=== PATIENT | male | born 1960 | race Caucasian/White ===

== ENCOUNTER 2025-03-20 19:11 | Emergency (ER) | payer MEDICARE, MEDICAID, SELFPAY ==
--- NOTE | ~2025-03-20 | XR_ITS ---
EXAMINATION: XR chest 2V Exam Date/Time: 03/20/2025 19:35 CDT HISTORY: L shoulder pain Comparison: None. RESULT: Lines, tubes, and devices: An electronic device projects over the chest. Surgical clips over the GE junction. Lungs and pleura: Clear. Cardiomediastinal silhouette: Unremarkable. Other: No acute upper abdominal finding. Mildly distracted transverse fracture of the superior angle of the right scapula. The right AC joint is widened to 12 mm. IMPRESSION: No acute cardiopulmonary process. Acute versus chronic fracture of the superior angle of the right scapula. Right AC joint widening as can be seen with acute or chronic low-grade AC joint injury. Reviewed, dictated and finalized at location K. IMPRESSION: No acute cardiopulmonary process. Acute versus chronic fracture of the superior angle of the right scapula. Right AC joint widening as can be seen with acute or chronic low-grade AC joint jaime dominguez.
--- NOTE | ~2025-03-20 | XR_ITS ---
EXAM: XR shoulder LT min 2V DATE: 03/20/2025 19:49 HISTORY: L shoulder pain . COMPARISON: None available. FINDINGS: Normal mineralization. No fracture or dislocation. No lytic or blastic lesion. Moderate AC joint and glenohumeral joint degenerative change. No erosion or periosteal change. Soft tissues with in normal limits. An electronic device projects over the midline chest. IMPRESSION: No acute osseous finding in the left shoulder. Reviewed, dictated and finalized at location K.
[2025-03-20 19:13] VITALS: BP 132/74; PULSE 71; RESP 16; TEMP 36.7; O2SAT 100
--- OUTSIDE RECORDS SUMMARY | 2025-03-20 19:14 | XMS_ITS | Data Portability ---
Author Organization [facility] [employer], [facility] Address [address] [place] [address] Assessment No assessment recorded. Plan of Treatment Reminders Order Date Submit Date Provider Last Modified By Organization Details Last Modified Time Details Appointments None recorded. Lab drug screen, urine 2023 024 keyer In-Office Order, Internal Use Only DO Not Attach Compendium DO Not Attach Compendium, Do Not Delete/merge, [id number] 4 17:51:21 urinalysis, dipstick 2023 024 keyer In-House Results, For Internal Use Only, Do Not Delete/merge, [id number] 4 17:51:14 Referral hematologis t referral 2023 024 GIORGIO Ceballos MD, [address] [place], [address], 5 05:01:51 oral surgery/den tist referral 2023 024 GIORGIO [facility], [address] [place], [address], 5 05:01:33 pain management referral 2023 024 [facility], [address] [place], [address], 5 05:01:33 cardiologis t referral 2023 024 GIORGIO Aguila [facility], [address] [place], [address], 5 05:01:33 psychiatris t referral 2023 024 GIORGIO Analia Arnold hnp, [address] [facility] [address], [place], [address], 5 05:01:33 EGD referral 2023 024 GIORGIO Aguila [facility] General Surgery, [address] [place], [address], 4 05:01:40 orthopedic surgeon referral 2023 024 GIORGIO Sorto MD, [address] [place] [address] , [place], [address], 4 05:01:40 Procedures None recorded. Surgeries None recorded. Imaging LDCT, chest, for lung cancer screening 2023 024 [facility] (Radiology), [address] [place], [address], 4 05:01:40 electrocard iogram, routine ECG, 12 leads min 2023 024 [facility] (Radiology), [address] [place] [address], [address], 4 05:01:40 US, echocardiog annalise 2023 024 [facility] (Radiology), [address] [place], [address], 4 05:01:05 Medication Orders celecoxib 200 mg capsule 2023 024 GIORGIO Chung. [facility] [place], [place], [address] [place], [place], [id number], 5 14:55:00 amitriptyli ne 75 mg tablet 2023 024 GIORGIO [facility] [place], [address], [place], [id number], 13:55:02 pantoprazol e 40 mg tablet,david yed release 2023 GIORGIO [facility]. [facility] [place], [address], [place], [id number], 5 10:03:51 atorvastati n 40 mg tablet 2023 GIORGIO Chung. [facility] [place], [address], [place], [id number], 13:55:01 ropinirole 3 mg tablet 2023 GIORGIO Chung. [facility] [place], [address], [place], [id number], 13:55:02 ergocalcife rol (vitamin D2) 1,250 mcg (50,000 unit) capsule 2023 GIORGIO Chung. [facility] [place], [address], [place], [id number], 4 09:31:29 metoprolol succinate ER 25 mg tablet,exte nded release 24 hr 2023 024 GIORGIO Chung. [facility] [place], [address], [place], [id number], 5 13:55:04 gabapentin 300 mg capsule 2023 024 GIORGIO Chung. [facility] [place], [address], [place], [id number], 13:55:03 tamsulosin 0.4 mg capsule 2023 024 GIORGIO Chung. [facility] [place], [facility], [place], [id number], 5 13:55:03 amoxicillin 875 mg-potgabrielleu m clavulanate 125 mg tablet 2023 024 ashley Chung. [facility] [place], [facility], [place], [id number], 4 13:35:35 bisoprolol fumarate 10 mg tablet 2022 023 kristie Chung. [facility] [place], [facility], [place], [id number], 4 15:27:51 Patient TargetsNo targets recorded. Patient Instructions Encounter Date Encounter Id Patient Instructions Last Modified By Organization Details Last Modified Time 08/01/2023 [id number] insomnia: care instructions keyer Not available 08/01/2023 10:36:36 substance use disorder: care instructions keyer Not available 08/01/2023 10:36:36 atrial fibrillation: care instructions keyer Not available 08/01/2023 10:36:36 Changing from metoprolol to bisoprolol. Pt will RTC in 1 month for follow up. keyer Not available 08/01/2023 10:40:33 02/13/2024 [id number] back care and preventing injuries: care instructions keyer Not available 02/13/2024 17:51:13 getting back to normal after low back pain: care instructions keyer Not available 02/13/2024 17:51:13 learning about relief for back pain keyer Not available 02/13/2024 17:51:13 atrial fibrillation: care instructions keyer Not available 02/13/2024 17:51:14 heart murmur: ca re instructions keyer Not available 02/13/2024 17:51:14 shortness of breath: care instructions keyer Not available 02/13/2024 17:51:13 learning about mood disorders keyer Not available 02/13/2024 17:51:14 Will treat oral infection at this time. Also will send pt to cardiology for a murmur, occasional chest pain, and a-fib. Will order EGD for ulcers, low-dose lung CT for follow-up on nodule and smoking risk, and echo for heart murmur, discussed that oral infections can travel to heart and can cause murmur so will need to rule that out. Will refer pt to ortho for closed dislocation of right shoulder that happened in 2022, and pain management in [place] for back pain. Pt has been non-compliant with treatments and medication in the past. Labs performed in clinic today. CBC, CMP, iron panel, A1C, PSA, TSH, Vitamin D, Vitamin B12, and lipid panel performed today as well as drug and alcohol urine screen. Urine tested positive for marijuana. Pt to RTC in 2 weeks for follow-up. After visit, urine was noted to be dark brown, instructed pt to go to ED. Report given to ED nurse at [facility]. Not available 02/13/2024 12:16:10 02/27/2024 [id number] Pt is seeing cardiology tomorrow, he has a dentist appt scheduled in March, he will be going to pain management in [place]. He will like to wait on increasing his gabapentin until he sees pain management. He states that the ortho did not take his insurance, but he wants to wait on that currently. Discussed lab results and ED visit from last visit, discussed abdominal CT and importance of liver MRI. Will refer pt to hematology for iron deficiency anemia. Pt to RTC in 3 months for follow-up and will recheck vitamin D at that time. Pt agreeable to poc. Not available 02/27/2024 16:31:37 Reason for Referral Pain Management Referral for Pain in pelvis Referring Physician: [facility], Encounter Date: 09/19/2023 Oral Surgery/dentist Referra l for Rampant dental caries Referring Physician: [facility], Encounter Date: 09/19/2023 Pain Management Referral for Low back pain Referring Physician: Family Tiff Tang, Encounter Date: 02/13/2024 Orthopedic Surgeon Referral for Pain of right shoulder joint Referring Physician: Marti Neal [facility], Encounter Date: 02/13/2024 EGD Referral for Peptic ulce r Referring Physician: Marti Neal [facility], Encounter Date: 02/13/2024 Psychiatrist Referral for De pressive disorder Referring Physician: Marti Neal [facility], Encounter Date: 02/13/2024 Director Strategic Planning Referral for At rial fibrillation Referring Physician: Marti Neal [facility], Encounter Date: 02/13/2024 Oral Surgery/dentist Referra l for Infection of tooth Referring Physician: Marti Neal [facility], Encounter Date: 02/13/2024 Referring Physician: No López [facility], Encounter Date: 02/27/2024 Results Created Date Observation Date Name Description Value Unit Range Abnormal Flag Note LastModifiedBy Organization Detail LastModifiedTime 02/13/20 24 02/13/2024 urina lysis , dipst ick Leukocytes 0 Not Available In-Hous e Results For Internal Use Only, Do Not Delete/merge, 02/13/2024 14:46:25 02/13/20 24 02/13/2024 urina lysis , dipst ick Nitrite negati ve Not Available In-House Results For Internal Use Only, Do Not Delete/merge, 02/13/2024 14:46:25 02/13/20 24 02/13/2024 urina lysis , dipst ick Urobilinogen 2 Not Available In-Ho use Results For Internal Use Only, Do Not Delete/merge, 02/13/2024 14:46:25 02/13/20 24 02/13/2024 urina lysis , dipst ick Protein 15 Not Available In-House Results For Internal Use Only, Do Not Delete/merge, 02/13/2024 14:46:25 02/13/20 24 02/13/2024 urina lysis , dipst ick pH 6 Not Available In-House Results For Internal Use Only, Do Not Delete/merge, 02/13/2024 14:46:25 02/13/20 24 02/13/2024 urina lysis , dipst ick Blood 0 Not Available In-House Results For Internal Use Only, Do Not Delete/merge, 02/13/2024 14:46:25 02/13/20 24 02/13/2024 urina lysis , dipst ick Specific Leming 1.015 Not Available In-[place] se Results For Internal Use Only, Do Not Delete/merge, 02/13/2024 14:46:25 02/13/20 24 02/13/2024 urina lysis , dipst ick Ketone 0 Not Available In-House Results For Internal Use Only, Do Not Delete/merge, 02/13/2024 14:46:25 02/13/20 24 02/13/2024 urina lysis , dipst ick Bilirubin 0 Not Available In-House Results For Internal Use Only, Do Not Delete/merge, 02/13/2024 14:46:25 02/13/20 24 02/13/2024 urina lysis , dipst ick Glucose 0 Not Available In-House Results For Internal Use Only, Do Not Delete/merge, 02/13/2024 14:46:25 02/13/20 24 02/13/2024 urina lysis , dipst ick Appearance clear Not Available In-Hous e Results For Internal Use Only, Do Not Delete/merge, 02/13/2024 14:46:25 02/13/20 24 02/13/2024 urina lysis , dipst ick Color dark brown Not Available In-House Results For Internal Use Only, Do Not Delete/merge, 02/13/2024 14:46:25 02/13/2002/13/2024 drug scree n, urine Amphetamines (AMP) negati ve Not Available In-Office Order Internal Use Only DO Not Attach Compendium DO Not Attach Compendium, Do Not Delete/merge, 02/13/2024 14:45:41 02/13/20 24 02/13/2024 drug scree n, urine Barbiturates (BAR) negati ve Not Available In-Office Order Internal Use Only DO Not Attach Compendium DO Not Attach Compendium, Do Not Delete/merge, 02/13/2024 14:45:41 02/13/20 24 02/13/2024 drug scree n, urine Benzodiazepi aisha (BZO) negati ve Not Available In-Office Order Internal Use Only DO Not Attach Compendium DO Not Attach Compendium, Do Not Delete/merge, 02/13/2024 14:45:41 02/13/20 24 02/13/2024 drug scree n, urine Cocaine (AFSANEH) negati ve Not Available In-Office Order Internal Use Only DO Not Attach Compendium DO Not Attach Compendium, Do Not Delete/merge, 02/13/2024 14:45:41 02/13/2002/13/2024 drug scree n, urine Ecstasy (MDMA) negati ve Not Available In-Office Order Internal Use Only DO Not Attach Compendium DO Not Attach Compendium, Do Not Delete/merge, 02/13/2024 14:45:41 02/13/2002/13/2024 drug scree n, urine Marijuana (THC) positi ve Not Available In-Office Order Internal Use Only DO Not Attach Compendium DO Not Attach Compendium, Do Not Delete/merge, 02/13/2024 14:45:41 02/13/2002/13/2024 drug scree n, urine Methadone (MTD) negati ve Not Available In-Office Order Internal Use Only DO Not Attach Compendium DO Not Attach Compendium, Do Not Delete/merge, 02/13/2024 14:45:41 02/13/2002/13/2024 drug scree n, urine Methamphetam ine (mAMP/MET) negati ve Not Available In-Office Order Internal Use Only DO Not Attach Compendium DO Not Attach Compendium, Do Not Delete/merge, 02/13/2024 14:45:41 02/13/2002/13/2024 drug scree n, urine Morphine (OPI) negati ve Not Available In-Office Order Internal Use Only DO Not Attach Compendium DO Not Attach Compendium, Do Not Delete/merge, 02/13/2024 14:45:41 02/13/2002/13/2024 drug scree n, urine Oxycodine (OXY) negati ve Not Available In-Office Order Internal Use Only DO Not Attach Compendium DO Not Attach Compendium, Do Not Delete/merge, [id number] 02/13/2024 14:45:41 02/13/20 24 02/13/2024 drug scree n, urine Tricyclic Antidepressa nts (TCA) negati ve Not Available In-Office Order Internal Use Only DO Not Attach Compendium DO Not Attach Compendium, Do Not Delete/merge, [id number] 02/13/2024 14:45:41 11/16/19 24 11/15/2023 imagi ng/di agnos tic resul t No observ ation record ed. [facility] Scheduling [address] [place], [address], 11/16/2023 11:45:33 11/16/19 24 11/15/2023 imagi ng/di agnos tic resul t No observ ation record ed. [facility]uling [address] [place], [address], 11/16/2023 11:48:00 02/13/20 24 02/13/2024 imagi ng/di agnos tic resul t No observ ation record ed. [facility] [address] [place], [address], 02/13/2024 15:55:18 02/13/20 24 02/13/2024 imagi ng/di agnos tic resul t No observ ation record ed. [facility] [address] [place], [address], 02/13/2024 16:19:33 02/13/20 24 02/13/2024 imagi ng/di agnos tic resul t No observ ation record ed. [facility] [address] [place], [address], 02/13/2024 16:25:26 06/11/02/13/2024 imagi ng/di agnos tic resul t No observ ation record ed. [facility] [address] [place], [address], 02/13/2024 17:04:16 05/01/20 24 04/27/2024 imagi ng/di agnos tic resul t No observ ation record ed. [facility] [address] [place], [address], 05/01/2024 15:36:01 05/03/20 24 05/03/2024 imagi ng/di agnos tic resul t No observ ation record ed. [facility] [address] [place], [address], 05/03/2024 13:03:13 05/03/20 24 05/03/2024 imagi ng/di agnos tic resul t No observ ation record ed. GIORGIO Not Available 2023 14:09:35 05/28/20 24 05/27/2024 imagi ng/di agnos tic resul t No observ ation record ed. [facility] [address] [place], [address], 05/28/2024 14:34:23 06/04/20 24 06/03/2024 imagi ng/di agnos tic resul t No observ ation record ed. [facility] [address] [place], [address], 06/04/2024 08:23:18 08/14/20 24 08/13/2024 imagi ng/di agnos tic resul t No observ ation record ed. [facility] [address] [place], [address], 08/14/2024 14:22:10 09/10/19 25 09/10/2024 imagi ng/di agnos tic resul t No observ ation record ed. [facility] [address] [place], [address], 09/10/2024 07:54:05 09/10/19 25 09/10/2024 imagi ng/di agnos tic resul t No observ ation record ed. [facility] [address] [place], [address], 09/10/2024 08:02:44 09/10/19 25 09/10/2024 imagi ng/di agnos tic resul t No observ ation record ed. [facility] [address] [place], [address], 09/10/2024 08:04:12 09/12/19 25 09/12/2024 imagi ng/di agnos tic resul t No observ ation record ed. [facility] [address] [place], [address], 09/12/2024 20:41:34 09/24/19 25 09/24/2024 imagi ng/di agnos tic resul t No observ ation record ed. [facility] [address] [place], [address], 09/24/2024 15:18:11 11/05/19 25 11/04/2024 imagi ng/di agnos tic resul t No observ ation record ed. [facility] [address] [place], [address], 11/04/2024 17:54:33 12/08/19 25 12/07/2024 imagi ng/di agnos tic resul t No observ ation record ed. [facility] Scheduling [address] [place], [address], 12/07/2024 15:53:14 Result Notes None recorded. Problems Name Problem SNOMED Code Status Onset Date Resolution Date Notes Provider Name and Address Organization Details Recorded Time Atrial fibrillation 80290738 Active ELLEN Rivas [address] [place], [address], [facility] [employer] [facility] 3 12:24:05 Hyperlipidemia 47768299 Active 2022 Mrati EscalanteAlonzo Neal, CHIEF WARDEN [address] [place], [address], [facility] [employer] [facility] 3 12:24:09 Neuropathy 839424490 Active 2022 Marti Neal CHIEF [address], [address], [facility] [employer] [facility] 3 12:24:12 Essential hypertension 18189639 Active 2022 Marti Neal [address], [address], [facility] [employer] [facility] 3 12:24:13 Gastroesophage al reflux disease 524895291 Active 2022 Marti Neal CH[address], [address], [employer] [facility] 3 12:24:15 Insomnia 510215937 Active 2022 Marti Neal [address], [address], [employer] [facility] 3 12:24:17 Restless legs 85318405 Active 2022 Marti Neal CHIEF [address] [place], [address], [facility] [employer] [facility] 3 12:24:22 Spasm 94615491 Active 2022 Marti Neal CHIEF WARDEN [address] [place], [address], [employer] [facility] 3 12:24:23 Sleep apnea 50068732 Active 2022 Marti Neal CHIEF [facility]ARDEN [address] [place], [address], [facility] [employer] [facility] 3 12:25:39 Problem Notes None recorded. Medical Equipment None Reported. Medications Name Sig Start Date Stop Date Status Note LastModified by Organization Details LastModified Time celecoxib 200 mg capsule TAKE ONE TABLET EVERY MORNING (m) active Not Available Not Available No t Available cyclobenz aprine 10 mg tablet Take 1 tab three times daily as needed for 30 days for muscle spasms. 02/26 completed Not Available Not Available Not Available atorvasta tin 40 mg tablet TAKE ONE TABLET AT BEDTIME (b) active Not Available Not Available No t Available ropinirol e 1 mg tablet 12/29 completed Not Available Not Available Not Available amitripty line 75 mg tablet TAKE ONE TABLET AT BEDTIME (BOTTLE) active Not Available Not Available No t Available tizanidin e 4 mg tablet Take 1 tablet twice a day by oral route as needed for 30 days. 12/29 completed Not Available Not Available Not Available hydrocodo ne 5 mg-acetam inophen 325 mg tablet TAKE ONE TABLET BY MOUTH EVERY 4-6 hours NEEDED FOR pain 08/01 completed Not Available Not Available Not Available ropinirol e 3 mg tablet TAKE ONE TABLET AT BEDTIME (b) active Not Available Not Available No t Available tramadol 50 mg tablet Take 1 tablet (50 mg total) by mouth every 4 to 6 hours as needed for pain active Not Available Not Available No t Available quetiapin e 100 mg tablet Take 1 tablet every day by oral route at bedtime for 30 days. 12/29 completed Not Available Not Available Not Available amitripty line 50 mg tablet TAKE ONE TABLET AT BEDTIME (b) 08/01 completed Not Available Not Available Not Available bisoprolo l fumarate 10 mg tablet Take 1 tablet every day by oral route for 30 days. 09/19 completed going back to metoprol ol Not Available Not Available Not Available Vitamins B Complex tablet TAKE 1 TABLET BY MOUTH EVERY DAY active Not Available Not Available No t Available famotidin e 20 mg tablet Take 1 tablet twice a day by oral route as directed for 30 days. 12/28 completed Not Available Not Available Not Available chlordiaz epoxide 25 mg capsule 12/29 completed Not Available Not Available Not Available tamsulosi n 0.4 mg capsule TAKE TWO CAPSULES EVERY MORNING (m) active Not Available Not Available No t Available doxycycli ne monohydra te 100 mg capsule Take 1 capsule (100 mg total) by mouth 2 (two) times daily for 10 days 08/01 completed Not Available Not Available Not Available ropinirol e 2 mg tablet 12/29 completed Not Available Not Available Not Available pantopraz ole 40 mg tablet,de layed release TAKE ONE TABLET EVERY MORNING (m) active Not Available Not Available No t Available mirtazapi ne 30 mg tablet Take 1 tablet every day by oral route at bedtime for 30 days. 12/29 completed Not Available Not Available Not Available gabapenti n 300 mg capsule TAKE THREE CAPSULES TWICE DAILY (mb) active Not Available Not Available No t Available mirtazapi ne 15 mg tablet Take 1 tablet every day by oral route at bedtime for 30 days. 12/29 completed Not Available Not Available Not Available metoprolo l succinate ER 25 mg tablet,ex tended release 24 hr TAKE ONE TABLET EVERY MORNING (m) active Not Available Not Available No t Available lorazepam 1 mg tablet Take 1 tablet by mouth 1 hour prior to procedur e. active Not Available Not Available No t Available diazepam 10 mg tablet TAKE 1 TABLET ORAL prior to procedur e 08/01 completed Not Available Not Available Not Available Vitamin D2 1,250 mcg (50,000 unit) capsule TAKE ONE CAPSULE MONDAY (m) 2023 active Not Available Not Available Not Avai lable amoxicill in 875 mg-potass ium clavulana te 125 mg tablet TAKE ONE TABLET EVERY 12 HOURS UNTIL GONE active Not Available Not Available No t Available duloxetin e 30 mg capsule,d elayed release TAKE ONE CAPSULE AT BEDTIME (B) 02/26 completed Not Available Not Available Not Available quetiapin e ER 50 mg tablet,ex tended release 24 hr Take 2 tablets every day by oral route at bedtime. 12/28 completed Not Available Not Available Not Available quetiapin e ER 150 mg tablet,ex tended release 24 hr Take 1 tablet every day by oral route as directed for 30 days. 08/01 completed Not Available Not Available Not Available B Complex 1 (with folic acid) 0.4 mg tablet TAKE ONE TABLET EVERY MORNING (m) active Not Available Not Available No t Available Sutab 1.479-0.1 88-0.225 gram tablet USE DIRECTED 12/29 completed Not Available Not Available Not Available Vitals Date Recorded Body height Body mass index (BMI) Body weight Body temperature Heart rate Oxygen saturation Oxygen saturation in Arterial blood by Pulse oximetry Respiratory rate Systolic And Diastolic Provider Name and Address Organization Details Last Updated DateTime 4 180.34 cm 28.7 kg/m2 68109.0 3 g 99.3 [degF] 58 /min 95 % 95 % 16 /min 132/70 mm[Hg] [employer] 4 14:37:34 Date Recorded Body height Body mass index (BMI) Body weight Body temperature Heart rate Oxygen saturation Oxygen saturation in Arterial blood by Pulse oximetry Respiratory rate Systolic And Diastolic Provider Name and Address Organization Details Last Updated DateTime 4 180.34 cm 25.1 kg/m2 99684.6 3 g 97.5 [degF] 68 /min 99 % 99 % 18 /min 136/74 mm[Hg] [employer] 4 10:30:12 Date Recorded Body height Body mass index (BMI) Body weight Body temperature Heart rate Oxygen saturation Oxygen saturation in Arterial blood by Pulse oximetry Respiratory rate Systolic And Diastolic Provider Name and Address Organization Details Last Updated DateTime 4 180.34 cm 25.1 kg/m2 32277.9 9 g 98.3 [degF] 67 /min 97 % 97 % 18 /min 101/68 mm[Hg] [employer] 4 13:39:37 Date Recorded Body height Body temperature Heart rate Oxygen saturation Oxygen saturation in Arterial blood by Pulse oximetry Body mass index (BMI) Body weight Respiratory rate Systolic And Diastolic Systolic And Diastolic Provider Name and Address Organization Details Last Updated DateTime 3 180.34 cm 96.8 [degF] 60 /min 96 % 96 % 28.5 kg/m2 41823.8 4 g 20 /min 193/100 mm[Hg] 174/93 mm[Hg] [employer] 3 10:10:02 Social History None recorded. Functional Status None recorded. Mental Status None recorded. Family History Relationship Description Onset Age of this Age Resolved Age Notes LastModified by Organization Details LastModified Time Unspecified Relation Hypertensive disorder oly Not available 2022 13:42:21 Unspecified Relation Cholesterol/ high density lipoprotein ratio above reference range [email or web address] Not available 2022 13:42:59 Unspecified Relation Heart disease [email or web address] Not available 2022 13:43:12 Unspecified Relation Diabetes mellitus [email or web address] Not available 2022 13:45:23 Medical History Condition Response Coronary Artery Disease N Gout N Other N Blood Diseases N Kidney Stones N Hyperthyroidism N Blood Transfusion N mrsa exposure N Lung Disease N COPD N Depression N Hypothyroidism N Defects or Inherited Disease N Developmental or Behavioral Disorders N Breast Problem N Anxiety Disorder N Muscle, Joint, or Bone Problems N Obesity N Vision or Eye Problems Y Arthritis Y Chronic ear infections N Infertility N Mental Disorder N Cancer N Stroke N Endometriosis N Bladder or Kidney Problems N High Cholesterol N Liver Disease N Fibromyalgia N Headaches N Kidney Disease N Heart Problems N Ear or Hearing Problems N Hospitalizations N Thyroid Problems N GI Problems Y Eating Disorder Y Skin Problems N Anemia N Constipation N Mental Illness N Diabetes N Difficulty swallowing N Seizures/Epilepsy N Tuberculosis N AIDS/HIV N Congestive Heart Failure (CHF) N Eczema N Diverticulitis N Abuse/Domestic Violence N Asthma N Allergies N Reflux/GERD N Hepatitis N Heart Disease N Hypertension N Pre-Eclampsia N Chicken Pox N Autism Spectrum Disorder (ASD) N Osteoporosis N Past Encounters Encounter ID Performer Location Encounter Start Date Encounter Closed Date Diagnosis/Indication Diagnosis SNOMED-CT Code Diagnosis ICD10 Code Diagnosis Note [id number] [address] 12/29/2022 11:22:14 12/29/2022 12:58:09 Hyperlipidemia 85710405 E78.5 Neuropathy 056725133 G62 .9 Essential hypertension 78849338 I10 Gastroesop hageal reflux disease 652115015 K21.9 Insomnia 226885297 G47.0 0 Restless legs 33416887 G 25.81 Spasm 08178726 R25.2 Vitamin B deficiency 479 12950 E53.9 Sleep apnea 11494744 G47 .30 Low back pain 776583233 M54.50 [id number] Marti Neal, [address] [address] 03/14/2023 12:42:10 03/14/2023 23:44:26 Insomnia 492842185 G47.00 Spasm 41961370 R25.2 Neuropathy 497270314 G62 .9 Essential hypertension 40640352 I10 Gastroesop hageal reflux disease 769964834 K21.9 Arthritis 6953919 M19.90 Restless legs 32594736 G 25.[address] [facility] risk of sexually transmitted infection 283500472 Z20.[id number] [address] 03/28/2023 13:38:24 03/28/2023 15:09:23 Injury of shoulder region 764362934 S49.91XA Exposure t o SARS-CoV-2 786493665 Z20.822 [id number] [place] [id number] 08/01/2023 09:57:04 08/01/2023 10:47:01 Atrial fibrillation 33795721 I48.91 Alcoholism 5996620 F10.2 0 Insomnia 582349926 G47.0 0 [id number] Marti Vincent [address] [address] 02/13/2024 10:19:30 05/14/2024 22:42:38 Low back pain 301824087 M54.50 Atrial fibrillation 4943 6004 I48.91 R07.89 R06.00 Pain of ri ght shoulder joint 2480027385 1846558 M25.511 S43.006S Peptic ulcer 49389097 K2 7.9 Depressive disorder 3548 9007 F32.A Infection of tooth 33278 8007 K04.7 Dyspnea 092481275 R06.00 F17.200 Heart murmur 99857648 R0 1.1 Insomnia 572681356 G47.0 0 Hyperlipidemia 55460006 E78.5 Vitamin B deficiency 479 39623 E53.9 Arthritis 9027333 M19.90 Spasm 28102724 R25.2 Neuropathy 158434128 G62 .9 Essential hypertension 01523454 I10 Gastroesop hageal reflux disease 918659451 K21.9 Restless legs 56014101 G 25.81 Benign pro static hyperplasia 965157003 N40.0 Anxiety 82703900 F41.9 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9 Health Concerns Section Related Observation LastModified by Organization Detai ls LastModified Time None Recorded Concern Status LastModified by Organization Details LastModified Time None Recorded Advance Directives Directive None Recorded Payers Insurance Date Sequence Insurance Name Policy Number Policy Feng Covered Member ID Feng Member ID Guarantor Name 05/24/2024 1 [employer] (MEDICARE REPLACEMENT/AD VANTAGE - PPO) Miguel Ángel Delgado [id number] Miguel Ángel Delgado 04/16/2024 1 [employer] Miguel Ángel Delgado [id number] Miguel Ángel Delgado 04/16/2024 1 [employer] (MEDICARE) Miguel Ángel Delgado [id number] Miguel Ángel Delgado 04/16/2024 1 [place] [employer] Miguel Ángel Delgado [id number] Miguel Ángel Delgado 04/16/2024 2 [facility] - DOS ON OR AFTER 21 (MEDICAID REPLACEMENT - HMO) Miguel Ángel Delgado [id number] Miguel Ángel Delgado 03/15/2025 1 [employer] (MEDICARE) Miguel Ángel Delgado [id number] Miguel Ángel Delgado 04/16/2024 1 [facility] (MEDICARE REPLACEMENT/AD VANTAGE - HMO) Miguel Ángel Delgado [id number] Miguel Ángel Delgado 04/16/2024 [facility] - DOS ON OR AFTER 21 (MEDICAID REPLACEMENT - HMO) Miguel Ángel Delgado [id number] Miguel Ángel Delgado 11/14/2024 2 [place]: [facility] Miguel Ángel Delgado [id number] Miguel Ángel Delgado Notes Date Note Type Note Provider Name and Address Organization Details Recorded Time 08/01/2023 text/html Patient presents today for complications with Afib, dizziness, light-headed, and sometimes he is passing out. Patient states he is an alcoholic, trying to get into rehab. Patient states he has no other concerns today. He got out of rehab in November and ended up going back to drinking and he notices that his Afib has increased since he started drinking. He has been falling lately and that has been causing him problems.He is not sure what it will take to keep him off of alcohol. It has been affecting his sleep as well. He is on the list to get back into rehab hopefully soon. He goes up to [place] when he goes. He is hoping to get off of alcohol soon. He went to the ER about a week ago and he states that he tested positive for meth, though he states that he has never done that. He does use cannabis, and he wonders if there was some that was laced with it. Marti Neal, [facility] [address] [place], [address], [facility] [employer] [facility] 08/01/2023 10:40:41 02/13/2024 text/html Patient presents today for having issues with teeth, said he was prescribed an antibiotic for this in the past, missed appointment with dentist to get teeth pulled. Patient states he is weak, doesn't remember the last time he ate. Patient is having extreme weakness, dizziness. Patient states he passes out due to his heart. He does not remember when he ate last, he has a poor appetite. He had gastric bypass surgery in January 2015. He has ulcers in his stomach since 2016 and was supposed to get an EGD, but has not had that done yet. Pt fell within 6 months, he saw pain mgmt in [place] for an epidural, but reports he missed an appt and the pain mgmt clinic won't see him anymore, so he will like to see [facility]. He did not get bloodwork done. He had a colonoscopy done and was told he was good for 10 years. Pt complains of right shoulder pain, stomach pain, and occasional chest pain. He complains of weakness, fatigue. He has a history of iron deficiency. He stopped drinking 21 days ago, he had DTs during withdrawal. He stopped cocaine use in 2017. Pt currently smokes cigarettes. He reports depression and would like to see a psychiatrist. He has stopped taking his psych meds. He is barely able to care for his house, and has a caregiver that helps take care of him. He gets leg cramps occasionally from the statins, he takes the cyclobenazprine which helps, but states he does not want to take it. Marti Neal, [place] [address] [place], [address], [employer] 02/13/2024 17:52:26 02/27/2024 text/html Patient presents today for follow up on labs, patient states he hasn't been sleeping well. Patient states he has no other concerns today. He states the gabapentin is not helping with his pain. He is going to see [facility]. He will see [facility] in [place] on the 11 of March. Marti Neal [place] [address] [place], [address], [employer] 02/27/2024 23:33:27
--- OUTSIDE RECORDS SUMMARY | 2025-03-20 19:14 | XMS_ITS | Data Portability ---
[facility] Address [address] [place] [address] Care Team Providers Care Food Preparation Kitchen Aide Name Role Phone RASHIDA MCALLISTER Outreach Assistant Assessment No assessment recorded. Plan of Treatment Reminders Order Date Submit Date Provider Last Modified By Organization Details Last Modified Time Details Appointments None recorde d. Lab CBC w/ auto diff 2022 023 GIORGIO [facility] (Centralized Electronic Ordering - All Locations), Patient Can Go To The Location Of Their Choice, [id number] 3 07:09:42 CBC w/ auto diff 2021 022 GIORGIO [facility] (Centralized Electronic Ordering - All Locations), Patient Can Go To The Location Of Their Choice, [id number] 2 06:08:23 BMP, serum or plasma 2021 022 GIORGIO [facility] (Centralized Electronic Ordering - All Locations), Patient Can Go To The Location Of Their Choice, [id number] 2 06:08:21 HbA1c (hemogl obin A1c), blood 2021 022 GIORGIO [facility] (Centralized Electronic Ordering - All Locations), Patient Can Go To The Location Of Their Choice, [id number] 2 06:08:22 HbA1c (hemogl obin A1c), blood 2021 022 GIORGIO [facility] (Centralized Electronic Ordering - All Locations), Patient Can Go To The Location Of Their Choice, [id number] 2 11:10:01 albumin /creati nine, mass ratio, urine 07/07/ 2022 07/07/2 022 GIORGIO [facility] (Centralized Electronic Ordering - All Locations), Patient Can Go To The Location Of Their Choice, 11:09:59 lipid panel, serum 2021 GIORGIO [facility] (Centralized Electronic Ordering - All Locations), Patient Can Go To The Location Of Their Choice, 11:09:59 vitamin B12 + folate, serum or blood 2021 GIORGIO [facility] (Centralized Electronic Ordering - All Locations), Patient Can Go To The Location Of Their Choice, 11:10:00 CBC w/ auto diff 2021 GIORGIO [facility] (Centralized Electronic Ordering - All Locations), Patient Can Go To The Location Of Their Choice, 11:09:57 CMP, serum or plasma 2021 GIORGIO [facility] (Centralized Electronic Ordering - All Locations), Patient Can Go To The Location Of Their Choice, 11:09:58 TSH, ultra-s ensitiv e, serum 2021 GIORGIO [facility] (Centralized Electronic Ordering - All Locations), Patient Can Go To The Location Of Their Choice, 11:10:05 unliste d lab - compreh ensive drug analysi s,ur 2021 GIORGIO [facility] (Centralized Electronic Ordering - All Locations), Patient Can Go To The Location Of Their Choice, 17:07:25 PSA, total, serum or plasma 2021 GIORGIO [facility] (Centralized Electronic Ordering - All Locations), Patient Can Go To The Location Of Their Choice, 10:13:15 vitamin D, 25-hydr oxy, total, serum 2021 GIORGIO [facility] (Centralized Electronic Ordering - All Locations), Patient Can Go To The Location Of Their Choice, 2 11:10:01 Referral pulmono logist referra l - Pt will be taking the [facility] bus to appt 2021 [email or web address] Rashida Mcallister DO, [address] [place] [address], [address], 3 10:48:14 general surgeon referra l 2021 [email or web address] Tiffany Bhagat MD, [address] [place], [address], 12:29:13 Procedures None recorde d. Surgeries None recorde d. Imaging LDCT, chest, for lung cancer screeni ng - please call pt to chaparro catalan @ [phone] [facility] 2021 [facility] (Radiology), [address] [place], [address], 2 14:18:59 Medication Orders pantopr azole 40 mg tablet, delayed release [address] [facility] [place], [place], [address] [place] [address], [id number], 3 15:01:42 quetiap ine ER 150 mg tablet, extende d release 24 hr [address] [facility] [place], [address] [place] [address], [id number], 4 12:14:42 atorvas tatin 40 mg tablet [address] [facility] [place], [address] [place] [address], [id number], 2 10:31:15 quetiap ine ER 50 mg tablet, extende d release 24 hr [address] [facility] [place], [address], [place], [id number], 3 21:19:51 mirtaza pine 30 mg tablet [address] [facility] [place], [address], [place], [id number], 2 17:42:28 mirtaza pine 15 mg tablet [address] [facility] [place], [address] [place] [address], [id number], 2 14:19:09 ropinir ole 3 mg tablet [address] [facility] [place], [address], [place], [id number], 3 14:16:44 metopro lol succina te ER 25 mg tablet, extende d release 24 hr [address] [facility] [place], [address] [place], [place], [id number], 2 14:51:26 tamsulo sin 0.4 mg capsule [address] [facility] [place], [address] [place], [place], [id number], 2 14:51:26 famotid ine 20 mg tablet [address] [facility] [place], [address] [place], [place], [id number], 3 14:48:25 Patient TargetsNo targets recorded. Patient Instructions Encounter Date Encounter Id Patient Instructions Last Modified By Organization Details Last Modified Time 03/10/2022 [id number] smoking cessatio n counseling, greater than 3 minutes up to 10 minutes* [email or web address] Not available 10/24/2022 10:59:52 type 2 diabetes: care instructions Not available 03/10/2022 14:59:25 insomnia: care instructions Not available 03/10/2022 14:59:25 sleep apnea: car e instructions Not available 03/10/2022 15:01:03 restless legs syndrome: care instructions Not available 03/10/2022 14:59:25 chronic pain: ca re instructions Not available 03/10/2022 15:01:03 atrial fibrillation: care instructions Not available 03/10/2022 14:59:25 benign prostatic hyperplasia: care instructions Not available 03/10/2022 14:59:25 dash diet: care instructions Not available 03/10/2022 14:59:25 high blood pressure: care instructions Not available 03/10/2022 14:59:25 substance use disorder: care instructions Not available 03/10/2022 14:49:50 gastroesophageal reflux disease (GERD): care instructions Not available 03/10/2022 14:59:25 learning about m ood disorders Not available 03/10/2022 15:01:03 RTC in 2 weeks f or f/u and PRN with new or worsening sx. To ED with acute distress. Not available 03/10/2022 14:46:45 04/11/2022 [id number] dash diet: care instructions Not available 04/15/2022 01:05:10 high blood pressure: care instructions Not available 04/15/2022 01:05:10 substance use disorder: care instructions Not available 04/15/2022 01:05:10 type 2 diabetes: care instructions Not available 04/15/2022 01:05:10 insomnia: care instructions Not available 04/15/2022 01:05:10 RTC in 1 mo for f/u and PRN with new or worsening sx. To ED with acute distress. Not available 04/15/2022 00:58:36 07/22/2022 [id number] leg and ankle edema: care instructions Not available 07/22/2022 17:49:11 dash diet: care instructions Not available 07/22/2022 17:49:11 high blood pressure: care instructions Not available 07/22/2022 17:49:11 A healthy lifestyle: care instructions Not available 07/22/2022 17:42:49 arthritis: care instructions Not available 07/22/2022 17:49:11 Quitting Tobacco : Care Instructions Not available 07/22/2022 17:49:11 insomnia: care instructions Not available 07/22/2022 17:49:11 Nonalcoholic Fat ty Liver Disease (NAFLD): Care Instructions Not available 07/22/2022 17:49:11 gastroesophageal reflux disease (GERD): care instructions Not available 07/22/2022 17:49:11 learning about m ood disorders Not available 07/22/2022 17:49:11 sleep apnea: car e instructions Not available 07/22/2022 17:49:11 restless legs syndrome: care instructions Not available 07/22/2022 17:49:11 atrial fibrillation: care instructions Not available 07/22/2022 17:49:11 benign prostatic hyperplasia: care instructions Not available 07/22/2022 17:49:11 RTC in 1 mo for f/u and PRN. To ED with acute distress. Not available 07/22/2022 17:44:14 09/22/2022 [id number] A healthy lifestyle: care instructions Not available 09/24/2022 21:22:16 Quitting Tobacco : Care Instructions Not available 09/24/2022 21:23:28 learning about m ood disorders Not available 09/24/2022 21:21:26 RTC in 1 mo for f/u and PRN with new or worsening sx. To ED with acute distress. Not available 09/24/2022 21:20:18 10/27/2022 [id number] A healthy lifestyle: care instructions Not available 10/27/2022 23:48:24 high blood pressure: care instructions Not available 10/27/2022 23:48:24 dash diet: care instructions Not available 10/27/2022 23:48:24 type 2 diabetes: care instructions Not available 10/27/2022 23:48:24 gastroesophageal reflux disease (GERD): care instructions Not available 10/27/2022 23:48:24 learning about m ood disorders Not available 10/27/2022 23:48:24 RTC in 2 weeks f or f/u and PRN with new or worsening sx. To ED with acute distress. Not available 10/27/2022 23:48:39 Reason for Referral General Surgeon Referral for Screening for malignant neoplasm of colon Referring Physician: Silvana Galvin [facility], Encounter Date: 03/10/2022 Outreach Assistant Referral for N odule of lung Pt will be taking the [facility] bus to appt Referring Physician: Silvana Galvin [facility], Encounter Date: 04/11/2022 Results Created Date Observation Date Name Description Value Unit Range Abnormal Flag Note LastModifiedBy Organization Detail LastModifiedTime 03/10/20 22 03/11/2022 PROST ATE-S PECIF IC AG prostate specific Ag 1.1 NG/mL 0.0-4. 0 [place] ECLIA metho dolog y. Accor ding to the Ameri can [employer] g[employer] iatio n, Serum PSA shoul d decre ase and remai n at undet ectab le level s after radic al prost atect william. The AUA defin es bioch emica l recur rence as an initi al PSA value 0.2 ng/mL or great er follo wed by a subse quent confi rmato ry PSA value 0.2 ng/mL or great er. Value s obtai morenita with diffe rent assay metho ds or kits canno t be used inter cabrera eably . Resul ts canno t be inter prete d as absol adalberto evide nce of the prese nce or absen ce of norah padilla se. Not Available [facility] ([facility]) [address] [facility], [place], [address], 03/11/2022 10:13:15 03/10/20 22 03/11/2022 CBC WITH DIFFE RENTI AL/PL ATELE T WBC 7.0 x10e3 /uL 3.4-10 .8 Not Available [facility] ([facility]) [address] [facility], [place], [address], 03/11/2022 11:09:57 03/10/20 22 03/11/2022 CBC WITH DIFFE RENTI AL/PL ATELE T RBC 5.06 x10e6 /uL 4.14-5 .80 Not Available [facility] ([facility]) [address] [facility], [place], [address], 03/11/2022 11:09:57 03/10/20 22 03/11/2022 CBC WITH DIFFE RENTI AL/PL ATELE T hemoglobin 14.5 g/dL 13.0-1 7.7 Not Available [facility] ([facility]) [address] [facility], [place], [address], 03/11/2022 11:09:57 03/10/20 22 03/11/2022 CBC WITH DIFFE RENTI AL/PL ATELE T hematocrit 44.1 % 37.5-5 1.0 Not Available [facility] ([facility]) [address] [place], [address], 03/11/2022 11:09:57 03/10/20 22 03/11/2022 CBC WITH DIFFE RENTI AL/PL ATELE T MCV 87 fL 79-97 Not Available [facility] ([facility]) [address] [place], [address], 03/11/2022 11:09:57 03/10/20 22 03/11/2022 CBC WITH DIFFE RENTI AL/PL ATELE T MCH 28.7 pg 26.6-3 3.0 Not Available [facility] ([facility]) [address] [facility], [place], [address], 03/11/2022 11:09:57 03/10/20 22 03/11/2022 CBC WITH DIFFE RENTI AL/PL ATELE T MCHC 32.9 g/dL 31.5-3 5.7 Not Available [facility] ([facility]) [address] [facility], [place], [address], 03/11/2022 11:09:57 03/10/20 22 03/11/2022 CBC WITH DIFFE RENTI AL/PL ATELE T RDW 14.6 % 11.6-1 5.4 Not Available [facility] ([facility]) [address] [facility], [place], [address], 03/11/2022 11:09:57 03/10/20 22 03/11/2022 CBC WITH DIFFE RENTI AL/PL ATELE T platelets 353 x10e3 /uL 150-45 0 Not Available [facility] ([facility]) [address] [facility], [place], [address], 03/11/2022 11:09:57 03/10/20 22 03/11/2022 CBC WITH DIFFE RENTI AL/PL ATELE T neutrophils 66 % not estab. Not Available [facility] ([facility]) [address] [facility], [place], [address], 03/11/2022 11:09:57 03/10/20 22 03/11/2022 CBC WITH DIFFE RENTI AL/PL ATELE T lymphs 25 % not estab. Not Available [facility] ([facility]) [address] [place], [address], 03/11/2022 11:09:57 03/10/20 22 03/11/2022 CBC WITH DIFFE RENTI AL/PL ATELE T monocytes 7 % not estab. Not Available [facility] ([facility]) [address] [place], [address], 03/11/2022 11:09:57 03/10/20 22 03/11/2022 CBC WITH DIFFE RENTI AL/PL ATELE T eos 1 % not estab. Not Available [facility] ([facility]) [address] [facility], [place], [address], 03/11/2022 11:09:57 03/10/20 22 03/11/2022 CBC WITH DIFFE RENTI AL/PL ATELE T basos 1 % not estab. Not Available [facility] ([facility]) [address] [place], [address], 03/11/2022 11:09:57 03/10/20 22 03/11/2022 CBC WITH DIFFE RENTI AL/PL ATELE T immature cells CASTING COORDINATOR Not Available [facility] ([facility]) [address] [place], [address], 03/11/2022 11:09:57 03/10/20 22 03/11/2022 CBC WITH DIFFE RENTI AL/PL ATELE T neutrophils (absolute) 4.6 x10e3 /uL 1.4-7. 0 Not Available [facility] ([facility]) [address] [place], [address], 03/11/2022 11:09:57 03/10/20 22 03/11/2022 CBC WITH DIFFE RENTI AL/PL ATELE T lymphs (absolute) 1.8 x10e3 /uL 0.7-3. 1 Not Available [facility] ([facility]) [address] [place], [address], 03/11/2022 11:09:57 03/10/20 22 03/11/2022 CBC WITH DIFFE RENTI AL/PL ATELE T monocytes(ab solute) 0.5 x10e3 /uL 0.1-0. 9 Not Available [facility] ([facility]) [address] [place], [address], 03/11/2022 11:09:57 03/10/20 22 03/11/2022 CBC WITH DIFFE RENTI AL/PL ATELE T eos (absolute) 0.1 x10e3 /uL 0.0-0. 4 Not Available [facility] ([facility]) [address] [facility], [place], [address], 03/11/2022 11:09:57 03/10/20 22 03/11/2022 CBC WITH DIFFE RENTI AL/PL ATELE T baso (absolute) 0.1 x10e3 /uL 0.0-0. 2 Not Available [facility] ([facility]) [address] [facility], [place], [address], 03/11/2022 11:09:57 03/10/20 22 03/11/2022 CBC WITH DIFFE RENTI AL/PL ATELE T immature granulocytes 0 % not estab. Not Available [facility] ([facility]) [address] [facility], [place], [address], 03/11/2022 11:09:57 03/10/20 22 03/11/2022 CBC WITH DIFFE RENTI AL/PL ATELE T immature grans (abs) 0.0 x10e3 /uL 0.0-0. 1 Not Available [facility] ([facility]) [address] [facility], [place], [address], 03/11/2022 11:09:57 03/10/20 22 03/11/2022 CBC WITH DIFFE RENTI AL/PL ATELE T NRBC CASTING COORDINATOR Not Available [facility] ([facility]) [address] [facility], [place], [address], 03/11/2022 11:09:57 03/10/20 22 03/11/2022 CBC WITH DIFFE RENTI AL/PL ATELE T hematology comments: CASTING COORDINATOR Not Available [facility] ([facility]) [address] [facility], [place], [address], 03/11/2022 11:09:57 03/10/20 22 03/11/2022 COMP. METAB OLIC PANEL (14) glucose 111 mg/dL 65-99 above high normal Not Available [facility] ([facility]) [address] [place], [address], 03/11/2022 11:09:58 03/10/20 22 03/11/2022 COMP. METAB OLIC PANEL (14) BUN 8 mg/dL 8-27 Not Available [facility] ([facility]) [address] [place], [address], 03/11/2022 11:09:58 03/10/20 22 03/11/2022 COMP. METAB OLIC PANEL (14) creatinine 0.74 mg/dL 0.76-1 .27 below low normal Not Available [facility] ([facility]) [address] [place], [address], 03/11/2022 11:09:58 03/10/20 22 03/11/2022 COMP. METAB OLIC PANEL (14) eGFR 102 mL/mi n/1.7 3 >59 Not Available [facility] ([facility]) [address] [place], [address], 03/11/2022 11:09:58 03/10/20 22 03/11/2022 COMP. METAB OLIC PANEL (14) BUN/creatini ne ratio 11 -24 Not Available [facility] ([facility]) [address] [place], [address], 03/11/2022 11:09:58 03/10/20 22 03/11/2022 COMP. METAB OLIC PANEL (14) sodium 140 mmol/ L 134-14 4 Not Available [facility] ([facility]) [address] [place], [address], 03/11/2022 11:09:58 03/10/20 22 03/11/2022 COMP. METAB OLIC PANEL (14) potassium 4.2 mmol/ L 3.5-5. 2 Not Available [facility] ([facility]) [address] [facility] [place], [address], 03/11/2022 11:09:58 03/10/20 22 03/11/2022 COMP. METAB OLIC PANEL (14) chloride 100 mmol/ L 96-106 Not Available [facility] ([facility]) [address] [facility] [place], [address], 03/11/2022 11:09:58 03/10/20 22 03/11/2022 COMP. METAB OLIC PANEL (14) carbon dioxide, total 27 mmol/ L 20-29 Not Available [facility] ([facility]) [address] [facility] [place], [address], 03/11/2022 11:09:58 03/10/20 22 03/11/2022 COMP. METAB OLIC PANEL (14) calcium 9.7 mg/dL 8.6-10 .2 Not Available [facility] ([facility]) [address] [facility] [place], [address], 03/11/2022 11:09:58 03/10/20 22 03/11/2022 COMP. METAB OLIC PANEL (14) protein, total 7.5 g/dL 6.0-8. 5 Not Available [facility] ([facility]) [address] [facility] [place], [address], 03/11/2022 11:09:58 03/10/20 22 03/11/2022 COMP. METAB OLIC PANEL (14) albumin 4.3 g/dL 3.8-4. 8 Not Available [facility] ([facility]) [address] [facility] [place], [address], 03/11/2022 11:09:58 03/10/20 22 03/11/2022 COMP. METAB OLIC PANEL (14) globulin, total 3.2 g/dL 1.5-4. 5 Not Available [facility] ([facility]) [address] [facility] [place], [address], 03/11/2022 11:09:58 03/10/20 22 03/11/2022 COMP. METAB OLIC PANEL (14) A/G ratio 1.3 1.2-2. 2 Not Available [facility] ([facility]) [address] [facility] [place], [address], 03/11/2022 11:09:58 03/10/20 22 03/11/2022 COMP. METAB OLIC PANEL (14) bilirubin, total 0.3 mg/dL 0.0-1. 2 Not Available [facility] ([facility]) [address] [facility] [place], [address], 03/11/2022 11:09:58 03/10/20 22 03/11/2022 COMP. METAB OLIC PANEL (14) alkaline phosphatase 99 IU/L 44-121 Not Available [facility] ([facility]) [address] [facility] [place], [address], 03/11/2022 11:09:58 03/10/20 22 03/11/2022 COMP. METAB OLIC PANEL (14) AST (SGOT) 28 IU/L 0-40 Not Available [facility] ([facility]) [address] [facility] [place], [address], 03/11/2022 11:09:58 03/10/20 22 03/11/2022 COMP. METAB OLIC PANEL (14) ALT (SGPT) 18 IU/L 0-44 Not Available [facility] ([facility]) [address] [facility] [place], [address], 03/11/2022 11:09:58 03/10/20 22 03/11/2022 LIPID PANEL cholesterol, total 137 mg/dL 100-19 9 Not Available [facility] ([facility]) [address] [place], [address], 03/11/2022 11:09:59 03/10/20 22 03/11/2022 LIPID PANEL triglyceride s 54 mg/dL 0-149 Not Available [facility] ([facility]) [address] [facility] [place], [address], 03/11/2022 11:09:59 03/10/20 22 03/11/2022 LIPID PANEL HDL cholesterol 63 mg/dL >39 Not Available [facility] ([facility]) [address] [facility] [place], [address], 03/11/2022 11:09:59 03/10/20 22 03/11/2022 LIPID PANEL VLDL cholesterol andreina 12 mg/dL 5-40 Not Available [facility] ([facility]) [address] [facility] [place], [address], 03/11/2022 11:09:59 03/10/20 22 03/11/2022 LIPID PANEL LDL chol calc ([facility]) 62 mg/dL 0-99 Not Available [facility] ([facility]) [address] [facility] [place], [address], 03/11/2022 11:09:59 03/10/20 22 03/11/2022 LIPID PANEL comment: CASTING COORDINATOR Not Available [facility] ([facility]) [address] [facility] [place], [address], 03/11/2022 11:09:59 03/10/20 22 03/11/2022 ALBUM IN/CR EATIN INE RATIO ,URIN E creatinine, urine 160.0 mg/dL not estab. Not Available [facility] ([facility]) [address] [facility] [place], [address], 03/11/2022 11:09:59 03/10/20 22 03/11/2022 ALBUM IN/CR EATIN INE RATIO ,URIN E albumin, urine 11.0 ug/mL not estab. Not Available [facility] ([facility]) [address] [facility] [place], [address], 03/11/2022 11:09:59 03/10/20 22 03/11/2022 ALBUM IN/CR EATIN INE RATIO ,URIN E alb/creat ratio 7 mg/g_ creat 0-29 Rebeca l: 0 - 29 Moder ately incre ased: 30 - 300 Sever marie incre ased: >300 Not Available [facility] ([facility]) [address] [facility], [place], [address], 03/11/2022 11:09:59 03/10/20 22 03/11/2022 VITAM IN B12 AND FOLAT E vitamin B12 698 pg/mL 232-12 45 Not Available [facility] ([facility]) [address] [facility] [place], [address], 03/11/2022 11:10:00 03/10/20 22 03/11/2022 VITAM IN B12 AND FOLAT E folate (folic acid), serum 7.6 NG/mL >3.0 A serum folat e queenie ntrat ion of less than 3.1 ng/mL is consi dered to repre sent clini andreina defic iency . Not Available [facility] ([facility]) [address] [facility], [place], [address], 03/11/2022 11:10:00 03/10/20 22 03/11/2022 HEMOG LOBIN A1C hemoglobin A1C 6.1 % 4.8-5. 6 above high normal Predi abete s: 5.7 - 6.4 Diabe mandie: >6.4 Glyce tarah contr ol for adult s with diabe mandie: <7.0 Not Available [facility] ([facility]) [address] [facility], [place], [address], 03/11/2022 11:10:00 03/10/20 22 03/11/2022 VITAM IN D, 25-HY DROXY vitamin D, 25-hydroxy 39.0 NG/mL 30.0-1 00.0 Vitam in D defic iency has been defin ed by the Insti tute of Medic ine and an Endoc rine Socie ty pract ice guide line as a level of serum 25-OH vitam in D less than 20 ng/mL (1,2) . The Endoc rine Socie ty went on to furth er defin e vitam in D insuf ficie ncy as a level betwe en 21 and 29 ng/mL (2). 1. IOM (Inst itute of Medic ine). 2010. Dieta ry refer ence intak es for calci um and D. Jack [place]: The [facility] Press . 2. Maria E puckett MF, Cori corbett NC, Cole off-F errar i REICH, et al. Evalu ation , treat ment, and preve ntion of vitam in D defic iency : an Endoc rine Socie ty clini andreina pract ice guide line. JCEM. 2010; 96(7) :1911 -30. Not Available [facility] ([facility]) [address] [facility], [place], [address], 03/11/2022 11:10:01 03/10/20 22 03/11/2022 TSH RFX ON ABNOR MAL TO FREE T4 TSH 2.160 uIU/m L 0.450- 4.500 Not Available [facility] ([facility]) [address] [facility], [place], [address], 03/11/2022 11:10:05 03/10/20 22 03/16/2022 COMPR EHENS THIAGO DRUG LAM SIS,U R summary report (summary) FINAL ===== ===== ===== ===== ===== ===== ===== ===== ===== ===== ===== ===== ===== === COMPR EHENS THIAGO DRUG LAM SIS,U R ===== ===== ===== ===== ===== ===== ===== ===== ===== ===== ===== ===== ===== === Test Resul t Flag Units Drug Prese nt Alcoh ol, Ethyl 0.175 g/dL Sourc es of ethyl alcoh ol inclu de alcoh olic bever ages or as a ferme ntati on produ ct of gluco se; gluco se is prese nt in this speci men. Inter pret resul t with cauti on, as the prese nce of ethyl alcoh ol is likel y due, at least in part, to ferme ntati on of gluco se. Carbo xy-TH C 18 ng/mg creat Carbo xy-TH C is a metab olite of tetra hydro canna binol (THC) . Sourc e of THC is most commo nly herba l marij uana or marij uana- based produ cts, but THC is also prese nt in a sched uled presc ripti on medic ation . Trace amoun ts of THC can be prese nt in hemp and canna bidio l (CBD) produ cts. This test is not inten ded to disti nguis h betwe en delta -9-te trahy droca nnabi nol, the predo minan t form of THC in most herba l or marij uana- based produ cts, and delta -8-te trahy droca nnabi nol. Gabap entin PRESE NT ===== ===== ===== ===== ===== ===== ===== ===== ===== ===== ===== ===== ===== === Test Resul t Flag Units Ref Range Creat inine 165 mg/dL >=20 ===== ===== ===== ===== ===== ===== ===== ===== ===== ===== ===== ===== ===== === For clini andreina consu ltati on, pleas e call . ===== ===== ===== ===== ===== ===== ===== ===== ===== ===== ===== ===== ===== === Not Available [facility] [address], [place], [address], 03/16/2022 17:07:25 03/10/20 22 03/16/2022 COMPR EHENS THIAGO DRUG LAM SIS,U R pdf . Not Available [facility] [address], [place], [address], 03/16/2022 17:07:25 04/22/20 22 04/22/2022 SARS- CoV-2 (COVI D-19) RNA [Pres ence] in Nasop haryn x by EDIE with probe detec tion sars-cov-2 (covid-19) RNA [presence] in nasopharynx by EDIE with probe detection NOT DETECT ED SARS- CoV-2 NOT DETEC XANDER REBECA L:NOT DETEC XANDER 22884 -8 LOINC Not Available Not Available 11/07/2024 11:23:09 04/22/20 22 04/22/2022 SARS- CoV-2 (COVI D-19) RNA [Pres ence] in Nasop haryn x by EDIE with probe detec tion notify ifc? YES NOTIF Y IFC? YES Not Available Not Available 11/07/2024 11:23:09 07/22/20 22 07/23/2022 BASIC METAB OLIC PANEL (8) glucose 132 mg/dL 70-99 above high normal Not Available [facility] ([facility]) [address] [facility], [place], [address], 07/23/2022 06:08:21 07/22/20 22 07/23/2022 BASIC METAB OLIC PANEL (8) BUN 15 mg/dL 8-27 Not Available [facility] ([facility]) [address] [facility], [place], [address], 07/23/2022 06:08:21 07/22/20 22 07/23/2022 BASIC METAB OLIC PANEL (8) creatinine 0.79 mg/dL 0.76-1 .27 Not Available [facility] ([facility]) [address] [place], [address], 07/23/2022 06:08:21 07/22/20 22 07/23/2022 BASIC METAB OLIC PANEL (8) eGFR 100 mL/mi n/1.7 3 >59 Not Available [facility] ([facility]) [address] [place], [address], 07/23/2022 06:08:21 07/22/20 22 07/23/2022 BASIC METAB OLIC PANEL (8) BUN/creatini ne ratio 19 -24 Not Available [facility] ([facility]) [address] [place], [address], 07/23/2022 06:08:21 07/22/20 22 07/23/2022 BASIC METAB OLIC PANEL (8) sodium 141 mmol/ L 134-14 4 Not Available [facility] ([facility]) [address] [place], [address], 07/23/2022 06:08:21 07/22/20 22 07/23/2022 BASIC METAB OLIC PANEL (8) potassium 4.6 mmol/ L 3.5-5. 2 Not Available [facility] ([facility]) [address] [place], [address], 07/23/2022 06:08:21 07/22/20 22 07/23/2022 BASIC METAB OLIC PANEL (8) chloride 101 mmol/ L 96-106 Not Available [facility] ([facility]) [address] [place], [address], 07/23/2022 06:08:21 07/22/20 22 07/23/2022 BASIC METAB OLIC PANEL (8) carbon dioxide, total 29 mmol/ L 20-29 Not Available [facility] ([facility]) [address] [place], [address], 07/23/2022 06:08:21 07/22/20 22 07/23/2022 BASIC METAB OLIC PANEL (8) calcium 8.9 mg/dL 8.6-10 .2 Not Available [facility] ([facility]) [address] [place], [address], 07/23/2022 06:08:21 07/22/20 22 07/23/2022 HEMOG LOBIN A1C hemoglobin A1C 6.0 % 4.8-5. 6 above high normal Predi abete s: 5.7 - 6.4 Diabe mandie: >6.4 Glyce tarah contr ol for adult s with diabe mandie: <7.0 Not Available [facility] ([facility]) [address] [place], [address], 07/23/2022 06:08:22 07/22/20 22 07/23/2022 CBC WITH DIFFE RENTI AL/PL ATELE T WBC 6.8 x10e3 /uL 3.4-10 .8 Not Available [facility] ([facility]) [address] [place], [address], 07/23/2022 06:08:23 07/22/20 22 07/23/2022 CBC WITH DIFFE RENTI AL/PL ATELE T RBC 4.36 x10e6 /uL 4.14-5 .80 Not Available [facility] ([facility]) [address] [place], [address], 07/23/2022 06:08:23 07/22/20 22 07/23/2022 CBC WITH DIFFE RENTI AL/PL ATELE T hemoglobin 12.0 g/dL 13.0-1 7.7 below low normal Not Available [facility] ([facility]) [address] [place], [address], 07/23/2022 06:08:23 07/22/20 22 07/23/2022 CBC WITH DIFFE RENTI AL/PL ATELE T hematocrit 37.2 % 37.5-5 1.0 below low normal Not Available [facility] ([facility]) [address] [place], [address], 07/23/2022 06:08:23 07/22/20 22 07/23/2022 CBC WITH DIFFE RENTI AL/PL ATELE T MCV 85 fL 79-97 Not Available [facility] ([facility]) [address] [place], [address], 07/23/2022 06:08:23 07/22/20 22 07/23/2022 CBC WITH DIFFE RENTI AL/PL ATELE T MCH 27.5 pg 26.6-3 3.0 Not Available [facility] ([facility]) [address] [facility], [place], [address], 07/23/2022 06:08:23 07/22/20 22 07/23/2022 CBC WITH DIFFE RENTI AL/PL ATELE T MCHC 32.3 g/dL 31.5-3 5.7 Not Available [facility] ([facility]) [address] [place], [address], 07/23/2022 06:08:23 07/22/20 22 07/23/2022 CBC WITH DIFFE RENTI AL/PL ATELE T RDW 15.6 % 11.6-1 5.4 above high normal Not Available [facility] ([facility]) [address] [place], [address], 07/23/2022 06:08:23 07/22/20 22 07/23/2022 CBC WITH DIFFE RENTI AL/PL ATELE T platelets 420 x10e3 /uL 150-45 0 Not Available [facility] ([facility]) [address] [place], [address], 07/23/2022 06:08:23 07/22/20 22 07/23/2022 CBC WITH DIFFE RENTI AL/PL ATELE T neutrophils 58 % notest ab. Not Available [facility] ([facility]) [address] [facility], [place], [address], 07/23/2022 06:08:23 07/22/20 22 07/23/2022 CBC WITH DIFFE RENTI AL/PL ATELE T lymphs 27 % notest ab. Not Available [facility] ([facility]) [address] [facility], [place], [address], 07/23/2022 06:08:23 07/22/20 22 07/23/2022 CBC WITH DIFFE RENTI AL/PL ATELE T monocytes 12 % notest ab. Not Available [facility] ([facility]) [address] [facility], [place], [address], 07/23/2022 06:08:23 07/22/20 22 07/23/2022 CBC WITH DIFFE RENTI AL/PL ATELE T eos 2 % notest ab. Not Available [facility] ([facility]) [address] [facility], [place], [address], 07/23/2022 06:08:23 07/22/20 22 07/23/2022 CBC WITH DIFFE RENTI AL/PL ATELE T basos 1 % notest ab. Not Available [facility] ([facility]) [address] [facility], [place], [address], 07/23/2022 06:08:23 07/22/20 22 07/23/2022 CBC WITH DIFFE RENTI AL/PL ATELE T neutrophils (absolute) 4.0 x10e3 /uL 1.4-7. 0 Not Available [facility] ([facility]) [address] [facility], [place], [address], 07/23/2022 06:08:23 07/22/20 22 07/23/2022 CBC WITH DIFFE RENTI AL/PL ATELE T lymphs (absolute) 1.8 x10e3 /uL 0.7-3. 1 Not Available [facility] ([facility]) [address] [place], [address], 07/23/2022 06:08:23 07/22/20 22 07/23/2022 CBC WITH DIFFE RENTI AL/PL ATELE T monocytes(ab solute) 0.8 x10e3 /uL 0.1-0. 9 Not Available [facility] ([facility]) [address] [place], [address], 07/23/2022 06:08:23 07/22/20 22 07/23/2022 CBC WITH DIFFE RENTI AL/PL ATELE T eos (absolute) 0.1 x10e3 /uL 0.0-0. 4 Not Available [facility] ([facility]) [address] [place], [address], 07/23/2022 06:08:23 07/22/20 22 07/23/2022 CBC WITH DIFFE RENTI AL/PL ATELE T baso (absolute) 0.1 x10e3 /uL 0.0-0. 2 Not Available [facility] ([facility]) [address] [place], [address], 07/23/2022 06:08:23 07/22/20 22 07/23/2022 CBC WITH DIFFE RENTI AL/PL ATELE T immature granulocytes 0 % notest ab. Not Available [facility] ([facility]) [address] [place], [address], 07/23/2022 06:08:23 07/22/20 22 07/23/2022 CBC WITH DIFFE RENTI AL/PL ATELE T immature grans (abs) 0.0 x10e3 /uL 0.0-0. 1 Not Available [facility] ([facility]) [address] [place], [address], 07/23/2022 06:08:23 09/22/19 23 09/23/2022 BASIC METAB OLIC PANEL (8) glucose 145 mg/dL 70-99 above high normal Not Available [facility] ([facility]) [address] [place], [address], 09/23/2022 07:09:41 09/22/19 23 09/23/2022 BASIC METAB OLIC PANEL (8) BUN 8 mg/dL 8-27 Not Available [facility] ([facility]) [address] [place], [address], 09/23/2022 07:09:41 09/22/19 23 09/23/2022 BASIC METAB OLIC PANEL (8) creatinine 0.82 mg/dL 0.76-1 .27 Not Available [facility] ([facility]) [address] [place], [address], 09/23/2022 07:09:41 09/22/19 23 09/23/2022 BASIC METAB OLIC PANEL (8) eGFR 99 mL/mi n/1.7 3 >59 Not Available [facility] ([facility]) [address] [place], [address], 09/23/2022 07:09:41 09/22/19 23 09/23/2022 BASIC METAB OLIC PANEL (8) BUN/creatini ne ratio 10 10-24 Not Available [facility] ([facility]) [address] [place], [address], 09/23/2022 07:09:41 09/22/19 23 09/23/2022 BASIC METAB OLIC PANEL (8) sodium 141 mmol/ L 134-14 4 Not Available [facility] ([facility]) [address] [place], [address], 09/23/2022 07:09:41 09/22/19 23 09/23/2022 BASIC METAB OLIC PANEL (8) potassium 4.0 mmol/ L 3.5-5. 2 Not Available [facility] ([facility]) [address] [place], [address], 09/23/2022 07:09:41 09/22/19 23 09/23/2022 BASIC METAB OLIC PANEL (8) chloride 99 mmol/ L 96-106 Not Available [facility] ([facility]) [address] [place], [address], 09/23/2022 07:09:41 09/22/19 23 09/23/2022 BASIC METAB OLIC PANEL (8) carbon dioxide, total 27 mmol/ L 20-29 Not Available [facility] ([facility]) [address] [place], [address], 09/23/2022 07:09:41 09/22/19 23 09/23/2022 BASIC METAB OLIC PANEL (8) calcium 9.1 mg/dL 8.6-10 .2 Not Available [facility] ([facility]) [address] [place], [address], 09/23/2022 07:09:41 09/22/19 23 09/23/2022 HEMOG LOBIN A1C hemoglobin A1C 6.5 % 4.8-5. 6 above high normal Predi abete s: 5.7 - 6.4 Diabe mandie: >6.4 Glyce tarah contr ol for adult s with diabe mandie: <7.0 Not Available [facility] ([facility]) [address] [place], [address], 09/23/2022 07:09:41 09/22/19 23 09/23/2022 CBC WITH DIFFE RENTI AL/PL ATELE T WBC 11.3 x10e3 /uL 3.4-10 .8 above high normal Not Available [facility] ([facility]) [address] [place], [address], 09/23/2022 07:09:42 09/22/19 23 09/23/2022 CBC WITH DIFFE RENTI AL/PL ATELE T RBC 4.68 x10e6 /uL 4.14-5 .80 Not Available [facility] ([facility]) [address] [place], [address], 09/23/2022 07:09:42 09/22/19 23 09/23/2022 CBC WITH DIFFE RENTI AL/PL ATELE T hemoglobin 12.3 g/dL 13.0-1 7.7 below low normal Not Available [facility] ([facility]) [address] [place], [address], 09/23/2022 07:09:42 09/22/19 23 09/23/2022 CBC WITH DIFFE RENTI AL/PL ATELE T hematocrit 37.6 % 37.5-5 1.0 Not Available [facility] ([facility]) [address] [place], [address], 09/23/2022 07:09:42 09/22/19 23 09/23/2022 CBC WITH DIFFE RENTI AL/PL ATELE T MCV 80 fL 79-97 Not Available [facility] ([facility]) [address] [place], [address], 09/23/2022 07:09:42 09/22/19 23 09/23/2022 CBC WITH DIFFE RENTI AL/PL ATELE T MCH 26.3 pg 26.6-3 3.0 below low normal Not Available [facility] ([facility]) [address] [place], [address], 09/23/2022 07:09:42 09/22/19 23 09/23/2022 CBC WITH DIFFE RENTI AL/PL ATELE T MCHC 32.7 g/dL 31.5-3 5.7 Not Available [facility] ([facility]) [address] [place], [address], 09/23/2022 07:09:42 09/22/19 23 09/23/2022 CBC WITH DIFFE RENTI AL/PL ATELE T RDW 16.2 % 11.6-1 5.4 above high normal Not Available [facility] ([facility]) [address] [facility], [place], [address], 09/23/2022 07:09:42 09/22/19 23 09/23/2022 CBC WITH DIFFE RENTI AL/PL ATELE T platelets 400 x10e3 /uL 150-45 0 Not Available [facility] ([facility]) [address] [facility], [place], [address], 09/23/2022 07:09:42 09/22/19 23 09/23/2022 CBC WITH DIFFE RENTI AL/PL ATELE T neutrophils 77 % notest ab. Not Available [facility] ([facility]) [address] [facility], [place], [address], 09/23/2022 07:09:42 09/22/19 23 09/23/2022 CBC WITH DIFFE RENTI AL/PL ATELE T lymphs 15 % notest ab. Not Available [facility] ([facility]) [address] [facility], [place], [address], 09/23/2022 07:09:42 09/22/19 23 09/23/2022 CBC WITH DIFFE RENTI AL/PL ATELE T monocytes 8 % notest ab. Not Available [facility] ([facility]) [address] [facility], [place], [address], 09/23/2022 07:09:42 09/22/19 23 09/23/2022 CBC WITH DIFFE RENTI AL/PL ATELE T eos 0 % notest ab. Not Available [facility] ([facility]) [address] [facility], [place], [address], 09/23/2022 07:09:42 09/22/19 23 09/23/2022 CBC WITH DIFFE RENTI AL/PL ATELE T basos 0 % notest ab. Not Available [facility] ([facility]) [address] [facility], [place], [address], 09/23/2022 07:09:42 09/22/19 23 09/23/2022 CBC WITH DIFFE RENTI AL/PL ATELE T neutrophils (absolute) 8.6 x10e3 /uL 1.4-7. 0 above high normal Not Available [facility] ([facility]) [address] [facility], [place], [address], 09/23/2022 07:09:42 09/22/19 23 09/23/2022 CBC WITH DIFFE RENTI AL/PL ATELE T lymphs (absolute) 1.7 x10e3 /uL 0.7-3. 1 Not Available [facility] ([facility]) [address] [facility], [place], [address], 09/23/2022 07:09:42 09/22/19 23 09/23/2022 CBC WITH DIFFE RENTI AL/PL ATELE T monocytes(ab solute) 0.9 x10e3 /uL 0.1-0. 9 Not Available [facility] ([facility]) [address] [facility], [place], [address], 09/23/2022 07:09:42 09/22/19 23 09/23/2022 CBC WITH DIFFE RENTI AL/PL ATELE T eos (absolute) 0.0 x10e3 /uL 0.0-0. 4 Not Available [facility] ([facility]) [address] [facility], [place], [address], 09/23/2022 07:09:42 09/22/19 23 09/23/2022 CBC WITH DIFFE RENTI AL/PL ATELE T baso (absolute) 0.0 x10e3 /uL 0.0-0. 2 Not Available [facility] ([facility]) [address] [place], [address], 09/23/2022 07:09:42 09/22/19 23 09/23/2022 CBC WITH DIFFE RENTI AL/PL ATELE T immature granulocytes 0 % notest ab. Not Available [facility] ([facility]) [address] [facility], [place], [address], 09/23/2022 07:09:42 09/22/19 23 09/23/2022 CBC WITH DIFFE RENTI AL/PL ATELE T immature grans (abs) 0.0 x10e3 /uL 0.0-0. 1 Not Available [facility] ([facility]) [address] [facility], [place], [address], 09/23/2022 07:09:42 02/13/20 24 02/13/2024 Drugs ident ified in Urine by Scree n metho d amphetamines (amp) negati ve Amphe tamin es (AMP) Not Available Not Available 11/07/2024 11:23:07 02/13/20 24 02/13/2024 Drugs ident ified in Urine by Scree n metho d barbiturates (bar) negati ve Ninoska turat es (BAR) Not Available Not Available 11/07/2024 11:23:07 02/13/20 24 02/13/2024 Drugs ident ified in Urine by Scree n metho d benzodiazepi aisha (bzo) negati ve Benzo diaze pines (BZO) Not Available Not Available 11/07/2024 11:23:07 02/13/20 24 02/13/2024 Drugs ident ified in Urine by Scree n metho d cocaine (afsaneh) negati ve Cocai ne (AFSANEH) Not Available Not Available 11/07/2024 11:23:07 02/13/20 24 02/13/2024 Drugs ident ified in Urine by Scree n metho d ecstasy (MDMA) negati ve Ecsta sy (MDMA ) Not Available Not Available 11/07/2024 11:23:07 02/13/20 24 02/13/2024 Drugs ident ified in Urine by Scree n metho d marijuana (THC) positi ve Marij uana (THC) Not Available Not Available 11/07/2024 11:23:07 02/13/20 24 02/13/2024 Drugs ident ified in Urine by Scree n metho d methadone (mtd) negati ve Metha done (MTD) Not Available Not Available 11/07/2024 11:23:07 02/13/20 24 02/13/2024 Drugs ident ified in Urine by Scree n metho d methamphetam ine (mamp/met) negati ve Metha mphet amine (mAMP /MET) Not Available Not Available 11/07/2024 11:23:07 02/13/20 24 02/13/2024 Drugs ident ified in Urine by Scree n metho d morphine (opi) negati ve Morph ine (OPI) Not Available Not Available 11/07/2024 11:23:07 02/13/20 24 02/13/2024 Drugs ident ified in Urine by Scree n metho d oxycodine (oxy) negati ve Oxyco dine (OXY) Not Available Not Available 11/07/2024 11:23:07 02/13/20 24 02/13/2024 Drugs ident ified in Urine by Scree n metho d tricyclic antidepressa nts (tca) negati ve Tricy clic Antid epres sants (TCA) Not Available Not Available 11/07/2024 11:23:07 06/17/20 24 06/17/2024 Proth rombi n time (PT) prothrombin time (PT) 11.3 text: 10.1 - 12.9 sec PROTI ME 11.3 10.1 - 12.9 SEC 06/17 3:30 PM CDT [facility] Not Available Not Available 11/07/2024 11:22:40 06/17/20 24 06/17/2024 Proth rombi n time (PT) INR in platelet poor plasma by coagulation assay 1 low: 0.9hig h: 1.1 INR 1.0 0.9 - 1.1 06/17 3:30 PM CDT [facility] Not Available Not Available 11/07/2024 11:22:40 06/17/20 24 06/17/2024 Karthikeyan ol [Pres ence] in Serum or Plasm a ethanol [presence] in serum or plasma text: <0.003 g/dL ALCOH OL S/P/B <0.00 3 <0.00 3 G/DL 06/17 3:15 PM CDT [facility] Not Available Not Available 11/07/2024 11:22:39 06/19/20 24 06/19/2024 Drugs of abuse 5 panel - Urine by Scree n metho d cannabinoids [presence] in urine POSITI VE text: negati ve abnormal CANNA BINOI DS SCREE N (U) POSIT THIAGO (A) NEGAT THIAGO 06/19 5:22 PM CDT [facility] Not Available Not Available 11/07/2024 11:22:40 06/19/20 24 06/19/2024 Drugs of abuse 5 panel - Urine by Scree n metho d phencyclidin e [presence] in urine NEGATI VE text: negati ve PHENC YCLID INE PCP (U) NEGAT THIAGO NEGAT THIAGO 06/19 5:22 PM CDT [facility] Not Available Not Available 11/07/2024 11:22:40 06/19/20 24 06/19/2024 Drugs of abuse 5 panel - Urine by Scree n metho d cocaine [presence] in urine NEGATI VE text: negati ve COCAI NE METAB OLITE S (U) NEGAT THIAGO NEGAT THIAGO 06/19 5:22 PM [facility] Not Available Not Available 11/07/2024 11:22:40 06/19/20 24 06/19/2024 Drugs of abuse 5 panel - Urine by Scree n metho d methamphetam ine [presence] in urine NEGATI VE text: negati ve METHA MPHET AMINE (U) NEGAT THIAGO NEGAT THIAGO 06/19 5:22 PM CDT [facility] Not Available Not Available 11/07/2024 11:22:40 06/19/20 24 06/19/2024 Drugs of abuse 5 panel - Urine by Scree n metho d opiates [presence] in urine NEGATI VE text: negati ve OPIAT E SCREE N (U) NEGAT THIAGO NEGAT THIAGO 06/19 5:22 PM CDT [facility] Not Available Not Available 11/07/2024 11:22:40 06/19/20 24 06/19/2024 Drugs of abuse 5 panel - Urine by Scree n metho d amphetamines [presence] in urine NEGATI VE text: negati ve AMPHE TAMIN E (U) NEGAT THIAGO NEGAT THIAGO 06/19 5:22 PM CDT [facility] Not Available Not Available 11/07/2024 11:22:40 06/19/20 24 06/19/2024 Drugs of abuse 5 panel - Urine by Scree n metho d benzodiazepi aisha [presence] in urine POSITI VE text: negati ve abnormal BENZO DIAZE PINES SCREE N (U) POSIT THIAGO (A) NEGAT THIAGO 06/19 5:22 PM CDT [facility] Not Available Not Available 11/07/2024 11:22:40 06/19/20 24 06/19/2024 Drugs of abuse 5 panel - Urine by Scree n metho d tricyclic antidepressa nts [presence] in urine POSITI VE text: negati ve abnormal [facility] ANTID EPRES KAZ SCREE N (U) POSIT THIAGO (A) NEGAT THIAGO 06/19 5:22 PM CDT [facility] Not Available Not Available 11/07/2024 11:22:40 06/19/20 24 06/19/2024 Drugs of abuse 5 panel - Urine by Scree n metho d methadone [presence] in urine NEGATI VE text: negati ve METHA DONE (U) NEGAT THIAGO NEGAT THIAGO 06/19 5:22 PM CDT [facility] Not Available Not Available 11/07/2024 11:22:40 06/19/20 24 06/19/2024 Drugs of abuse 5 panel - Urine by Scree n metho d barbiturate screen present [identifier] in urine NEGATI VE text: negati ve NINOSKA TURAT ES SCREE N (U) NEGAT THIAGO NEGAT THIAGO 06/19 5:22 PM CDT [facility] Not Available Not Available 11/07/2024 11:22:40 06/19/20 24 06/19/2024 Drugs of abuse 5 panel - Urine by Scree n metho d oxycodone [presence] in urine NEGATI VE text: negati ve OXYCO DONE SCREE N (U) NEGAT THIAGO NEGAT THIAGO 06/19 5:22 PM CDT [facility] Not Available Not Available 11/07/2024 11:22:40 06/19/2006/19/2024 Drugs of abuse 5 panel - Urine by Scree n metho d interpretati on and review of laboratory results Abnorm al Not Available Not Available 11:22:40 06/19/20 24 06/19/2024 Urina lysis macro (dips tick) panel - Urine collection method - specimen URINE CLEAN CATCH SPECI MEN TYPE URINE CLEAN CATCH 06/19 5:05 PM CDT [facility] Not Available Not Available 11/07/2024 11:22:40 06/19/20 24 06/19/2024 Urina lysis macro (dips tick) panel - Urine color of urine YELLOW COLOR (U) YELLO W 06/19 5:16 PM CDT [facility] [facility] Not Available Not Available 11/07/2024 11:22:40 06/19/20 24 06/19/2024 Urina lysis macro (dips tick) panel - Urine clarity of urine SLIGHT LY CLOUDY TRANS PAREN CY SLIGH TLY CLOUD Y 06/19 5:16 PM CDT [facility] Not Available Not Available 11/07/2024 11:22:40 06/19/20 24 06/19/2024 Urina lysis macro (dips tick) panel - Urine specific gravity of urine 1.02 low: 1.01hi gh: 1.025 SPECI FIC GRAVI TY (U) 1.020 1.010 - 1.025 06/19 5:16 PM CDT [facility] Not Available Not Available 11/07/2024 11:22:40 06/19/20 24 06/19/2024 Urina lysis macro (dips tick) panel - Urine pH of urine 7 low: 5high: 8 U PH 7.0 5.0 - 8.0 06/19 5:16 PM CDT [facility] Not Available Not Available 11/07/2024 11:22:40 06/19/20 24 06/19/2024 Urina lysis macro (dips tick) panel - Urine leukocyte esterase [presence] in urine by test strip NEGATI VE text: negati ve LEUKO CYTES (U) NEGAT THIAGO NEGAT THIAGO 06/19 5:16 PM CDT [facility] Not Available Not Available 11/07/2024 11:22:40 06/19/20 24 06/19/2024 Urina lysis macro (dips tick) panel - Urine nitrite [presence] in urine by test strip NEGATI VE text: negati ve NITRI MANDIE NEGAT THIAGO NEGAT THIAGO 06/19 5:16 PM CDT [facility] Not Available Not Available 11/07/2024 11:22:40 06/19/20 24 06/19/2024 Urina lysis macro (dips tick) panel - Urine protein [presence] in urine by automated test strip NEGATI VE text: negati ve PROTE IN RANDO M (U) NEGAT THIAGO NEGAT THIAGO 06/19 5:16 PM CDT [facility] Not Available Not Available 11/07/2024 11:22:40 06/19/20 24 06/19/2024 Urina lysis macro (dips tick) panel - Urine glucose [presence] in urine by automated test strip NEGATI VE text: negati ve GLUCO SE (U) NEGAT THIAGO NEGAT THIAGO 06/19 5:16 PM CDT [facility] Not Available Not Available 11/07/2024 11:22:40 06/19/20 24 06/19/2024 Urina lysis macro (dips tick) panel - Urine ketones [presence] in urine by automated test strip NEGATI VE text: negati ve KETON ES MG/DL (U) NEGAT THIAGO NEGAT THIAGO 06/19 5:16 PM CDT [facility] Not Available Not Available 11/07/2024 11:22:40 06/19/20 24 06/19/2024 Urina lysis macro (dips tick) panel - Urine urobilinogen [units/volum e] in urine by test strip 1 text: 0.2 - 1.0 eu/dL UROBI LINOG EN 1.0 0.2 - 1.0 EU/DL 06/19 5:16 PM CDT [facility] Not Available Not Available 11/07/2024 11:22:40 06/19/20 24 06/19/2024 Urina lysis macro (dips tick) panel - Urine bilirubin.to nolvia [presence] in urine by automated test strip NEGATI VE text: negati ve BILIR UBIN (U) NEGAT THIAGO NEGAT THIAGO 06/19 5:16 PM CDT [facility] Not Available Not Available 11/07/2024 11:22:40 06/19/20 24 06/19/2024 Urina lysis macro (dips tick) panel - Urine erythrocytes [#/volume] in urine by automated test strip NEGATI VE text: negati ve BLOOD (U) NEGAT THIAGO NEGAT THIAGO 06/19 5:16 PM CDT [facility] Not Available Not Available 11/07/2024 11:22:40 10/16/06/19/2024 Gas panel - Venou s blood pH of venous blood 7.45 low: 7.32hi gh: 7.43 high PH VENOU S 7.45 (H) 7.32 - 7.43 06/19 3:27 PM CDT [facility] DUB [facility] Not Available Not Available 11/07/2024 11:22:40 06/19/20 24 06/19/2024 Gas panel - Venou s blood carbon dioxide [partial pressure] in venous blood 48 text: mmHg PCO2 VENOU S 48.0 MMHG 06/19 3:27 PM CDT [facility] ONEYDA [facility] Not Available Not Available 11/07/2024 11:22:40 06/19/2006/19/2024 Gas panel - Venou s blood oxygen [partial pressure] in venous blood 58 text: mm hg PO2 VENOU S 58.0 MM HG 06/19 3:27 PM CDT [facility] DUB [facility] Not Available Not Available 11/07/2024 11:22:40 06/19/2006/19/2024 Gas panel - Venou s blood carbon dioxide, total [moles/volum e] in venous blood 34.9 text: 22.0 - 26.0 mmol/L high TOTAL CO2 VENOU S 34.9 (H) 22.0 - 26.0 MMOL/ L 06/19 3:27 PM CDT [facility] Not Available Not Available 11/07/2024 11:22:40 06/19/20 24 06/19/2024 Gas panel - Venou s blood base excess in venous blood by calculation 8.1 text: mmol/L BASE EXCES S VENOU S 8.1 MMOL/ L 06/19 3:27 PM CDT [facility] [place] Not Available Not Available 11/07/2024 11:22:40 06/19/20 24 06/19/2024 Gas panel - Venou s blood oxygen saturation in venous blood 91 % O2 SAT VENOU S 91 % 06/19 3:27 PM CDT [facility] Not Available Not Available 11/07/2024 11:22:40 06/19/20 24 06/19/2024 Gas panel - Venou s blood bicarbonate [moles/volum e] in venous blood 33.4 text: 22.0 - 29.0 mmol/L high BICAR B VENOU S 33.4 (H) 22.0 - 29.0 MMOL/ L 06/19 3:27 PM CDT [facility] Not Available Not Available 11/07/2024 11:22:40 06/19/20 24 06/19/2024 Gas panel - Venou s blood service comment 0 O2 ADMIN VENOU S 0 06/19 3:22 PM CDT [facility] [place] [facility] Not Available Not Available 11/07/2024 11:22:40 06/19/20 24 06/19/2024 Gas panel - Venou s blood interpretati on and review of laboratory results Abnorm al Not Available Not Available 11:22:40 06/19/20 24 06/19/2024 Markos ia [Mole s/vol ume] in Plasm a ammonia [moles/volum e] in plasma 21 text: 11.0 - 32.0 umol/L MARKOS IA 21 11.0 - 32.0 UMOL/ L 06/19 3:39 PM CDT [facility] [place] [facility] Not Available Not Available 11/07/2024 11:22:39 06/19/20 24 06/19/2024 Compr ehens thiago metab olic 1999 panel - Serum or Plasm a sodium [moles/volum e] in serum or plasma 139 text: 136 - 145 mmol/L SODIU M S/P/B 139 136 - 145 MMOL/ L 06/19 11:48 AM CDT [facility] Not Available Not Available 11/07/2024 11:22:40 06/19/20 24 06/19/2024 Compr ehens thiago metab olic 1999 panel - Serum or Plasm a potassium [moles/volum e] in serum or plasma 4 text: 3.5 - 5.1 mmol/L POTAS SIUM S/P/B 4.0 3.5 - 5.1 MMOL/ L 06/19 11:48 AM CDT [facility] ALONSO ERD EDUARD[facility] Not Available Not Available 11/07/2024 11:22:40 06/19/20 24 06/19/2024 Compr ehens thiago metab olic 1999 panel - Serum or Plasm a chloride [moles/volum e] in serum or plasma 102 text: 98 - 107 mmol/L CHLOR ROXANNA S/P/B 102 98 - 107 MMOL/ L 06/19 11:48 AM CDT [facility] ERD [facility] Not Available Not Available 11/07/2024 11:22:40 06/19/2006/19/2024 Compr ehens thiago metab olic 1999 panel - Serum or Plasm a carbon dioxide, total [moles/volum e] in serum or plasma 30.8 text: 21.0 - 32.0 mmol/L CO2 30.8 21.0 - 32.0 MMOL/ L 06/19 11:48 AM CDT [facility] AL[facility] ERD [facility] Not Available Not Available 11/07/2024 11:22:40 06/19/2006/19/2024 Compr ehens thiago metab olic 1999 panel - Serum or Plasm a glucose [mass/volume ] in serum or plasma 129 text: 70 - 99 mg/dL high GLUCO SE 129 (H) 70 - 99 MG/DL 06/19 11:48 AM CDT [facility] AL[facility] ERD [facility] Not Available Not Available 11/07/2024 11:22:40 06/19/2006/19/2024 Compr ehens thiago metab olic 1999 panel - Serum or Plasm a urea nitrogen [mass/volume ] in serum or plasma 9 text: 7 - 18 mg/dL BUN 9 7 - 18 MG/DL 06/19 11:48 AM CDT [facility] ALON[facility] ERD [facility] Not Available Not Available 11/07/2024 11:22:40 06/19/20 24 06/19/2024 Compr ehens thiago metab olic 2000 panel - Serum or Plasm a creatinine [mass/volume ] in serum or plasma 0.8 text: 0.70 - 1.30 mg/dL CREAT ININE S/P/B 0.80 0.70 - 1.30 MG/DL 06/19 11:48 AM CDT [facility] EDUARD[facility] Not Available Not Available 11/07/2024 11:22:40 06/19/2006/19/2024 [facility] - Serum or Plasm a calcium [mass/volume ] in serum or plasma 8.2 text: 8.5 - 10.1 mg/dL low CALCI UM S/P/B 8.2 (L) 8.5 - 10.1 MG/DL 06/19 11:48 AM CDT [facility] Not Available Not Available 11/07/2024 11:22:40 06/19/2006/19/2024 [facility] panel - Serum or Plasm a bilirubin.to nolvia [mass/volume ] in serum or plasma 0.5 text: 0.2 - 1.0 mg/dL BILIR UBIN TOTAL S/P/B 0.5 0.2 - 1.0 MG/DL 06/19 11:48 AM CDT [facility] Not Available Not Available 11/07/2024 11:22:40 06/19/20 24 06/19/2024 [facility] panel - Serum or Plasm a alkaline phosphatase [enzymatic activity/vol ume] in serum or plasma 143 U/L low: 46U/Lh igh: 116U/L high ALKAL INE PHOSP HATAS E S/P/B 143 (H) 46 - 116 U/L 06/19 11:48 AM CDT [facility] Not Available Not Available 11/07/2024 11:22:40 06/19/20 24 06/19/2024 [facility] thiago metab olic 1999 panel - Serum or Plasm a aspartate aminotransfe rase [enzymatic activity/vol ume] in serum or plasma 31 U/L low: 15U/Lh igh: 37U/L AST 31 15 - 37 U/L 06/19 11:48 AM CDT [facility] CLARK [facility] Not Available Not Available 11/07/2024 11:22:40 06/19/20 24 06/19/2024 [facility] thiago metab olic 1999 panel - Serum or Plasm a alanine aminotransfe rase [enzymatic activity/vol ume] in serum or plasma 26 U/L low: 16U/Lh igh: 63U/L ALT 26 16 - 63 U/L 06/19 11:48 AM CDT [facility] CLARK [facility] Not Available Not Available 11/07/2024 11:22:40 06/19/20 24 06/19/2024 [facility] thiago metab olic 1999 panel - Serum or Plasm a protein [mass/volume ] in serum or plasma 6 text: 6.4 - 8.2 g/dL low TOTAL PROTE IN S/P/B 6.0 (L) 6.4 - 8.2 G/DL 06/19 11:48 AM CDT [facility] [place] [facility] Not Available Not Available 11/07/2024 11:22:40 06/19/20 24 06/19/2024 [facility] thiago metab olic 1999 panel - Serum or Plasm a albumin [mass/volume ] in serum or plasma 2.4 text: 3.4 - 5.0 g/dL low ALBUM IN S/P/B 2.4 (L) 3.4 - 5.0 G/DL 06/19 11:48 AM CDT [facility] CLARK [facility] Not Available Not Available 11/07/2024 11:22:40 06/19/20 24 06/19/2024 Compr [employer] thiago metab olic 1999 panel - Serum or Plasm a anion gap in serum or plasma 6.2 text: 5.0 - 15.0 mmol/L ANION GAP 6.2 5.0 - 15.0 MMOL/ L 06/19 11:48 AM CDT [facility] G[facility]IN DUB [facility] Not Available Not Available 11/07/2024 11:22:40 06/19/20 24 06/19/2024 Compr ehens thiago metab olic 2000 panel - Serum or Plasm a osmolality of serum or plasma by calculation 288 text: mOsm/k g OSMOL ALITY (CALC ) 288 MOSM/ KG 06/19 11:48 AM CDT [facility] [place] [facility] Not Available Not Available 11/07/2024 11:22:40 06/19/20 24 06/19/2024 Compr ehens thiago metab olic 2000 panel - Serum or Plasm a glomerular filtration rate/1.73 sq M.predicted [volume rate/area] in serum, plasma or blood by creatinine-b ased formula (CKD-epi 2020) text: >89 mL/min /1.73 M2 GFR ESTIM ATE >90 >89 ML/SC N/1.7 3 M2 06/19 11:48 AM CDT [facility] Not Available Not Available 11/07/2024 11:22:40 06/19/20 24 06/19/2024 Compr ehens thiago metab olic 2000 panel - Serum or Plasm a GFR notes GFR REFERE NCES: GFR NOTES GFR REFER ENCES : 06/19 11:48 AM CDT [facility] Not Available Not Available 11/07/2024 11:22:40 06/19/20 24 06/19/2024 Compr ehens thiago metab olic 2000 panel - Serum or Plasm a interpretati on and review of laboratory results Abnorm al Not Available Not Available 11:22:40 06/19/2006/19/2024 CBC W Auto Diffe renti al panel - Blood leukocytes [#/volume] in blood by automated count 5.49 text: 4.00 - 10.80 x10'3/ uL WBC 5.49 4.00 - 10.80 x10'3 /uL 06/19 11:36 AM CDT [facility] [place] [facility] Not Available Not Available 11/07/2024 11:22:39 06/19/20 24 06/19/2024 CBC W Auto Diffe renti al panel - Blood erythrocytes [#/volume] in blood by automated count 4.26 text: 4.50 - 6.10 x10'6/ uL low RBC 4.26 (L) 4.50 - 6.10 x10'6 /uL 06/19 11:36 AM CDT [facility] Not Available Not Available 11/07/2024 11:22:39 06/19/20 24 06/19/2024 CBC W Auto Diffe renti al panel - Blood hemoglobin [mass/volume ] in blood 10.6 text: 13.0 - 18.0 g/dL low HGB 10.6 (L) 13.0 - 18.0 G/DL 06/19 11:36 AM CDT [facility] ONE[facility] DUB [facility] Not Available Not Available 11/07/2024 11:22:39 06/19/20 24 06/19/2024 CBC W Auto Diffe renti al panel - Blood hematocrit [volume fraction] of blood 33.5 % low: 37%hig h: 52% low HCT 33.5 (L) 37.0 - 52.0 % 06/19 11:36 AM CDT [facility] ONE[facility]DA DUB [facility] Not Available Not Available 11/07/2024 11:22:39 06/19/20 24 06/19/2024 CBC W Auto Diffe luis armandoti al panel - Blood MCV [entitic volume] 78.6 text: 78.0 - 100.0 fL MCV 78.6 78.0 - 100.0 FL 06/19 11:36 AM CDT [facility] ONE[facility]DA DUB [facility] Not Available Not Available 11/07/2024 11:22:39 06/19/20 24 06/19/2024 CBC W Auto Diffe renti al panel - Blood MCH [entitic mass] 24.9 pg low: 27pghi gh: 31pg low MCH 24.9 (L) 27.0 - 31.0 PG 06/19 11:36 AM CDT [facility] ONEYDA DUB [facility] Not Available Not Available 11/07/2024 11:22:39 06/19/20 24 06/19/2024 CBC W Auto Diffe renti al panel - Blood MCHC [mass/volume ] 31.6 text: 33.0 - 36.0 g/dL low MCHC 31.6 (L) 33.0 - 36.0 G/DL 06/19 11:36 AM CDT [facility] Not Available Not Available 11/07/2024 11:22:39 06/19/20 24 06/19/2024 CBC W Auto Diffe renti al panel - Blood erythrocyte distribution width [entitic volume] by automated count 17.9 % low: 11.5%h igh: 14.5% high RDW 17.9 (H) 11.5 - 14.5 % 06/19 11:36 AM CDT [facility] Not Available Not Available 11/07/2024 11:22:39 06/19/2006/19/2024 CBC W Auto Diffe renti al panel - Blood platelets [#/volume] in blood 256 text: 150 - 350 x10'3/ uL PLT 256 150 - 350 x10'3 /uL 06/19 11:36 AM CDT [facility] Not Available Not Available 11/07/2024 11:22:39 06/19/20 24 06/19/2024 CBC W Auto Diffe renti al panel - Blood platelet mean volume [entitic volume] in blood 9.6 text: 7.4 - 10.4 fL MPV 9.6 7.4 - 10.4 FL 06/19 11:36 AM CDT [facility] Not Available Not Available 11/07/2024 11:22:39 06/19/20 24 06/19/2024 CBC W Auto Diffe renti al panel - Blood differential cell count method - blood AUTOMA XANDER DIFFE RENTI AL TYPE AUTOM ATED 06/19 11:36 AM CDT [facility] Not Available Not Available 11/07/2024 11:22:39 06/19/20 24 06/19/2024 CBC W Auto Diffe renti al panel - Blood neutrophils/ 100 leukocytes in blood by automated count 62.3 % SEG NEUTR OPHIL S 62.3 % 06/19 11:36 AM CDT [facility] Not Available Not Available 11/07/2024 11:22:39 06/19/20 24 06/19/2024 CBC W Auto Diffe renti al panel - Blood lymphocytes/ 100 leukocytes in blood by automated count 24 % LYMPH OCYTE S 24.0 % 06/19 11:36 AM CDT [facility] Not Available Not Available 11/07/2024 11:22:39 06/19/20 24 06/19/2024 CBC W Auto Diffe renti al panel - Blood monocytes/10 0 leukocytes in blood by automated count 10.7 % MONOC YTES 10.7 % 06/19 11:36 AM CDT [facility] Not Available Not Available 11/07/2024 11:22:39 06/19/20 24 06/19/2024 CBC W Auto Diffe renti al panel - Blood eosinophils/ 100 leukocytes in blood by automated count 2.2 % EOSIN OPHIL S 2.2 % 06/19 11:36 AM CDT [facility] Not Available Not Available 11/07/2024 11:22:39 06/19/20 24 06/19/2024 CBC W Auto Diffe renti al panel - Blood basophils/10 0 leukocytes in blood by automated count 0.4 % BASOP HILS 0.4 % 06/19 11:36 AM CDT [facility] Not Available Not Available 11/07/2024 11:22:39 06/19/20 24 06/19/2024 CBC W Auto Diffe renti al panel - Blood immature granulocytes /100 leukocytes in blood by automated count 0.4 % IMMAT URE GRANS % 0.4 % 06/19 11:36 AM CDT [facility] Not Available Not Available 11/07/2024 11:22:39 06/19/20 24 06/19/2024 CBC W Auto Diffe renti al panel - Blood nucleated erythrocytes /100 leukocytes [ratio] in blood 0 % NRBC 0.0 % 06/19 11:36 AM CDT [facility] Not Available Not Available 11/07/2024 11:22:39 06/19/20 24 06/19/2024 CBC W Auto Diffe renti al panel - Blood neutrophils [#/volume] in blood 3.42 text: 1.60 - 8.30 x10'3/ uL ABS. NEUTR OPHIL S 3.42 1.60 - 8.30 x10'3 /uL 06/19 11:36 AM CDT [facility] Not Available Not Available 11/07/2024 11:22:39 06/19/20 24 06/19/2024 CBC W Auto Diffe renti al panel - Blood lymphocytes [#/volume] in blood 1.32 text: 0.80 - 4.70 x10'3/ uL ABS. LYMPH OCYTE S 1.32 0.80 - 4.70 x10'3 /uL 06/19 11:36 AM CDT [facility] Not Available Not Available 11/07/2024 11:22:39 06/19/20 24 06/19/2024 CBC W Auto Diffe renti al panel - Blood monocytes [#/volume] in blood 0.59 text: 0.00 - 1.50 x10'3/ uL ABS. MONOC YTES 0.59 0.00 - 1.50 x10'3 /uL 06/19 11:36 AM CDT [facility] Not Available Not Available 11/07/2024 11:22:39 06/19/20 24 06/19/2024 CBC W Auto Diffe renti al panel - Blood eosinophils [#/volume] in blood 0.12 text: 0.00 - 0.40 x10'3/ uL ABS. EOSIN OPHIL S 0.12 0.00 - 0.40 x10'3 /uL 06/19 11:36 AM CDT [facility] Not Available Not Available 11/07/2024 11:22:39 06/19/20 24 06/19/2024 CBC W Auto Diffe renti al panel - Blood basophils [#/volume] in blood 0.02 text: 0.00 - 0.20 x10'3/ uL ABS. BASOP HILS 0.02 0.00 - 0.20 x10'3 /uL 06/19 11:36 AM CDT [facility] Not Available Not Available 11/07/2024 11:22:39 06/19/20 24 06/19/2024 CBC W Auto Diffe renti al panel - Blood immature granulocytes [#/volume] in blood 0.02 text: 0.00 - 0.03 x10'3/ uL ABS. IMMAT URE GRANU LOCYT ES 0.02 0.00 - 0.03 x10'3 /uL 06/19 11:36 AM CDT [facility] Not Available Not Available 11/07/2024 11:22:39 06/19/20 24 06/19/2024 CBC W Auto Diffe renti al panel - Blood nucleated erythrocytes [#/volume] in blood 0 text: 0.00 - 0.01 x10'3/ uL ABS. NUCLE ATED RBC'S 0.00 0.00 - 0.01 x10'3 /uL 06/19 11:36 AM CDT [facility] Not Available Not Available 11/07/2024 11:22:39 06/19/20 24 06/19/2024 CBC W Auto Diffe renti al panel - Blood interpretati on and review of laboratory results Abnorm al Not Available Not Available 11:22:39 09/10/19 25 09/10/2024 GLYCO HB A1C glyco Hb A1C 5.8 % 4.0-7. 0 Recom rosalind d goal of thera py for adult s with diabe mandie melli tus: <7.0% Adult s > or =18 years : Incre ased risk (pred iabet es): 5.7-6 .4% The Ameri can Diabe mandie [employer] iatio n recom mends the use of A1C for the diagn osis of diabe mandie melli tus in non-p regna nt adult s with an A1C resul t of > or =6.5% and confi rmed with repea t testi ng. Not Available [facility] [address] [place], [address], 09/10/2024 11:00:31 09/10/19 25 09/10/2024 GLYCO HB A1C estimated average glucose 120 [facility] betwe en A1c and eAG is descr ibed by the formu la (28.7 x A1c)- 46.7 = eAG. Recom rosalind d eAG: <150 mg/dL Not Available [facility] [address] [place], [address], 09/10/2024 11:00:31 09/10/19 25 09/10/2024 PROTI ME (INR) prothrombin time 14.9 s 12.2-1 4.6 high Not Available [facility] [address] [place], [address], 09/10/2024 11:08:49 09/10/19 25 09/10/2024 PROTI ME (INR) INR 1.2 {rati o} 0.9-1. 1 high Not Available [facility] [address] [place], [address], 09/10/2024 11:08:49 09/10/19 25 09/10/2024 IRON AND TIBC iron 18 65-175 low Not Available [facility] [address] [place], [address], 09/10/2024 11:13:24 09/10/19 25 09/10/2024 IRON AND TIBC transferrin 264.0 mg/dL 163.0- 344.0 Not Available [facility] [address] [place], [address], 09/10/2024 11:13:24 09/10/19 25 09/10/2024 IRON AND TIBC T.iron binding cap 393 Not Available [facility] [address] [place], [address], 09/10/2024 11:13:24 09/10/19 25 09/10/2024 IRON AND TIBC % saturation 5 % TIBC and % Satur ation are calcu lated value s. TIBC= Trans omar n x 1.49 % Satur ation = Iron/ TIBC x 100 Not Available [facility] [address] [place], [address], 09/10/2024 11:13:24 09/10/19 25 09/10/2024 MARKOS IA ammonia 31.9 18.0-7 2.0 Not Available [facility] [address], [place], [address], 09/10/2024 11:15:06 09/10/19 25 09/10/2024 OMAR TIN ferritin 28.40 NG/mL 14.00- 338.00 Not Available [facility] [address] [place], [address], 09/10/2024 11:30:30 09/10/19 25 09/10/2024 VITAM IN B12 vitamin B12 886 pg/mL 213-81 6 high Not Available [facility] [address] [place], [address], 09/10/2024 11:30:32 09/10/19 25 09/10/2024 MAGNE SIUM magnesium 1.7 mg/dL 1.6-2. 6 Not Available [facility] [address], [place], [address], 09/10/2024 15:07:42 09/10/19 25 09/10/2024 TROPO MARYCARMEN, HIGH SENSI TIVIT Y troponin, high sensitivity 3 NG/L 0-4 Refer to the High Sensi tivit y Tropo marycarmen Algor ithm for inter preta tion and risk strat ifica tion guide lines . Not Available [facility] [address] [place], [address], 09/10/2024 15:14:53 09/10/19 25 09/10/2024 DRUG SCREE N PANEL , URINE cannabinoids , urine POSITI VE abnormal Cutof f value = 50 ng/mL Not Available [facility] [address] [place], [address], 09/10/2024 19:34:06 09/10/19 25 09/10/2024 DRUG SCREE N PANEL , URINE amphetamine, urine POSITI VE abnormal Cutof f value = 1000 ng/mL Not Available [facility] [address] [place], [address], 09/10/2024 19:34:06 09/10/19 25 09/10/2024 DRUG SCREE N PANEL , URINE benzodiazepi ne, urine NEGATI VE Cutof f value 200 = ng/mL Not Available [facility] [address] [place], [address], 09/10/2024 19:34:06 09/10/19 25 09/10/2024 DRUG SCREE N PANEL , URINE barbiturate, urine NEGATI VE Cutof f value 200 = ng/mL Not Available [facility] [address] [place], [address], 09/10/2024 19:34:06 09/10/19 25 09/10/2024 DRUG SCREE N PANEL , URINE cocaine metabolite,u r POSITI VE abnormal Cutof f value = 300 ng/mL Not Available [facility] [address] [place], [address], 09/10/2024 19:34:06 09/10/19 25 09/10/2024 DRUG SCREE N PANEL , URINE methadone, urine NEGATI VE Cutof f value 300 = ng/mL Not Available [facility] [address] [place], [address], 09/10/2024 19:34:06 09/10/19 25 09/10/2024 DRUG SCREE N PANEL , URINE opiate, urine NEGATI VE Cutof f Value = 300 ng/mL Not Available [facility] [address] [place], [address], 09/10/2024 19:34:06 09/10/19 25 09/10/2024 DRUG SCREE N PANEL , URINE phencyclidin e, urine NEGATI VE Cutof f Value = 25 ng/mL Not Available [facility] [address] [place], [address], 09/10/2024 19:34:06 09/10/19 25 09/10/2024 DRUG SCREE N PANEL , URINE drugs of abuse (urine) comment see below The drugs of abuse resul ts repor xander by the [facility] are uncon firme d scree ward resul ts to be used only for medic al (i.e. , treat ment) purpo ses. Uncon firme d scree ward resul ts must not be used for non- medic al purpo ses (e.g, emplo yment testi ng or legal testi ng). Not Available [facility] [address] [place], [address], 09/10/2024 19:34:06 09/10/19 25 09/10/2024 UA WITH REFLE X CULTU RE IF INDIC ATED color YELLOW colorl ess-ye llow Not Available [facility] [address] [place], [address], 09/10/2024 19:42:22 09/10/19 25 09/10/2024 UA WITH REFLE X CULTU RE IF INDIC ATED appearance CLEAR Not Available [facility] [address] [place], [address], 09/10/2024 19:42:22 09/10/19 25 09/10/2024 UA WITH REFLE X CULTU RE IF INDIC ATED specific gravity 1.015 [arb' U] 1.003- 1.035 Not Available [facility] [address] [place], [address], 09/10/2024 19:42:22 09/10/19 25 09/10/2024 UA WITH REFLE X CULTU RE IF INDIC ATED pH 6.0 [pH] Not Available [facility] [address] [place], [address], 09/10/2024 19:42:22 09/10/19 25 09/10/2024 UA WITH REFLE X CULTU RE IF INDIC ATED protein NEGATI VE mg/dL negati ve Not Available [facility] [address] [place], [address], 09/10/2024 19:42:22 09/10/19 25 09/10/2024 UA WITH REFLE X CULTU RE IF INDIC ATED glucose NEGATI VE mg/dL negati ve Not Available [facility] [address] [place], [address], 09/10/2024 19:42:22 09/10/19 25 09/10/2024 UA WITH REFLE X CULTU RE IF INDIC ATED ketones TRACE mg/dL negati ve abnormal Not Available [facility] [address] [place], [address], 09/10/2024 19:42:22 09/10/19 25 09/10/2024 UA WITH REFLE X CULTU RE IF INDIC ATED bilirubin NEGATI VE negati ve Not Available [facility] [address] [place], [address], 09/10/2024 19:42:22 09/10/19 25 09/10/2024 UA WITH REFLE X CULTU RE IF INDIC ATED blood NEGATI VE negati ve Not Available [facility] [address] [place], [address], 09/10/2024 19:42:22 09/10/19 25 09/10/2024 UA WITH REFLE X CULTU RE IF INDIC ATED nitrite NEGATI VE negati ve Not Available [facility] [address] [place], [address], 09/10/2024 19:42:22 09/10/19 25 09/10/2024 UA WITH REFLE X CULTU RE IF INDIC ATED urobilinogen 0.2 mg/dL Not Available [facility] [address] [place], [address], 09/10/2024 19:42:22 09/10/19 25 09/10/2024 UA WITH REFLE X CULTU RE IF INDIC ATED leukocyte esterase NEGATI VE negati ve Not Available [facility] [address] [place], [address], 09/10/2024 19:42:22 09/10/19 25 09/10/2024 UA WITH REFLE X CULTU RE IF INDIC ATED RBC-manual exam 0 0-2,3- 5 Not Available [facility] [address] [place], [address], 09/10/2024 19:42:22 09/10/19 25 09/10/2024 UA WITH REFLE X CULTU RE IF INDIC ATED WBC-manual exam 3 0-2,3- 5 Not Available [facility] [address] [place], [address], 09/10/2024 19:42:22 09/10/19 25 09/10/2024 UA WITH REFLE X CULTU RE IF INDIC ATED squamous epi-manual exam FEW [lpf] none-m oderat e Not Available [facility] [address] [place], [address], 09/10/2024 19:42:22 09/10/19 25 09/10/2024 UA WITH REFLE X CULTU RE IF INDIC ATED bacteria FEW none-f ew Not Available [facility] [address] [place], [address], 09/10/2024 19:42:22 09/10/19 25 09/10/2024 Drugs of abuse panel - Urine by Scree n metho d cannabinoids [presence] in urine by screen method POSITI VE abnormal CANNA BINOI DS, URINE POSIT THIAGO (A) [facility] ATMARY ANN [employer] [facility] Not Available Not Available 11/07/2024 11:23:02 09/10/19 25 09/10/2024 Drugs of abuse panel - Urine by Scree n metho d amphetamines [presence] in urine by screen method POSITI VE abnormal AMPHE TAMIN E, URINE POSIT THIAGO (A) [facility] [employer] [facility] Not Available Not Available 11/07/2024 11:23:02 09/10/19 25 09/10/2024 Drugs of abuse panel - Urine by Scree n metho d benzodiazepi aisha [presence] in urine by screen method NEGATI VE BENZO DIAZE PINE, URINE NEGAT THIAGO [facility] [employer] [facility] Not Available Not Available 11/07/2024 11:23:02 09/10/19 25 09/10/2024 Drugs of abuse panel - Urine by Scree n metho d barbiturates [presence] in urine by screen method NEGATI VE NINOSKA TURAT E, URINE NEGAT THIAGO [facility] [employer] [facility] Not Available Not Available 11/07/2024 11:23:02 09/10/19 25 09/10/2024 Drugs of abuse panel - Urine by Scree n metho d benzoylecgon ine [presence] in urine by screen method POSITI VE abnormal COCAI NE METAB OLITE ,UR POSIT THIAGO (A) [facility] Tag[employer] ANN [employer] [facility] AT[facility] Not Available Not Available 11/07/2024 11:23:02 09/10/19 25 09/10/2024 Drugs of abuse panel - Urine by Scree n metho d methadone [presence] in urine by screen method NEGATI VE METHA DONE, URINE NEGAT THIAGO [facility] [employer] [facility] Not Available Not Available 11/07/2024 11:23:02 09/10/19 25 09/10/2024 Drugs of abuse panel - Urine by Scree n metho d opiates [presence] in urine by screen method NEGATI VE OPIAT E, URINE NEGAT THIAGO [facility] Not Available Not Available 11/07/2024 11:23:02 09/10/19 25 09/10/2024 Drugs of abuse panel - Urine by Ezequiel terrazas phencyclidin e [presence] in urine by screen method NEGATI VE PHENC YCLID INE, URINE NEGAT THIAGO [facility] Not Available Not Available 11/07/2024 11:23:02 09/10/19 25 09/10/2024 Drugs of abuse panel - Urine by Ezequiel terrazas drug screen comment [interpretat ion] in urine see below DRUGS OF ABUSE (URIN E) COMME NT see below [facility] Not Available Not Available 11/07/2024 11:23:02 09/10/19 25 09/10/2024 Drugs of abuse panel - Urine by Ezequiel terrazas interpretati on and review of laboratory results Abnorm al Not Available Not Available 11:23:02 09/10/19 25 09/10/2024 Urina lysis compl ete panel - Urine color of urine YELLOW text: colorl ess-ye llow COLOR YELLO W COLOR LESS- YELLO W [facility] Not Available Not Available 11/07/2024 11:23:02 09/10/19 25 09/10/2024 Urina lysis compl ete panel - Urine appearance of urine CLEAR APPEA JOSE CLEAR [facility] Not Available Not Available 11/07/2024 11:23:02 09/10/19 25 09/10/2024 Urina lysis compl ete panel - Urine specific gravity of urine by test strip 1.015 text: 1.003 - 1.035 arbitr barbra unit SP. GRAVI TY 1.015 1.003 - 1.035 arbit rary unit [facility] Not Available Not Available 11/07/2024 11:23:02 09/10/19 25 09/10/2024 Urina lysis compl ete panel - Urine pH of urine by test strip 6 pH PH 6.0 pH [facility] Not Available Not Available 11/07/2024 11:23:02 09/10/19 25 09/10/2024 Urina lysis compl ete panel - Urine protein [mass/volume ] in urine by test strip NEGATI VE text: negati ve mg/dL PROTE IN NEGAT THIAGO NEGAT THIAGO mg/dL [facility] Not Available Not Available 11/07/2024 11:23:02 09/10/19 25 09/10/2024 Urina lysis compl ete panel - Urine glucose [mass/volume ] in urine by test strip NEGATI VE text: negati ve mg/dL GLUCO SE NEGAT THIAGO NEGAT THIAGO mg/dL [facility] Not Available Not Available 11/07/2024 11:23:02 09/10/19 25 09/10/2024 Urina lysis compl ete panel - Urine ketones [mass/volume ] in urine by test strip TRACE text: negati ve mg/dL abnormal KETON E TRACE (A) NEGAT THIAGO mg/dL [facility] Not Available Not Available 11/07/2024 11:23:02 09/10/19 25 09/10/2024 Urina lysis compl ete panel - Urine bilirubin.to nolvia [presence] in urine by test strip NEGATI VE text: negati ve BILIR UBIN NEGAT THIAGO NEGAT THIAGO [facility] Not Available Not Available 11/07/2024 11:23:02 09/10/19 25 09/10/2024 Urina lysis compl ete panel - Urine hemoglobin [presence] in urine by test strip NEGATI VE text: negati ve BLOOD NEGAT THIAGO NEGAT THIAGO [facility] Not Available Not Available 11/07/2024 11:23:02 09/10/19 25 09/10/2024 Urina lysis compl ete panel - Urine nitrite [presence] in urine by test strip NEGATI VE text: negati ve NITRI TE NEGAT THIAGO NEGAT THIAGO [facility] Not Available Not Available 11/07/2024 11:23:02 09/10/19 25 09/10/2024 Urina lysis compl ete panel - Urine urobilinogen [units/volum e] in urine by test strip 0.2 mg/dL UROBI LINOG EN 0.2 mg/dL [facility] Not Available Not Available 11/07/2024 11:23:02 09/10/19 25 09/10/2024 Urina lysis compl ete panel - Urine leukocyte esterase [presence] in urine by test strip NEGATI VE text: negati ve LEUKO CYTE ARNIE ASE NEGAT THIAGO NEGAT THIAGO [facility] Not Available Not Available 11/07/2024 11:23:02 09/10/19 25 09/10/2024 Urina lysis compl ete panel - Urine erythrocytes [#/area] in urine sediment by microscopy high power field text: 0-2,3- 5 /hpf RBC-M ANUAL EXAM 0-2 0-2,3 -5 /HPF [facility] [employer] AT[facility] Not Available Not Available 11/07/2024 11:23:02 09/10/19 25 09/10/2024 Urina lysis compl ete panel - Urine WBC-manual exam text: 0-2,3- 5 /hpf WBC-M ANUAL EXAM 3-5 0-2,3 -5 /HPF [facility] Not Available Not Available 11/07/2024 11:23:02 09/10/19 25 09/10/2024 Urina lysis compl ete panel - Urine squamous epi-manual exam FEW text: none-m oderat e /lpf SQUAM OUS EPI-M ANUAL EXAM FEW NONE- MODER ATE /LPF [facility] Not Available Not Available 11/07/2024 11:23:02 09/10/19 25 09/10/2024 Urina lysis compl ete panel - Urine bacteria FEW text: none-f ew BACTE KO FEW NONE- FEW [facility] Not Available Not Available 11/07/2024 11:23:02 09/10/19 25 09/10/2024 Urina lysis compl ete panel - Urine interpretati on and review of laboratory results Abnorm al Not Available Not Available 11:23:02 09/10/19 25 09/10/2024 Gluco se [Mass /volu me] in Capil mirna blood by Gluco meter glucose [mass/volume ] in capillary blood by glucometer 93 mg/dL low: 60mg/d Lhigh: 99mg/d L GLUCO SE, POC 93 60 - 99 mg/dL [facility] Not Available Not Available 11/07/2024 11:23:02 09/10/19 25 09/10/2024 GLUCO SE, POC glucose, POC 93 mg/dL 60-99 Not Available [facility] [address] [place], [address], 09/10/2024 17:30:19 09/10/19 25 09/10/2024 Magne sium [Mass /volu me] in Serum or Plasm a magnesium [mass/volume ] in serum or plasma 1.7 mg/dL low: 1.6mg/ dLhigh : 2.6mg/ dL MAGNE SIUM 1.7 1.6 - 2.6 mg/dL [facility] Not Available Not Available 11/07/2024 11:23:01 09/10/19 25 09/10/2024 Gluco se [Mass /volu me] in Capil mirna blood by Gluco meter glucose [mass/volume ] in capillary blood by glucometer 105 mg/dL low: 60mg/d Lhigh: 99mg/d L high GLUCO SE, POC 105 (H) 60 - 99 mg/dL [facility] Not Available Not Available 11/07/2024 11:23:01 09/10/19 25 09/10/2024 Gluco se [Mass /volu me] in Capil mirna blood by Gluco meter interpretati on and review of laboratory results Abnorm al Not Available Not Available 11:23:01 09/10/19 25 09/10/2024 Gluco se [Mass /volu me] in Capil mirna blood by Gluco meter glucose [mass/volume ] in capillary blood by glucometer 86 mg/dL low: 60mg/d Lhigh: 99mg/d L GLUCO SE, POC 86 60 - 99 mg/dL [facility] [employer] LABOR ATORY Not Available Not Available 11/07/2024 11:23:01 09/10/19 25 09/10/2024 Challis ia [Mole s/vol ume] in Plasm a ammonia [moles/volum e] in plasma 31.9 umol/ L low: 18umol /Lhigh : 72umol /L MARKOS IA 31.9 18.0 - 72.0 umol/ L [facility] [employer] [facility] Not Available Not Available 11/07/2024 11:23:01 09/10/19 25 09/10/2024 Challis ia [Mole s/vol ume] in Plasm a Unknown Analyte From blood in lab Not Available Not Available 11:23:01 09/10/19 25 09/10/2024 GLUCO SE, POC glucose, POC 86 mg/dL 60-99 Not Available [facility] [address] [place], [address], 09/10/2024 12:00:32 09/10/19 25 09/10/2024 INR in Plate let poor plasm a by Coagu latio n assay prothrombin time (PT) 14.9 text: 12.2 - 14.6 sec high PROTH ROMBI N TIME 14.9 (H) 12.2 - 14.6 sec [facility] [employer] [facility] Not Available Not Available 11/07/2024 11:23:01 09/10/19 25 09/10/2024 INR in Plate let poor plasm a by Coagu latio n assay INR in platelet poor plasma by coagulation assay 1.2 text: 0.9 - 1.1 ratio high INR 1.2 (H) 0.9 - 1.1 ratio [facility] Not Available Not Available 11/07/2024 11:23:01 09/10/19 25 09/10/2024 INR in Plate let poor plasm a by Coagu latio n assay Unknown Analyte From blood in lab Not Available Not Available 11:23:01 09/10/19 25 09/10/2024 INR in Plate let poor plasm a by Billy nichole assay interpretati on and review of laboratory results Abnorm al Not Available Not Available 11:23:01 09/10/19 25 09/10/2024 Cobal arteaga (Gabby min B12) [Mass /volu me] in Serum or Plasm a cobalamin (vitamin B12) [mass/volume ] in serum or plasma 886 pg/mL low: 213pg/ mLhigh : 816pg/ mL high VITAM IN B12 886 (H) 213 - 816 pg/mL [email or web address] Not Available Not Available 11/07/2024 11:23:01 09/10/19 25 09/10/2024 Cobal arteaga (Gabby min B12) [Mass /volu me] in Serum or Plasm a Unknown Analyte From blood in lab Not Available Not Available 11:23:01 09/10/19 25 09/10/2024 Cobal arteaga (Gabby min B12) [Mass /volu me] in Serum or Plasm a interpretati on and review of laboratory results Abnorm al Not Available Not Available 11:23:01 09/10/19 25 09/10/2024 Iron and Iron kwame ng capac ity panel - Serum or Plasm a iron [mass/volume ] in serum or plasma 18 ug/dL low: 65ug/d Lhigh: 175ug/ dL low IRON 18 (L) 65 - 175 ug/dL [email or web address] Not Available Not Available 11/07/2024 11:23:01 09/10/19 25 09/10/2024 Iron and Iron kwame ng capac ity panel - Serum or Plasm a transferrin [mass/volume ] in serum or plasma 264 mg/dL low: 163mg/ dLhigh : 344mg/ dL TRANS OMAR N 264.0 163.0 - 344.0 mg/dL [email or web address] Not Available Not Available 11/07/2024 11:23:01 09/10/19 25 09/10/2024 Iron and Iron kwame ng capac ity panel - Serum or Plasm a iron binding capacity [mass/volume ] in serum or plasma 393 ug/dL T.IRO N KWAME NG CAP 393 ug/dL [facility] [employer] [facility] Not Available Not Available 11/07/2024 11:23:01 09/10/19 25 09/10/2024 Iron and Iron kwame ng capac ity panel - Serum or Plasm a iron saturation [molar fraction] in serum or plasma 5 % % SATUR ATION 5 % [facility] Not Available Not Available 11/07/2024 11:23:01 09/10/19 25 09/10/2024 Iron and Iron kwame ng capac ity panel - Serum or Plasm a Unknown Analyte From blood in lab Not Available Not Available 11:23:01 09/10/19 25 09/10/2024 Iron and Iron kwame ng capac ity panel - Serum or Plasm a interpretati on and review of laboratory results Abnorm al Not Available Not Available 11:23:01 09/10/19 25 09/10/2024 Omar tin [Mass /volu me] in Serum or Plasm a ferritin [mass/volume ] in serum or plasma 28.4 NG/mL low: 14NG/m Lhigh: 338NG/ mL OMAR TIN 28.40 14.00 - 338.0 0 ng/mL [facility] [employer] AT[facility] Not Available Not Available 11/07/2024 11:23:01 09/10/19 25 09/10/2024 Omar tin [Mass /volu me] in Serum or Plasm a Unknown Analyte From blood in lab Not Available Not Available 11:23:01 09/10/19 25 09/10/2024 Hemog lobin A1c/H emogl obin. total in Blood by Elect rop resis hemoglobin A1C/hemoglob in.total in blood 5.8 % low: 4%high : 7% GLYCO HB A1C 5.8 4.0 - 7.0 % [facility] [employer] ATORY Not Available Not Available 11/07/2024 11:23:01 09/10/19 25 09/10/2024 Hemog lobin A1c/H emogl obin. total in Blood by Elect ropho resis glucose mean value [mass/volume ] in blood estimated from glycated hemoglobin 120 ESTIM ATED AVERA GE GLUCO SE 120 [facility] [employer] AT[facility] Not Available Not Available 11/07/2024 11:23:01 09/10/19 25 09/10/2024 Hemog lobin A1c/H emogl obin. total in Blood by Elect sunny [place] Unknown Analyte From blood in lab Not Available Not Available 11:23:01 09/10/19 25 09/10/2024 Lacta te [Mole s/vol ume] in Serum or Plasm a lactate [moles/volum e] in serum or plasma 1.11 mmol/ L low: 0.5mmo l/Lhig h: 2.2mmo l/L LACTI C ACID, PLASM A 1.11 0.50 - 2.20 mmol/ L [facility] [employer] [facility] Not Available Not Available 11/07/2024 11:23:00 09/10/19 25 09/10/2024 Lipas e [Enzy matic activ ity/v olume ] in Serum or Plasm a lipase [enzymatic activity/vol ume] in serum or plasma 10 U/L low: 8U/Lhi gh: 78U/L LIPAS E 10 8 - 78 U/L [facility] [employer] AT[facility] Not Available Not Available 11/07/2024 11:23:00 09/10/19 25 09/10/2024 Karthikeyan ol [Mass /volu me] in Serum or Plasm a ethanol [mass/volume ] in serum or plasma NONE DETECT ED text: none detect ed g/dL ALCOH OL, SERUM NONE DETEC XANDER NONE DETEC XANDER g/dL [facility] [employer] [facility] Not Available Not Available 11/07/2024 11:23:00 09/10/19 25 09/10/2024 Compr ehens thiago metab olic 1999 panel - Serum or Plasm a calcium [mass/volume ] in serum or plasma 8.2 mg/dL low: 8.9mg/ dLhigh : 10.6mg /dL low CALCI UM 8.2 (L) 8.9 - 10.6 mg/dL [facility] [employer] AT[facility] Not Available Not Available 11/07/2024 11:23:00 09/10/19 25 09/10/2024 Compr ehens thiago metab olic 2000 panel - Serum or Plasm a glucose [mass/volume ] in serum or plasma 115 mg/dL low: 74mg/d Lhigh: 100mg/ dL high GLUCO SE 115 (H) 74 - 100 mg/dL [facility] [employer] ATORY Not Available Not Available 11/07/2024 11:23:00 09/10/19 25 09/10/2024 Compr Sportisticens thiago metab olic 1999 panel - Serum or Plasm a urea nitrogen [mass/volume ] in serum or plasma 14 mg/dL low: 8mg/dL high: 26mg/d L BUN 14 8 - 26 mg/dL [facility] [employer] ATORY Not Available Not Available 11/07/2024 11:23:00 09/10/19 25 09/10/2024 Compr Sportisticens thiago metab olic 2000 panel - Serum or Plasm a creatinine [mass/volume ] in serum or plasma 0.79 mg/dL low: 0.7mg/ dLhigh : 1.3mg/ dL CREAT ININE 0.79 0.70 - 1.30 mg/dL [facility] [employer] AT[facility] Not Available Not Available 11/07/2024 11:23:00 09/10/19 25 09/10/2024 Compr [place] thiago metab olic 2000 panel - Serum or Plasm a protein [mass/volume ] in serum or plasma 6.2 g/dL low: 6g/dLh igh: 8g/dL TOTAL PROTE IN 6.2 6.0 - 8.0 g/dL [facility] [employer] ATORY Not Available Not Available 11/07/2024 11:23:00 09/10/19 25 09/10/2024 Compr Sportisticens thiago metab olic 2000 panel - Serum or Plasm a albumin [mass/volume ] in serum or plasma by bromocresol purple (bcp) dye binding method 2.9 g/dL low: 3.4g/d Lhigh: 4.8g/d L low ALBUM IN 2.9 (L) 3.4 - 4.8 g/dL [facility] [employer] ATORY Not Available Not Available 11/07/2024 11:23:00 09/10/19 25 09/10/2024 Compr [place] thiago metab olic 2000 panel - Serum or Plasm a bilirubin.to nolvia [mass/volume ] in serum or plasma 0.8 mg/dL low: 0.2mg/ dLhigh : 1.2mg/ dL BILIR UBIN, TOTAL 0.8 0.2 - 1.2 mg/dL [facility] [employer] [facility] Not Available Not Available 11/07/2024 11:23:00 09/10/19 25 09/10/2024 Compr ens thiago metab olic 1999 panel - Serum or Plasm a aspartate aminotransfe rase [enzymatic activity/vol ume] in serum or plasma by with P-5'-P 20 U/L low: 9U/Lhi gh: 43U/L AST 20 9 - 43 U/L [facility] [employer] Not Available Not Available 11/07/2024 11:23:00 09/10/19 25 09/10/2024 Compr ehens thiago metab olic 1999 panel - Serum or Plasm a alanine aminotransfe rase [enzymatic activity/vol ume] in serum or plasma by with P-5'-P 9 U/L low: 0U/Lhi gh: 45U/L ALT 9 0 - 45 U/L [facility] Not Available Not Available 11/07/2024 11:23:00 09/10/19 25 09/10/2024 Compr ehens thiago metab olic 1999 panel - Serum or Plasm a alkaline phosphatase [enzymatic activity/vol ume] in serum or plasma 153 U/L low: 40U/Lh igh: 150U/L high ALKAL INE PHOSP HATAS E 153 (H) 40 - 150 U/L [facility] [employer] Not Available Not Available 11/07/2024 11:23:00 09/10/19 25 09/10/2024 Compr ehens thiaog metab olic 2000 panel - Serum or Plasm a sodium [moles/volum e] in serum or plasma 139 mmol/ L low: 136mmo l/Lhig h: 145mmo l/L SODIU M 139 136 - 145 mmol/ L [facility] [employer] [facility] Not Available Not Available 11/07/2024 11:23:00 09/10/19 25 09/10/2024 Compr ehens thiago metab olic 1999 panel - Serum or Plasm a potassium [moles/volum e] in serum or plasma 3.7 mmol/ L low: 3.5mmo l/Lhig h: 5.1mmo l/L POTAS SIUM 3.7 3.5 - 5.1 mmol/ L [facility] [employer] [facility] Not Available Not Available 11/07/2024 11:23:00 09/10/19 25 09/10/2024 Compr ehens thiago metab olic 1999 panel - Serum or Plasm a chloride [moles/volum e] in serum or plasma 107 mmol/ L low: 98mmol /Lhigh : 107mmo l/L CHLOR ROXANNA 107 98 - 107 mmol/ L [facility] Not Available Not Available 11/07/2024 11:23:00 09/10/19 25 09/10/2024 Compr ehens thiago metab olic 1999 panel - Serum or Plasm a carbon dioxide, total [moles/volum e] in serum or plasma 25 mmol/ L low: 22mmol /Lhigh : 29mmol /L CO2 25.0 22.0 - 29.0 mmol/ L [facility] Not Available Not Available 11/07/2024 11:23:00 09/10/19 25 09/10/2024 Compr ehens thiago metab olic 1999 panel - Serum or Plasm a glomerular filtration rate/1.73 sq M.predicted [volume rate/area] in serum, plasma or blood by creatinine-b ased formula (CKD-epi 2020) 99 text: arbitr barbra unit GFR: CKD-E PI 2020 CREAT 99 arbit rary unit [facility] Not Available Not Available 11/07/2024 11:23:00 09/10/19 25 09/10/2024 Compr ehens thiago metab olic 2000 panel - Serum or Plasm a interpretati on and review of laboratory results Abnorm al Not Available Not Available 11:23:00 09/10/19 25 09/10/2024 CBC W Diffe renti al panel , metho d unspe cifie d - Blood leukocytes [#/volume] in blood by automated count 5.68 10^3/ uL low: 410^3/ uLhigh : 1110^3 /uL WBC 5.68 4.00 - 11.00 10^3/ uL [facility] [employer] AT[facility] Not Available Not Available 11/07/2024 11:23:00 09/10/19 25 09/10/2024 CBC W Diffe renti al panel , metho d unspe cifie d - Blood erythrocytes [#/volume] in blood by automated count 3.78 10^6/ uL low: 4.110^ 6/uLhi gh: 5.710^ 6/uL low RBC 3.78 (L) 4.10 - 5.70 10^6/ uL [facility] [employer] [facility] Not Available Not Available 11/07/2024 11:23:00 09/10/19 25 09/10/2024 CBC W Diffe luis armandoti al panel , metho d unspe cifie d - Blood hemoglobin [mass/volume ] in blood 9.3 g/dL low: 12g/dL high: 18g/dL low HGB 9.3 (L) 12.0 - 18.0 g/dL [facility] Not Available Not Available 11/07/2024 11:23:00 09/10/1909/10/2024 CBC W Uriahe sky al panel , metho d unspe cifie d - Blood hematocrit [volume fraction] of blood by automated count 29.5 % low: 37%hig h: 51% low HCT 29.5 (L) 37.0 - 51.0 % [facility] [employer] [facility] Not Available Not Available 11/07/2024 11:23:00 09/10/19 25 09/10/2024 CBC W Diffe renti al panel , metho d unspe cifie d - Blood MCV [entitic volume] by automated count 78 fL low: 80fLhi gh: 100fL low MCV 78.0 (L) 80.0 - 100.0 fL [facility] [employer] [facility] Not Available Not Available 11/07/2024 11:23:00 09/10/19 25 09/10/2024 CBC W Diffhossein swanson al panel , metho d unspe cifie d - Blood MCH [entitic mass] by automated count 24.6 pg low: 27pghi gh: 33pg low MCH 24.6 (L) 27.0 - 33.0 pg [facility] [employer] [facility] Not Available Not Available 11/07/2024 11:23:00 09/10/19 25 09/10/2024 CBC W Sharon swanson al panel , metho d unspe cifie d - Blood MCHC [mass/volume ] by automated count 31.5 g/dL low: 32g/dL high: 36g/dL low MCHC 31.5 (L) 32.0 - 36.0 g/dL [facility] Not Available Not Available 11/07/2024 11:23:00 09/10/1909/10/2024 CBC W Diffhossein swanson al panel , metho d unspe cifie d - Blood erythrocyte distribution width [ratio] by automated count 18.5 % low: 12%hig h: 15% high RDW 18.5 (H) 12.0 - 15.0 % [facility] Not Available Not Available 11/07/2024 11:23:00 09/10/1909/10/2024 CBC W Sharon swanson al panel , metho d unspe cifie d - Blood erythrocyte distribution width [entitic volume] by automated count 51.6 fL low: 36.7fL high: 46.1fL high RDW-S D 51.6 (H) 36.7 - 46.1 fL [facility] Not Available Not Available 11/07/2024 11:23:00 09/10/19 25 09/10/2024 CBC W Diffe sky al panel , metho d unspe cifie d - Blood platelets [#/volume] in blood by automated count 270 10^3/ uL low: 72166^ 3/uLhi gh: 94601^ 3/uL PLATE LET 270 140 - 400 10^3/ uL [facility] [employer] [facility] Not Available Not Available 11/07/2024 11:23:00 09/10/19 25 09/10/2024 CBC W Sharon swanson al panel , metho d unspe cifie d - Blood platelet mean volume [entitic volume] in blood by automated count 9.2 fL low: 9fLhig h: 12fL MPV 9.2 9.0 - 12.0 fL [facility] [employer] [facility] Not Available Not Available 11/07/2024 11:23:00 09/10/19 25 09/10/2024 CBC W Sharon swanson al panel , metho d unspe cifie d - Blood nucleated erythrocytes [#/volume] in blood by automated count 0 10^3/ uL low: 010^3/ uLhigh : 010^3/ uL # NRBC 0.00 0.00 - 0.00 10^3/ uL [facility] [employer] [facility] Not Available Not Available 11/07/2024 11:23:00 09/10/19 25 09/10/2024 CBC W Sharon swanson al panel , metho d unspe cifie d - Blood nucleated erythrocytes /100 leukocytes [ratio] in blood by automated count 0 text: 0.0 - 0.0 /100 WBC % NRBC 0.00 0.0 - 0.0 /100 WBC [facility] Not Available Not Available 11/07/2024 11:23:00 09/10/19 25 09/10/2024 CBC W Sharon swanson al panel , metho d unspe cifie d - Blood neutrophils/ 100 leukocytes in blood by automated count 75.9 % SEG 75.9 % [facility] [employer] [facility] Not Available Not Available 11/07/2024 11:23:00 09/10/19 25 09/10/2024 CBC W Sharon swanson al panel , metho d unspe cifie d - Blood lymphocytes/ 100 leukocytes in blood by automated count 13 % LYMPH OCYTE 13.0 % [facility] [employer] [facility] Not Available Not Available 11/07/2024 11:23:00 09/10/19 25 09/10/2024 CBC W Sharon swanson al panel , metho d unspe cifie d - Blood monocytes/10 0 leukocytes in blood by automated count 9.2 % MONOC YTE 9.2 % [facility] Not Available Not Available 11/07/2024 11:23:00 09/10/19 25 09/10/2024 CBC W Diffe renti al panel , metho d unspe cifie d - Blood eosinophils/ 100 leukocytes in blood by manual count 0.9 % EOSIN OPHIL 0.9 % [facility] Not Available Not Available 11/07/2024 11:23:00 09/10/19 25 09/10/2024 CBC W Diffe renti al panel , metho d unspe cifie d - Blood basophils/10 0 leukocytes in blood by automated count 0.5 % BASOP HIL 0.5 % [facility] Not Available Not Available 11/07/2024 11:23:00 09/10/19 25 09/10/2024 CBC W Diffe luis armandoti al panel , metho d unspe cifie d - Blood immature granulocytes [#/volume] in blood by automated count 0.5 % IMMAT URE GRANU LOCYT E 0.5 % [facility] Not Available Not Available 11/07/2024 11:23:00 09/10/19 25 09/10/2024 CBC W Diffe sky al panel , metho d unspe cifie d - Blood neutrophils [#/volume] in blood by automated count 4.31 10^3/ uL low: 1.610^ 3/uLhi gh: 7.710^ 3/uL ABSOL VENETIE IRA NEUTR 4.31 1.60 - 7.70 10^3/ uL [facility] Not Available Not Available 11/07/2024 11:23:00 09/10/19 25 09/10/2024 CBC W Diffe renti al panel , metho d unspe cifie d - Blood lymphocytes [#/volume] in blood by automated count 0.74 10^3/ uL low: 110^3/ uLhigh : 4.910^ 3/uL low ABSOL VENETIE IRA LYMPH 0.74 (L) 1.00 - 4.90 10^3/ uL [facility] Not Available Not Available 11/07/2024 11:23:00 09/10/19 25 09/10/2024 CBC W Diffe luis armandoti al panel , metho d unspe cifie d - Blood monocytes [#/volume] in blood by automated count 0.52 10^3/ uL low: 010^3/ uLhigh : 1.110^ 3/uL ABSOL VENETIE IRA MONO 0.52 0.00 - 1.10 10^3/ uL [facility] [employer] [facility] Not Available Not Available 11/07/2024 11:23:00 09/10/19 25 09/10/2024 CBC W Diffe renti al panel , metho d unspe cifie d - Blood eosinophils [#/volume] in blood by automated count 0.05 10^3/ uL low: 010^3/ uLhigh : 0.510^ 3/uL ABSOL VENETIE IRA EOS 0.05 0.00 - 0.50 10^3/ uL [facility] [employer] [facility] Not Available Not Available 11/07/2024 11:23:00 09/10/19 25 09/10/2024 CBC W Diffe sky al panel , metho d unspe cifie d - Blood basophils [#/volume] in blood by automated count 0.03 10^3/ uL low: 010^3/ uLhigh : 0.210^ 3/uL ABSOL VENETIE IRA BASO 0.03 0.00 - 0.20 10^3/ uL [facility] [employer] [facility] Not Available Not Available 11/07/2024 11:23:00 09/10/19 25 09/10/2024 CBC W Diffe sky al panel , metho d unspe cifie d - Blood immature granulocytes [#/volume] in blood by automated count 0.03 10^3/ uL low: 010^3/ uLhigh : 0.0910 ^3/uL ABSOL VENETIE IRA IMMAT URE GRANU LOCYT E 0.03 0.00 - 0.09 10^3/ uL [facility] [employer] [facility] Not Available Not Available 11/07/2024 11:23:00 09/10/19 25 09/10/2024 CBC W Diffe renti al panel , metho d unspe cifie d - Blood interpretati on and review of laboratory results Abnorm al Not Available Not Available 11:23:00 09/11/19 25 09/11/2024 CBC W/O DIFF WBC 5.66 4.00-1 1.00 Not Available [facility] [address] [place], [address], 09/11/2024 07:22:12 09/11/19 25 09/11/2024 CBC W/O DIFF RBC 4.78 4.10-5 .70 Not Available [facility] [address] [place], [address], 09/11/2024 07:22:12 09/11/19 25 09/11/2024 CBC W/O DIFF HGB 11.8 g/dL 12.0-1 8.0 low Not Available [facility] [address] [place], [address], 09/11/2024 07:22:12 09/11/19 25 09/11/2024 CBC W/O DIFF HCT 39.9 % 37.0-5 1.0 Not Available [facility] [address] [place], [address], 09/11/2024 07:22:12 09/11/19 25 09/11/2024 CBC W/O DIFF MCV 83.5 fL 80.0-1 00.0 Not Available [facility] [address] [place], [address], 09/11/2024 07:22:12 09/11/19 25 09/11/2024 CBC W/O DIFF MCH 24.7 pg 27.0-3 3.0 low Not Available [facility] [address] [place], [address], 09/11/2024 07:22:12 09/11/19 25 09/11/2024 CBC W/O DIFF MCHC 29.6 g/dL 32.0-3 6.0 low Not Available [facility] [address] [place], [address], 09/11/2024 07:22:12 09/11/19 25 09/11/2024 CBC W/O DIFF RDW 19.4 % 12.0-1 5.0 high Not Available [facility] [address] [place], [address], 09/11/2024 07:22:12 09/11/19 25 09/11/2024 CBC W/O DIFF RDW-SD 58.2 fL 36.7-4 6.1 high Not Available [facility] [address] [place], [address], 09/11/2024 07:22:12 09/11/19 25 09/11/2024 CBC W/O DIFF platelet 237 140-40 0 Not Available [facility] [address] [place], [address], 09/11/2024 07:22:12 09/11/19 25 09/11/2024 CBC W/O DIFF MPV 10.8 fL 9.0-12 .0 Not Available [facility] [address] [place], [address], 09/11/2024 07:22:12 09/11/19 25 09/11/2024 CBC W/O DIFF # NRBC 0.00 0.00-0 .00 Not Available [facility] [address] [place], [address], 09/11/2024 07:22:12 09/11/19 25 09/11/2024 CBC W/O DIFF % NRBC 0.00 0.0-0. 0 Not Available [facility] [address] [place], [address], 09/11/2024 07:22:12 09/11/19 25 09/11/2024 COMP METAB OLIC PANEL calcium 8.4 mg/dL 8.9-10 .6 low Not Available [facility] [address] [place], [address], 09/11/2024 07:40:22 09/11/19 25 09/11/2024 COMP METAB OLIC PANEL glucose 120 mg/dL 74-100 high Not Available [facility] [address] [place], [address], 09/11/2024 07:40:22 09/11/19 25 09/11/2024 COMP METAB OLIC PANEL BUN 7 mg/dL 8-26 low Not Available [facility] [address] [place], [address], 09/11/2024 07:40:22 09/11/19 25 09/11/2024 COMP METAB OLIC PANEL creatinine 0.73 mg/dL 0.70-1 .30 Not Available [facility] [address] [place], [address], 09/11/2024 07:40:22 09/11/19 25 09/11/2024 COMP METAB OLIC PANEL protein, serum total 6.7 g/dL 6.0-8. 0 Not Available [facility] [address] [place], [address], 09/11/2024 07:40:22 09/11/19 25 09/11/2024 COMP METAB OLIC PANEL albumin 2.9 g/dL 3.4-4. 8 low Not Available [facility] [address] [place], [address], 09/11/2024 07:40:22 09/11/19 25 09/11/2024 COMP METAB OLIC PANEL bilirubin, total 0.7 mg/dL 0.2-1. 2 Not Available [facility] [address] [place], [address], 09/11/2024 07:40:22 09/11/19 25 09/11/2024 COMP METAB OLIC PANEL AST 35 U/L 9-43 Not Available [facility] [address] [place], [address], 09/11/2024 07:40:22 09/11/19 25 09/11/2024 COMP METAB OLIC PANEL ALT 11 U/L 0-45 Not Available [facility] [address] [place], [address], 09/11/2024 07:40:22 09/11/19 25 09/11/2024 COMP METAB OLIC PANEL alkaline phosphatase 165 U/L 40-150 high Not Available [facility] [address] [place], [address], 09/11/2024 07:40:22 09/11/19 25 09/11/2024 COMP METAB OLIC PANEL sodium 138 mmol/ L 136-14 5 Not Available [facility] [address] [place], [address], 09/11/2024 07:40:22 09/11/19 25 09/11/2024 COMP METAB OLIC PANEL potassium 4.1 mmol/ L 3.5-5. 1 Not Available [facility] [address] [place], [address], 09/11/2024 07:40:22 09/11/19 25 09/11/2024 COMP METAB OLIC PANEL chloride 110 mmol/ L 98-107 high Not Available [facility] [address] [place], [address], 09/11/2024 07:40:22 09/11/19 25 09/11/2024 COMP METAB OLIC PANEL CO2 (carbon dioxide) 20.0 mmol/ L 22.0-2 9.0 low Not Available [facility] [address] [place], [address], 09/11/2024 07:40:22 09/11/19 25 09/11/2024 COMP METAB OLIC PANEL GFR: CKD-epi 2020 creat. 101 [arb' U] eGFR of 90 or highe r is in the rebeca l range eGFR of 60-89 may mean early -stag e kidne y disea se eGFR of 15-59 may mean kidne y disea se eGFR below 15 may mean kidne y failu re NOTE: The GFR estim ate is repor xander in ml/mi n/1.7 3 squar e meter s. Effec tive 02/02 the repor xander GFR estim ate is calcu lated using the CKD-E PI 2020 equat ion and is inten ded only for the asses sment of chron ic kidne y disea se. Not Available [facility] [address] [place], [address], 09/11/2024 07:40:22 09/11/19 25 09/11/2024 MAGNE SIUM magnesium 2.0 mg/dL 1.6-2. 6 Not Available [facility] [address] [place], [address], 09/11/2024 07:40:23 09/11/19 25 09/11/2024 RESPI RATOR Y PATHO GENS PANEL adenovirus Not Detect ed not detect ed Not Available [facility] [address] [place], [address], 09/11/2024 11:19:45 09/11/19 25 09/11/2024 RESPI RATOR Y PATHO GENS PANEL coronavirus 229E Not Detect ed not detect ed Not Available [facility] [address] [place], [address], 09/11/2024 11:19:45 09/11/19 25 09/11/2024 RESPI RATOR Y PATHO GENS PANEL coronavirus hku1 Not Detect ed not detect ed Not Available [facility] [address] [place], [address], 09/11/2024 11:19:45 09/11/19 25 09/11/2024 RESPI RATOR Y PATHO GENS PANEL coronavirus nl63 Not Detect ed not detect ed Not Available [facility] [address] [place], [address], 09/11/2024 11:19:45 09/11/19 25 09/11/2024 RESPI RATOR Y PATHO GENS PANEL coronavirus oc43 Not Detect ed not detect ed Not Available [facility] [address] [place], [address], 09/11/2024 11:19:45 09/11/19 25 09/11/2024 RESPI RATOR Y PATHO GENS PANEL coronavirus (sars-cov-2) Not Detect ed not detect ed Not Available [facility] [address] [place], [address], 09/11/2024 11:19:45 09/11/19 25 09/11/2024 RESPI RATOR Y PATHO GENS PANEL metapneumovi rubi (human) Not Detect ed not detect ed Not Available [facility] [address] [place], [address], 09/11/2024 11:19:45 09/11/19 25 09/11/2024 RESPI RATOR Y PATHO GENS PANEL rhino/entero vir (human) Not Detect ed not detect ed Not Available [facility] [address] [place], [address], 09/11/2024 11:19:45 09/11/19 25 09/11/2024 RESPI RATOR Y PATHO GENS PANEL influenza A Not Detect ed not detect ed Not Available [facility] [address] [place], [address], 09/11/2024 11:19:45 09/11/19 25 09/11/2024 RESPI RATOR Y PATHO GENS PANEL influenza B Not Detect ed not detect ed Not Available [facility] [address] [place], [address], 09/11/2024 11:19:45 09/11/19 25 09/11/2024 RESPI RATOR Y PATHO GENS PANEL parainfluenz a virus 1 Not Detect ed not detect ed Not Available [facility] [address] [place], [address], 09/11/2024 11:19:45 09/11/19 25 09/11/2024 RESPI RATOR Y PATHO GENS PANEL parainfluenz a virus 2 Not Detect ed not detect ed Not Available [facility] [address] [place], [address], 09/11/2024 11:19:45 09/11/19 25 09/11/2024 RESPI RATOR Y PATHO GENS PANEL parainfluenz a virus 3 Not Detect ed not detect ed Not Available [facility] [address] [place], [address], 09/11/2024 11:19:45 09/11/19 25 09/11/2024 RESPI RATOR Y PATHO GENS PANEL parainfluenz a virus 4 Not Detect ed not detect ed Not Available [facility] [address] [place], [address], 09/11/2024 11:19:45 09/11/19 25 09/11/2024 RESPI RATOR Y PATHO GENS PANEL respir syncytial virus Not Detect ed not detect ed Not Available [facility] [address] [place], [address], 09/11/2024 11:19:45 09/11/19 25 09/11/2024 RESPI RATOR Y PATHO GENS PANEL bordetella parapertussi s Not Detect ed not detect ed Not Available [facility] [address] [place], [address], 09/11/2024 11:19:45 09/11/19 25 09/11/2024 RESPI RATOR Y PATHO GENS PANEL bordetella pertussis Not Detect ed not detect ed Not Available [facility] [address] [place], [address], 09/11/2024 11:19:45 09/11/19 25 09/11/2024 RESPI RATOR Y PATHO GENS PANEL chlamydia pneumoniae Not Detect ed not detect ed Not Available [facility] [address] [place], [address], 09/11/2024 11:19:45 09/11/19 25 09/11/2024 RESPI RATOR Y PATHO GENS PANEL mycoplasma pneumoniae Not Detect ed not detect ed Not Available [facility] [address] [place], [address], 09/11/2024 11:19:45 09/11/19 25 09/11/2024 RESPI RATOR Y PATHO GENS PANEL test information SEE BELOW This test is FDA appro toyin for indiv idual s suspe cted of respi rator y tract infec tion. Resul ts of this test are meant to be used in conju nctio n with clini andreina histo ry/ep idemi ologi andreina data and other labor atory data, and shoul d not be used as the sole basis for diagn osis. Organ ism nucle ic acid may persi st in vivo indep enden t of organ ism viabi lity. Posit thiago resul ts do not rule out co-in fecti on with organ isms not inclu ded on this panel . Negat thiago resul ts in the setti ng of a respi rator y illne ss may be due to patho gens which are not detec xander by this test, or lower respi rator y infec tion which may not be detec xander by a nasop haryn geal swab. Test resul ts may be affec xander by concu rrent antiv iral/ antib acter ial thera py or organ ism level s that are below the limit of detec tion for the test. Metho d: multi plex PCR using the [employer] rray. Not Available [facility] [address] [place], [address], 09/11/2024 11:19:45 09/11/19 25 09/11/2024 RESPI RATOR Y PATHO GENS PANEL patient instructions SEE BELOW You are being given this Fact Sheet becau se your sampl e(s) was teste d for the Coron aviru s Disea 2018 (COVI D-19) using the [employer] Respi rator y Panel 2.1 (RP2. 1). This Fact Sheet conta ins dickr albaro nichole to help you under stand the risks and benef its of using this test for the diagn osis of COVID -19. After readi ng this Fact Sheet , if you have quest ions or would like to discu ss the infor matio n provi ded, pleas e talk to your healt jaclyn pritchetti elliot. For the most up to date infor matio n on COVID - 19 pleas e visit the [facility] Coron aviru s Disea 2018 (COVI D-19) webpa ge: https ://ww w.cdc .gov/ COVID 19 What is COVID -19? COVID -19 is cause d by the SARS- CoV-2 virus . The virus , which can cause mild to sever e respi rator y illne ss, was first ident ified in [facility] , and has now sprea d globa lly, inclu ding the [place]. There is limit ed infor matio n avail able to curt cteri ze the spect rum of clini andreina illne ss assoc iated with COVID -19 but it likel y sprea ds to other s when a perso n shows signs or sympt oms of being sick (e.g. , fever , cough ing, diffi culty breat nubia, etc.) . What is the [employer] RP2.1 Test? The test is desig morenita to detec t the virus that cause s COVID -19 in addit ion to 21 other patho gens causi ng the respi rator y infec tions in respi rator y speci mens, such as nasal swabs . Why was my sampl e teste d? You were teste d becau se your healt jaclyn provi elliot belie ves you may have been expos ed to the virus that cause s COVID -19 based on your signs and sympt oms (e.g. , fever , cough , diffi culty breat nubia) , and/o r becau se: - You live in or have recen boaz trave led to a place where trans curt on of COVID -19 is known to occur , and/o r - You have been in close conta ct with an indiv idual suspe cted of or confi rmed to have COVID -19. Testi isabel of the [facility] es will help find out if you may have COVID -19. What are the known and poten tial risks and benef its of the test? Poten tial risks inclu de: - Possi ble disco mfort or other compl icati ons that can happe n durin g sampl e colle ction . - Possi ble incor rect test resul t (see below for more infor matio n). Poten tial benef its inclu de: - The resul ts, along with other infor matio n, can help your healt hcare provi elliot make infor med recom menda tions about your care. - This test may help rule out or ident tim other cause s of respi rator y infec tion detec xander by this test or poten tial coinf ectio ns. - The resul ts of this test may help limit the sprea d of COVID -19 to your famil y and other s in your commu nity. What does it mean if I have a posit thiago test resul t? If you have a posit thiago test resul t, it is very likel y that you have COVID -19. There fore, it is also likel y that you may be place d in isola tion to avoid sprea ding the virus to other s. There is a very small chanc e that this test can give a posit thiago resul t that is wrong (a false posit thiago resul t). Your healt hcare provi elliot will work with you to deter mine how best to care for you based on the test resul ts along with medic al histo ry, and your sympt oms. If you have a posit thiago resul t for anoth er respi rator y patho gen (e.g. , Influ ariel A), your healt hcare provi elliot will deter mine the best way to care for you based on the test resul ts along with other facto rs in your medic al histo ry. What does it mean if I have a negat thiago test resul t? A negat thiago test resul t means that the virus that cause s COVID -19 was not found in your sampl e. For COVID -19, a negat thiago test resul t for a sampl e colle cted while a perso n has sympt oms usual ly means that COVID -19 did not cause your recen t illne ss. This test can also detec t 21 other commo n patho gens that cause respi rator y infec tions . If you have a negat thiago resul t for the other 21 patho gens, it means that those patho gens were not found in your sampl e. Howev er, it is possi ble for this test to give a negat thiago resul t that is incor rect (fals e negat thiago) in some peopl e with COVID -19. This means that you could possi joseph still have COVID -19 even thoug h the test is negat thiago. If this is the case, your healt hcare provi elliot will consi elliot the test resul t toget her with all other aspec ts of your medic al histo ry (such as sympt oms, possi ble expos ures, and geogr aphic al locat ion of place s you have recen boaz jin led) in decid ing how to care for you. It is impor tant that you work with your healt hcare provi elliot to help you under stand the next steps you shoul d take. Is this test FDA-a pprov ed or clear ed? No. This test is not yet appro toyin or clear ed by the [facility] s FDA. When there are no FDA-a pprov ed or clear ed tests avail able, and other crite ko are met, FDA can make tests avail able under an emerg ency acces s mecha nism short d an Emerg ency Use Autho rizat ion (EUA) . The EUA for this test is suppo rted by the [facility] [employer] [employer] [facility] [employer] ([facility]) decla ratio n that circu mstan inge exist to justi fy the emerg ency use of in vitro diagn ostic s for the detec tion and/o r diagn osis of the virus that cause s COVID -19. This EUA will remai n in effec t (mean ing this test can be used) for the durat ion of the COVID -19 decla ratio n justi maikeling emerg ency of IVDs, unles s it is termi nated or revok ed by FDA (afte r which the test may no longe r be used) . Not Available [facility] [address] [place], [address], 09/11/2024 11:19:45 09/11/19 25 09/11/2024 RESPI RATOR Y PATHO GENS PANEL symptomatic defined by cdc (Y/N/U) YES Not Available [facility] [address] [place], [address], 09/11/2024 11:19:45 09/11/19 25 09/11/2024 RESPI RATOR Y PATHO GENS PANEL symptoms-zachary e of onset 09/11 Not Available [facility] [address] [place], [address], 09/11/2024 11:19:45 09/11/19 25 09/11/2024 Gluco se [Mass /volu me] in Capil mirna blood by Gluco meter glucose [mass/volume ] in capillary blood by glucometer 90 mg/dL low: 60mg/d Lhigh: 99mg/d L GLUCO SE, POC 90 60 - 99 mg/dL [facility] Not Available Not Available 11/07/2024 11:23:02 09/11/19 25 09/11/2024 Gluco se [Mass /volu me] in Capil mirna blood by Gluco meter glucose [mass/volume ] in capillary blood by glucometer 166 mg/dL low: 60mg/d Lhigh: 99mg/d L high GLUCO SE, POC 166 (H) 60 - 99 mg/dL [facility] Not Available Not Available 11/07/2024 11:23:02 09/11/19 25 09/11/2024 Gluco se [Mass /volu me] in Capil mirna blood by Gluco meter interpretati on and review of laboratory results Abnorm al Not Available Not Available 11:23:02 09/11/19 25 09/11/2024 Respi rator y patho gens DNA and RNA panel - Nasop haryn x by EDIE with non-p robe detec tion adenovirus DNA [presence] in nasopharynx by EDIE with non-probe detection Not Detect ed text: not detect ed ADENO VIRUS Not Detec xander Not Detec xander [facility] Not Available Not Available 11/07/2024 11:23:02 09/11/19 25 09/11/2024 Respi rator y patho gens DNA and RNA panel - Nasop haryn x by EDIE with non-p robe detec tion human coronavirus 229E RNA [presence] in nasopharynx by EDIE with non-probe detection Not Detect ed text: not detect ed CORON AVIRU S 229E Not Detec xander Not Detec xander [facility] Not Available Not Available 11/07/2024 11:23:02 09/11/19 25 09/11/2024 Respi rator y patho gens DNA and RNA panel - Nasop haryn x by EDIE with non-p robe detec tion human coronavirus hku1 RNA [presence] in nasopharynx by EDIE with non-probe detection Not Detect ed text: not detect ed CORON AVIRU S HKU1 Not Detec xander Not Detec xander [facility] Not Available Not Available 11/07/2024 11:23:02 09/11/19 25 09/11/2024 Respi rator y patho gens DNA and RNA panel - Nasop haryn x by EDIE with non-p robe detec tion human coronavirus nl63 RNA [presence] in nasopharynx by EDIE with non-probe detection Not Detect ed text: not detect ed CORON AVIRU S NL63 Not Detec xander Not Detec xander [facility] Not Available Not Available 11/07/2024 11:23:02 09/11/19 25 09/11/2024 Respi rator y patho gens DNA and RNA panel - Nasop haryn x by EDIE with non-p robe detec tion human coronavirus oc43 RNA [presence] in nasopharynx by EDIE with non-probe detection Not Detect ed text: not detect ed CORON AVIRU S OC43 Not Detec xander Not Detec xander [facility] Not Available Not Available 11/07/2024 11:23:02 09/11/19 25 09/11/2024 Respi rator y patho gens DNA and RNA panel - Nasop haryn x by EDIE with non-p robe detec tion sars-cov-2 (covid-19) RNA [presence] in nasopharynx by EDIE with non-probe detection Not Detect ed text: not detect ed CORON AVIRU S (SARS -COV- 2) Not Detec xander Not Detec xander [facility] Not Available Not Available 11/07/2024 11:23:02 09/11/19 25 09/11/2024 Respi rator y patho gens DNA and RNA panel - Nasop haryn x by EDIE with non-p robe detec tion human metapneumovi rubi RNA [presence] in nasopharynx by EDIE with non-probe detection Not Detect ed text: not detect ed METAP NEUMO VIRUS (MAUNEL N) Not Detec xander Not Detec xander [facility] Not Available Not Available 11/07/2024 11:23:02 09/11/19 25 09/11/2024 Respi rator y patho gens DNA and RNA panel - Nasop haryn x by EDIE with non-p robe detec tion rhinovirus+e nterovirus RNA [presence] in nasopharynx by EDIE with non-probe detection Not Detect ed text: not detect ed RHINO /ENTE ROVIR US (MANUEL N) Not Detec xander Not Detec xander [facility] Not Available Not Available 11/07/2024 11:23:02 09/11/19 25 09/11/2024 Respi rator y patho gens DNA and RNA panel - Nasop haryn x by EDIE with non-p robe detec tion influenza virus A RNA [presence] in nasopharynx by EDIE with non-probe detection Not Detect ed text: not detect ed INFLU ARIEL A Not Detec xander Not Detec xander [facility] Not Available Not Available 11/07/2024 11:23:02 09/11/19 25 09/11/2024 Respi rator y patho gens DNA and RNA panel - Nasop haryn x by EDIE with non-p robe detec tion influenza virus B RNA [presence] in nasopharynx by EDIE with non-probe detection Not Detect ed text: not detect ed INFLU ARIEL B Not Detec xander Not Detec xander [facility] Not Available Not Available 11/07/2024 11:23:02 09/11/19 25 09/11/2024 Respi rator y patho gens DNA and RNA panel - Nasop haryn x by EDIE with non-p robe detec tion parainfluenz a virus 1 RNA [presence] in nasopharynx by EDIE with non-probe detection Not Detect ed text: not detect ed PARAI NFLUE NZA VIRUS 1 Not Detec xander Not Detec xander [facility] Not Available Not Available 11/07/2024 11:23:02 09/11/19 25 09/11/2024 Respi rator y patho gens DNA and RNA panel - Nasop haryn x by EDIE with non-p robe detec tion parainfluenz a virus 2 RNA [presence] in nasopharynx by EDIE with non-probe detection Not Detect ed text: not detect ed PARAI NFLUE NZA VIRUS 2 Not Detec xander Not Detec xander [facility] Not Available Not Available 11/07/2024 11:23:02 09/11/19 25 09/11/2024 Respi rator y patho gens DNA and RNA panel - Nasop haryn x by EDIE with non-p robe detec tion parainfluenz a virus 3 RNA [presence] in nasopharynx by EDIE with non-probe detection Not Detect ed text: not detect ed PARAI NFLUE NZA VIRUS 3 Not Detec xander Not Detec xander [facility] Not Available Not Available 11/07/2024 11:23:02 09/11/19 25 09/11/2024 Respi rator y patho gens DNA and RNA panel - Nasop haryn x by EDIE with non-p robe detec tion parainfluenz a virus 4 RNA [presence] in nasopharynx by EDIE with non-probe detection Not Detect ed text: not detect ed PARAI NFLUE NZA VIRUS 4 Not Detec xander Not Detec xander [facility] Not Available Not Available 11/07/2024 11:23:02 09/11/19 25 09/11/2024 Respi rator y patho gens DNA and RNA panel - Nasop haryn x by EDIE with non-p robe detec tion respiratory syncytial virus RNA [presence] in nasopharynx by EDIE with non-probe detection Not Detect ed text: not detect ed RESPI RATOR Y SYNCY TIAL VIRUS Not Detec xander Not Detec xander [facility] Not Available Not Available 11/07/2024 11:23:02 09/11/19 25 09/11/2024 Respi rator y patho gens DNA and RNA panel - Nasop haryn x by EDIE with non-p robe detec tion bordetella parapertussi s [id number] DNA [presence] in nasopharynx by EDIE with non-probe detection Not Detect ed text: not detect ed BORDE TELLA PARAP ERTUS SIS Not Detec xander Not Detec xander [facility] Not Available Not Available 11/07/2024 11:23:02 09/11/19 25 09/11/2024 Respi rator y patho gens DNA and RNA panel - Nasop haryn x by EDIE with non-p robe detec tion bordetella pertussis.pe rtussis toxin promoter region [presence] in nasopharynx by EDIE with non-probe detection Not Detect ed text: not detect ed BORDE TELLA PERTU SSIS Not Detec xander Not Detec xander [facility] Not Available Not Available 11/07/2024 11:23:02 09/11/19 25 09/11/2024 Respi rator y patho gens DNA and RNA panel - Nasop haryn x by EDIE with non-p robe detec tion chlamydophil a pneumoniae DNA [presence] in nasopharynx by EDIE with non-probe detection Not Detect ed text: not detect ed CHLAM YDIA PNEUM ONIAE Not Detec xander Not Detec xander [facility] Not Available Not Available 11/07/2024 11:23:02 09/11/19 25 09/11/2024 Respi rator y patho gens DNA and RNA panel - Nasop haryn x by EDIE with non-p robe detec tion mycoplasma pneumoniae DNA [presence] in nasopharynx by EDIE with non-probe detection Not Detect ed text: not detect ed MYCOP LASMA PNEUM ONIAE Not Detec xander Not Detec xander [facility] Not Available Not Available 11/07/2024 11:23:02 09/11/19 25 09/11/2024 Respi rator y patho gens DNA and RNA panel - Nasop haryn x by EDIE with non-p robe detec tion annotation comment [interpretat ion] narrative SEE BELOW TEST INFOR MATIO N SEE BELOW [facility] Not Available Not Available 11/07/2024 11:23:02 09/11/19 25 09/11/2024 Respi rator y patho gens DNA and RNA panel - Nasop haryn x by EDIE with non-p robe detec tion patient instructions SEE BELOW PATIE NT INSTR UCTIO NS SEE BELOW [facility] Not Available Not Available 11/07/2024 11:23:02 09/11/19 25 09/11/2024 Respi rator y patho gens DNA and RNA panel - Nasop haryn x by EDIE with non-p robe detec tion whether the patient has symptoms related to condition of interest YES SYMPT OMATI C DEFIN ED BY CDC YES [facility] Not Available Not Available 11/07/2024 11:23:02 09/11/19 25 09/11/2024 Respi rator y patho gens DNA and RNA panel - Nasop haryn x by EDIE with non-p robe detec tion date and time of symptom onset 09/11 SYMPT OM-ON SET 09/11 [facility] Not Available Not Available 11/07/2024 11:23:02 09/11/19 25 09/11/2024 Respi rator y patho gens DNA and RNA panel - Nasop haryn x by EDIE with non-p robe detec tion Unknown Analyte Cough and cold Not Available Not Available 11:23:02 09/11/19 25 09/11/2024 Magne sium [Mass /volu me] in Serum or Plasm a magnesium [mass/volume ] in serum or plasma 2 mg/dL low: 1.6mg/ dLhigh : 2.6mg/ dL MAGNE SIUM 2.0 1.6 - 2.6 mg/dL [facility] Not Available Not Available 11/07/2024 11:23:02 09/11/19 25 09/11/2024 Compr ehens thiago metab olic 2000 panel - Serum or Plasm a calcium [mass/volume ] in serum or plasma 8.4 mg/dL low: 8.9mg/ dLhigh : 10.6mg /dL low CALCI UM 8.4 (L) 8.9 - 10.6 mg/dL [facility] Not Available Not Available 11/07/2024 11:23:02 09/11/19 25 09/11/2024 Compr ehens thiago metab olic 2000 panel - Serum or Plasm a glucose [mass/volume ] in serum or plasma 120 mg/dL low: 74mg/d Lhigh: 100mg/ dL high GLUCO SE 120 (H) 74 - 100 mg/dL [facility] Not Available Not Available 11/07/2024 11:23:02 09/11/19 25 09/11/2024 Compr ehens thiago metab olic 2000 panel - Serum or Plasm a urea nitrogen [mass/volume ] in serum or plasma 7 mg/dL low: 8mg/dL high: 26mg/d L low BUN 7 (L) 8 - 26 mg/dL [facility] Not Available Not Available 11/07/2024 11:23:02 09/11/19 25 09/11/2024 [facility] - Serum or Plasm a creatinine [mass/volume ] in serum or plasma 0.73 mg/dL low: 0.7mg/ dLhigh : 1.3mg/ dL CREAT ININE 0.73 0.70 - 1.30 mg/dL [facility] Not Available Not Available 11/07/2024 11:23:02 09/11/19 25 09/11/2024 Compr ens thiago metab olic 1999 panel - Serum or Plasm a protein [mass/volume ] in serum or plasma 6.7 g/dL low: 6g/dLh igh: 8g/dL TOTAL PROTE IN 6.7 6.0 - 8.0 g/dL [facility] Not Available Not Available 11/07/2024 11:23:02 09/11/19 25 09/11/2024 [facility] panel - Serum or Plasm a albumin [mass/volume ] in serum or plasma by bromocresol purple (bcp) dye binding method 2.9 g/dL low: 3.4g/d Lhigh: 4.8g/d L low ALBUM IN 2.9 (L) 3.4 - 4.8 g/dL [facility] Not Available Not Available 11/07/2024 11:23:02 09/11/19 25 09/11/2024 [facility] 2000 panel - Serum or Plasm a bilirubin.to nolvia [mass/volume ] in serum or plasma 0.7 mg/dL low: 0.2mg/ dLhigh : 1.2mg/ dL BILIR UBIN, TOTAL 0.7 0.2 - 1.2 mg/dL [facility] Not Available Not Available 11/07/2024 11:23:02 09/11/19 25 09/11/2024 Compr ens thiago metab olic 2000 panel - Serum or Plasm a aspartate aminotransfe rase [enzymatic activity/vol ume] in serum or plasma by with P-5'-P 35 U/L low: 9U/Lhi gh: 43U/L AST 35 9 - 43 U/L [facility] Not Available Not Available 11/07/2024 11:23:02 09/11/19 25 09/11/2024 Compr ehens thiago metab olic 1999 panel - Serum or Plasm a alanine aminotransfe rase [enzymatic activity/vol ume] in serum or plasma by with P-5'-P 11 U/L low: 0U/Lhi gh: 45U/L ALT 11 0 - 45 U/L [facility] Not Available Not Available 11/07/2024 11:23:02 09/11/19 25 09/11/2024 Compr ehens thiago metab olic 1999 panel - Serum or Plasm a alkaline phosphatase [enzymatic activity/vol ume] in serum or plasma 165 U/L low: 40U/Lh igh: 150U/L high ALKAL INE PHOSP HATAS E 165 (H) 40 - 150 U/L [facility] Not Available Not Available 11/07/2024 11:23:02 09/11/19 25 09/11/2024 Compr ehens thiago metab olic 1999 panel - Serum or Plasm a sodium [moles/volum e] in serum or plasma 138 mmol/ L low: 136mmo l/Lhig h: 145mmo l/L SODIU M 138 136 - 145 mmol/ L [facility] Not Available Not Available 11/07/2024 11:23:02 09/11/19 25 09/11/2024 Compr ehens thiago metab olic 1999 panel - Serum or Plasm a potassium [moles/volum e] in serum or plasma 4.1 mmol/ L low: 3.5mmo l/Lhig h: 5.1mmo l/L POTAS SIUM 4.1 3.5 - 5.1 mmol/ L [facility] Not Available Not Available 11/07/2024 11:23:02 09/11/19 25 09/11/2024 Compr ehens thiago metab olic 1999 panel - Serum or Plasm a chloride [moles/volum e] in serum or plasma 110 mmol/ L low: 98mmol /Lhigh : 107mmo l/L high CHLOR ROXANNA 110 (H) 98 - 107 mmol/ L [facility] Not Available Not Available 11/07/2024 11:23:02 09/11/19 25 09/11/2024 Compr ehens thiago metab olic 2000 panel - Serum or Plasm a carbon dioxide, total [moles/volum e] in serum or plasma 20 mmol/ L low: 22mmol /Lhigh : 29mmol /L low CO2 20.0 (L) 22.0 - 29.0 mmol/ L [facility] [employer] [facility] Not Available Not Available 11/07/2024 11:23:02 09/11/19 25 09/11/2024 Compr ehens thiago metab olic 2000 panel - Serum or Plasm a glomerular filtration rate/1.73 sq M.predicted [volume rate/area] in serum, plasma or blood by creatinine-b ased formula (CKD-epi 2020) 101 text: arbitr barbra unit GFR: CKD-E PI 2020 CREAT 101 arbit rary unit [facility] [employer] [facility] Not Available Not Available 11/07/2024 11:23:02 09/11/19 25 09/11/2024 Compr ehens thiago metab olic 2000 panel - Serum or Plasm a interpretati on and review of laboratory results Abnorm al Not Available Not Available 11:23:02 09/11/19 25 09/11/2024 CBC panel - Blood by Autom ated count leukocytes [#/volume] in blood by automated count 5.66 10^3/ uL low: 410^3/ uLhigh : 1110^3 /uL WBC 5.66 4.00 - 11.00 10^3/ uL [facility] [employer] [facility] Not Available Not Available 11/07/2024 11:23:02 09/11/19 25 09/11/2024 CBC panel - Blood by Autom ated count erythrocytes [#/volume] in blood by automated count 4.78 10^6/ uL low: 4.110^ 6/uLhi gh: 5.710^ 6/uL RBC 4.78 4.10 - 5.70 10^6/ uL [facility] [employer] [facility] Not Available Not Available 11/07/2024 11:23:02 09/11/19 25 09/11/2024 CBC panel - Blood by Autom ated count hemoglobin [mass/volume ] in blood 11.8 g/dL low: 12g/dL high: 18g/dL low HGB 11.8 (L) 12.0 - 18.0 g/dL [facility] [employer] [facility] Not Available Not Available 11/07/2024 11:23:02 09/11/19 25 09/11/2024 CBC panel - Blood by Autom ated count hematocrit [volume fraction] of blood by automated count 39.9 % low: 37%hig h: 51% HCT 39.9 37.0 - 51.0 % [facility] [employer] [facility] Not Available Not Available 11/07/2024 11:23:02 09/11/19 25 09/11/2024 CBC panel - Blood by Autom ated count MCV [entitic volume] by automated count 83.5 fL low: 80fLhi gh: 100fL MCV 83.5 80.0 - 100.0 fL [facility] [employer] [facility] Not Available Not Available 11/07/2024 11:23:02 09/11/19 25 09/11/2024 CBC panel - Blood by Autom ated count MCH [entitic mass] by automated count 24.7 pg low: 27pghi gh: 33pg low MCH 24.7 (L) 27.0 - 33.0 pg [facility] [employer] [facility] Not Available Not Available 11/07/2024 11:23:02 09/11/19 25 09/11/2024 CBC panel - Blood by Autom ated count MCHC [mass/volume ] by automated count 29.6 g/dL low: 32g/dL high: 36g/dL low MCHC 29.6 (L) 32.0 - 36.0 g/dL [facility] [employer] [facility] Not Available Not Available 11/07/2024 11:23:02 09/11/19 25 09/11/2024 CBC panel - Blood by Autom ated count erythrocyte distribution width [ratio] by automated count 19.4 % low: 12%hig h: 15% high RDW 19.4 (H) 12.0 - 15.0 % [facility] Not Available Not Available 11/07/2024 11:23:02 09/11/19 25 09/11/2024 CBC panel - Blood by Autom ated count erythrocyte distribution width [entitic volume] by automated count 58.2 fL low: 36.7fL high: 46.1fL high RDW-S D 58.2 (H) 36.7 - 46.1 fL [facility] Not Available Not Available 11/07/2024 11:23:02 09/11/19 25 09/11/2024 CBC panel - Blood by Autom ated count platelets [#/volume] in blood by automated count 237 10^3/ uL low: 16122^ 3/uLhi gh: 80894^ 3/uL PLATE LET 237 140 - 400 10^3/ uL [facility] [employer] [facility] Not Available Not Available 11/07/2024 11:23:02 09/11/19 25 09/11/2024 CBC panel - Blood by Autom ated count platelet mean volume [entitic volume] in blood by automated count 10.8 fL low: 9fLhig h: 12fL MPV 10.8 9.0 - 12.0 fL [facility] [employer] [facility] Not Available Not Available 11/07/2024 11:23:02 09/11/19 25 09/11/2024 CBC panel - Blood by Autom ated count nucleated erythrocytes [#/volume] in blood by automated count 0 10^3/ uL low: 010^3/ uLhigh : 010^3/ uL # NRBC 0.00 0.00 - 0.00 10^3/ uL [facility] [employer] [facility] Not Available Not Available 11/07/2024 11:23:02 09/11/19 25 09/11/2024 CBC panel - Blood by Autom ated count nucleated erythrocytes /100 leukocytes [ratio] in blood by automated count 0 text: 0.0 - 0.0 /100 WBC % NRBC 0.00 0.0 - 0.0 /100 WBC [facility] [employer] [facility] Not Available Not Available 11/07/2024 11:23:02 09/11/19 25 09/11/2024 CBC panel - Blood by Autom ated count interpretati on and review of laboratory results Abnorm al Not Available Not Available 11:23:02 09/12/1909/12/2024 BASIC METAB OLIC PANEL calcium 8.0 mg/dL 8.9-10 .6 low Not Available [facility] [address] [place], [address], 09/12/2024 13:11:56 09/12/19 25 09/12/2024 BASIC METAB OLIC PANEL glucose 144 mg/dL 74-100 high Not Available [facility] [address] [place], [address], 09/12/2024 13:11:56 09/12/1909/12/2024 BASIC METAB OLIC PANEL BUN 5 mg/dL 8-26 low Not Available [facility] [address] [place], [address], 09/12/2024 13:11:56 09/12/19 25 09/12/2024 BASIC METAB OLIC PANEL creatinine 0.84 mg/dL 0.70-1 .30 Not Available [facility] [address] [place], [address], 09/12/2024 13:11:56 09/12/19 25 09/12/2024 BASIC METAB OLIC PANEL sodium 136 mmol/ L 136-14 5 Not Available [facility] [address] [place], [address], 09/12/2024 13:11:56 09/12/1909/12/2024 BASIC METAB OLIC PANEL potassium 3.7 mmol/ L 3.5-5. 1 Not Available [facility] [address] [place], [address], 09/12/2024 13:11:56 09/12/19 25 09/12/2024 BASIC METAB OLIC PANEL chloride 103 mmol/ L 98-107 Not Available [facility] [address] [place], [address], 09/12/2024 13:11:56 09/12/19 25 09/12/2024 BASIC METAB OLIC PANEL CO2 (carbon dioxide) 27.0 mmol/ L 22.0-2 9.0 Not Available [facility] [address] [place], [address], 09/12/2024 13:11:56 09/12/19 25 09/12/2024 BASIC METAB OLIC PANEL GFR: CKD-epi 2020 creat. 97 [arb' U] eGFR of 90 or highe r is in the rebeca l range eGFR of 60-89 may mean early -stag e kidne y disea se eGFR of 15-59 may mean kidne y disea se eGFR below 15 may mean kidne y failu re NOTE: The GFR estim ate is repor xander in ml/mi n/1.7 3 squar e meter s. Effec tive 02/02 the repor xander GFR estim ate is calcu lated using the CKD-E PI 2020 equat ion and is inten ded only for the asses sment of chron ic kidne y disea se. Not Available [facility] [address] [place], [address], 09/12/2024 13:11:56 09/12/1909/12/2024 LIPAS E lipase 15 U/L 8-78 Not Available [facility] [address] [place], [address], 09/12/2024 13:11:57 09/12/1909/12/2024 CBC W/DIF F WBC 5.46 4.00-1 1.00 Not Available [facility] [address] [place], [address], 09/12/2024 13:14:17 09/12/1909/12/2024 CBC W/DIF F RBC 4.57 4.10-5 .70 Not Available [facility] [address] [place], [address], 09/12/2024 13:14:17 09/12/1909/12/2024 CBC W/DIF F HGB 11.3 g/dL 12.0-1 8.0 low Not Available [facility] [address] [place], [address], 09/12/2024 13:14:17 09/12/19 25 09/12/2024 CBC W/DIF F HCT 36.1 % 37.0-5 1.0 low Not Available [facility] [address] [place], [address], 09/12/2024 13:14:17 09/12/19 25 09/12/2024 CBC W/DIF F MCV 79.0 fL 80.0-1 00.0 low Not Available [facility] [address] [place], [address], 09/12/2024 13:14:17 09/12/19 25 09/12/2024 CBC W/DIF F MCH 24.7 pg 27.0-3 3.0 low Not Available [facility] [address] [place], [address], 09/12/2024 13:14:17 09/12/1909/12/2024 CBC W/DIF F MCHC 31.3 g/dL 32.0-3 6.0 low Not Available [facility] [address] [place], [address], 09/12/2024 13:14:17 09/12/1909/12/2024 CBC W/DIF F RDW 19.0 % 12.0-1 5.0 high Not Available [facility] [address] [place], [address], 09/12/2024 13:14:17 09/12/19 25 09/12/2024 CBC W/DIF F RDW-SD 54.6 fL 36.7-4 6.1 high Not Available [facility] [address] [place], [address], 09/12/2024 13:14:17 09/12/19 25 09/12/2024 CBC W/DIF F platelet 248 140-40 0 Not Available [facility] [address] [place], [address], 09/12/2024 13:14:17 09/12/19 25 09/12/2024 CBC W/DIF F MPV 9.0 fL 9.0-12 .0 Not Available [facility] [address] [place], [address], 09/12/2024 13:14:17 09/12/19 25 09/12/2024 CBC W/DIF F # NRBC 0.00 0.00-0 .00 Not Available [facility] [address] [place], [address], 09/12/2024 13:14:17 09/12/19 25 09/12/2024 CBC W/DIF F % NRBC 0.00 0.0-0. 0 Not Available [facility] [address] [place], [address], 09/12/2024 13:14:17 09/12/19 25 09/12/2024 CBC W/DIF F seg 65.5 % Not Available [facility] [address] [place], [address], 09/12/2024 13:14:17 09/12/19 25 09/12/2024 CBC W/DIF F lymphocyte 16.1 % Not Available [facility] [address] [place], [address], 09/12/2024 13:14:17 09/12/19 25 09/12/2024 CBC W/DIF F monocyte 17.6 % Not Available [facility] [address] [place], [address], 09/12/2024 13:14:17 09/12/19 25 09/12/2024 CBC W/DIF F eosinophil 0.4 % Not Available [facility] [address] [place], [address], 09/12/2024 13:14:17 09/12/1909/12/2024 CBC W/DIF F basophil 0.2 % Not Available [facility] [address] [place], [address], 09/12/2024 13:14:17 09/12/1909/12/2024 CBC W/DIF F immature granulocyte 0.2 % Not Available [facility] [address] [place], [address], 09/12/2024 13:14:17 09/12/1909/12/2024 CBC W/DIF F absolute neutr 3.58 1.60-7 .70 Not Available [facility] [address] [place], [address], 09/12/2024 13:14:17 09/12/1909/12/2024 CBC W/DIF F absolute lymph 0.88 1.00-4 .90 low Not Available [facility] [address] [place], [address], 09/12/2024 13:14:17 09/12/1909/12/2024 CBC W/DIF F absolute mono 0.96 0.00-1 .10 Not Available [facility] [address] [place], [address], 09/12/2024 13:14:17 09/12/1909/12/2024 CBC W/DIF F absolute eos 0.02 0.00-0 .50 Not Available [facility] [address] [place], [address], 09/12/2024 13:14:17 09/12/1909/12/2024 CBC W/DIF F absolute baso 0.01 0.00-0 .20 Not Available [facility] [address] [place], [address], 09/12/2024 13:14:17 09/12/19 25 09/12/2024 CBC W/DIF F absolute immature granulocyte 0.01 0.00-0 .09 Not Available [facility] [address] [place], [address], 09/12/2024 13:14:17 09/12/19 25 09/12/2024 BLOOD GASES , ARTER IAL pH, arterial 7.39 [pH] 7.35-7 .45 Not Available [facility] [address] [place], [address], 09/12/2024 19:56:47 09/12/19 25 09/12/2024 BLOOD GASES , ARTER IAL pCO2, arterial 43 mm[hg ] 35-45 Not Available [facility] [address] [place], [address], 09/12/2024 19:56:47 09/12/19 25 09/12/2024 BLOOD GASES , ARTER IAL pO2, arterial 54 mm[hg ] 80-100 critical low Not Available [facility] [address] [place], [address], 09/12/2024 19:56:47 09/12/1909/12/2024 BLOOD GASES , ARTER IAL HCO3, arterial 26 mmol/ L Not Available [facility] [address] [place], [address], 09/12/2024 19:56:47 09/12/1909/12/2024 BLOOD GASES , ARTER IAL T.co2, arterial 27 mmol/ L Not Available [facility] [address] [place], [address], 09/12/2024 19:56:47 09/12/1909/12/2024 BLOOD GASES , ARTER IAL base excess/BE, arterial 0 mmol/ L Not Available [facility] [address] [place], [address], 09/12/2024 19:56:47 09/12/19 25 09/12/2024 BLOOD GASES , ARTER IAL O2 sat, arterial 86.5 % 92.0-9 8.5 low Not Available [facility] [address] [place], [address], 09/12/2024 19:56:47 09/12/19 25 09/12/2024 BLOOD GASES , ARTER IAL O2 rate, arterial room air Previ ous value was .do not use, verif ied by at 18:28 on 09/12. Not Available [facility] [address] [place], [address], 09/12/2024 19:56:47 09/12/19 25 09/12/2024 BLOOD GASES , ARTER IAL site, arterial RT RAD Not Available [facility] [address] [place], [address], 09/12/2024 19:56:47 09/12/19 25 09/12/2024 BLOOD GASES , ARTER IAL burton test POSITI VE Not Available [facility] [address] [place], [address], 09/12/2024 19:56:47 09/12/19 25 09/12/2024 Gluco se [Mass /volu me] in Capil mirna blood by Gluco meter glucose [mass/volume ] in capillary blood by glucometer 155 mg/dL low: 60mg/d Lhigh: 99mg/d L high GLUCO SE, POC 155 (H) 60 - 99 mg/dL [facility] Not Available Not Available 11/07/2024 11:23:03 09/12/19 25 09/12/2024 Gluco se [Mass /volu me] in Capil mirna blood by Gluco meter interpretati on and review of laboratory results Abnorm al Not Available Not Available 11:23:03 09/12/19 25 09/12/2024 GLUCO SE, POC glucose, POC 155 mg/dL 60-99 high Not Available [facility] [address] [place], [address], 09/12/2024 21:34:03 09/12/19 25 09/12/2024 Gluco se [Mass /volu me] in Capil mirna blood by Gluco meter glucose [mass/volume ] in capillary blood by glucometer 140 mg/dL low: 60mg/d Lhigh: 99mg/d L high GLUCO SE, POC 140 (H) 60 - 99 mg/dL [facility] Not Available Not Available 11/07/2024 11:23:03 09/12/19 25 09/12/2024 Gluco se [Mass /volu me] in Capil mirna blood by Gluco meter interpretati on and review of laboratory results Abnorm al Not Available Not Available 11:23:03 09/12/19 25 09/12/2024 GLUCO SE, POC glucose, POC 140 mg/dL 60-99 high Not Available [facility] [address] [place], [address], 09/12/2024 17:51:26 09/12/19 25 09/12/2024 Lipas e [Enzy matic activ ity/v olume ] in Serum or Plasm a lipase [enzymatic activity/vol ume] in serum or plasma 15 U/L low: 8U/Lhi gh: 78U/L LIPAS E 15 8 - 78 U/L [facility] [employer] [facility] AT[facility] Not Available Not Available 11/07/2024 11:23:03 09/12/19 25 09/12/2024 Basic metab olic 2000 panel - Serum or Plasm a calcium [mass/volume ] in serum or plasma 8 mg/dL low: 8.9mg/ dLhigh : 10.6mg /dL low CALCI UM 8.0 (L) 8.9 - 10.6 mg/dL [facility] Not Available Not Available 11/07/2024 11:23:03 09/12/19 25 09/12/2024 Basic metab olic 2000 panel - Serum or Plasm a glucose [mass/volume ] in serum or plasma 144 mg/dL low: 74mg/d Lhigh: 100mg/ dL high GLUCO SE 144 (H) 74 - 100 mg/dL [facility] Not Available Not Available 11/07/2024 11:23:03 09/12/19 25 09/12/2024 Basic metab olic 2000 panel - Serum or Plasm a urea nitrogen [mass/volume ] in serum or plasma 5 mg/dL low: 8mg/dL high: 26mg/d L low BUN 5 (L) 8 - 26 mg/dL [facility] AT[facility] Not Available Not Available 11/07/2024 11:23:03 09/12/19 25 09/12/2024 Basic metab olic 1999 panel - Serum or Plasm a creatinine [mass/volume ] in serum or plasma 0.84 mg/dL low: 0.7mg/ dLhigh : 1.3mg/ dL CREAT ININE 0.84 0.70 - 1.30 mg/dL [facility] AT[facility] Not Available Not Available 11/07/2024 11:23:03 09/12/19 25 09/12/2024 Basic metab olic 2000 panel - Serum or Plasm a sodium [moles/volum e] in serum or plasma 136 mmol/ L low: 136mmo l/Lhig h: 145mmo l/L SODIU M 136 136 - 145 mmol/ L [facility] AT[facility] Not Available Not Available 11/07/2024 11:23:03 09/12/19 25 09/12/2024 Basic metab olic 1999 panel - Serum or Plasm a potassium [moles/volum e] in serum or plasma 3.7 mmol/ L low: 3.5mmo l/Lhig h: 5.1mmo l/L POTAS SIUM 3.7 3.5 - 5.1 mmol/ L [facility] AT[facility] Not Available Not Available 11/07/2024 11:23:03 09/12/19 25 09/12/2024 Basic metab olic 2000 panel - Serum or Plasm a chloride [moles/volum e] in serum or plasma 103 mmol/ L low: 98mmol /Lhigh : 107mmo l/L CHLOR ROXANNA 103 98 - 107 mmol/ L [facility] AT[facility] Not Available Not Available 11/07/2024 11:23:03 09/12/19 25 09/12/2024 Basic metab olic 2000 panel - Serum or Plasm a carbon dioxide, total [moles/volum e] in serum or plasma 27 mmol/ L low: 22mmol /Lhigh : 29mmol /L CO2 27.0 22.0 - 29.0 mmol/ L [facility] [employer] ATORY Not Available Not Available 11/07/2024 11:23:03 09/12/19 25 09/12/2024 Basic metab olic 2000 panel - Serum or Plasm a glomerular filtration rate/1.73 sq M.predicted [volume rate/area] in serum, plasma or blood by creatinine-b ased formula (CKD-epi 2020) 97 text: leodan belle unit GFR: CKD-E PI 2020 CREAT 97 arbit rary unit [facility] [employer] ATORY Not Available Not Available 11/07/2024 11:23:03 09/12/19 25 09/12/2024 Basic metab olic 2000 panel - Serum or Plasm a interpretati on and review of laboratory results Abnorm al Not Available Not Available 11:23:03 09/12/19 25 09/12/2024 CBC W Diffe renti al panel , metho d unspe cifie d - Blood leukocytes [#/volume] in blood by automated count 5.46 10^3/ uL low: 410^3/ uLhigh : 1110^3 /uL WBC 5.46 4.00 - 11.00 10^3/ uL [facility] [employer] ATORY Not Available Not Available 11/07/2024 11:23:03 09/12/19 25 09/12/2024 CBC W Diffe renti al panel , metho d unspe cifie d - Blood erythrocytes [#/volume] in blood by automated count 4.57 10^6/ uL low: 4.110^ 6/uLhi gh: 5.710^ 6/uL RBC 4.57 4.10 - 5.70 10^6/ uL [facility] [employer] ATORY Not Available Not Available 11/07/2024 11:23:03 09/12/19 25 09/12/2024 CBC W Diffe renti al panel , metho d unspe cifie d - Blood hemoglobin [mass/volume ] in blood 11.3 g/dL low: 12g/dL high: 18g/dL low HGB 11.3 (L) 12.0 - 18.0 g/dL [facility] Not Available Not Available 11/07/2024 11:23:03 09/12/19 25 09/12/2024 CBC W Diffe sky al panel , metho d unspe cifie d - Blood hematocrit [volume fraction] of blood by automated count 36.1 % low: 37%hig h: 51% low HCT 36.1 (L) 37.0 - 51.0 % [facility] [employer] AT[facility] Not Available Not Available 11/07/2024 11:23:03 09/12/19 25 09/12/2024 CBC W Diffe sky al panel , metho d unspe cifie d - Blood MCV [entitic volume] by automated count 79 fL low: 80fLhi gh: 100fL low MCV 79.0 (L) 80.0 - 100.0 fL [facility] Not Available Not Available 11/07/2024 11:23:03 09/12/19 25 09/12/2024 CBC W Diffe sky al panel , metho d unspe cifie d - Blood MCH [entitic mass] by automated count 24.7 pg low: 27pghi gh: 33pg low MCH 24.7 (L) 27.0 - 33.0 pg [facility] Not Available Not Available 11/07/2024 11:23:03 09/12/19 25 09/12/2024 CBC W Diffe luis armandoti al panel , metho d unspe cifie d - Blood MCHC [mass/volume ] by automated count 31.3 g/dL low: 32g/dL high: 36g/dL low MCHC 31.3 (L) 32.0 - 36.0 g/dL [facility] [employer] AT[facility] Not Available Not Available 11/07/2024 11:23:03 09/12/19 09/12/2024 CBC W Diffhossein swanson al panel , metho d unspe cifie d - Blood erythrocyte distribution width [ratio] by automated count 19 % low: 12%hig h: 15% high RDW 19.0 (H) 12.0 - 15.0 % [facility] [employer] ATORY Not Available Not Available 11/07/2024 11:23:03 09/12/1909/12/2024 CBC W Sharon swanson al panel , metho d unspe cifie d - Blood erythrocyte distribution width [entitic volume] by automated count 54.6 fL low: 36.7fL high: 46.1fL high RDW-S D 54.6 (H) 36.7 - 46.1 fL [facility] [employer] ATORY Not Available Not Available 11/07/2024 11:23:03 09/12/1909/12/2024 CBC W Sharon swanson al panel , metho d unspe cifie d - Blood platelets [#/volume] in blood by automated count 248 10^3/ uL low: 92480^ 3/uLhi gh: 87012^ 3/uL PLATE LET 248 140 - 400 10^3/ uL [facility] [employer] ATORY Not Available Not Available 11/07/2024 11:23:03 09/12/1909/12/2024 CBC W Sharon swanson al panel , metho d unspe cifie d - Blood platelet mean volume [entitic volume] in blood by automated count 9 fL low: 9fLhig h: 12fL MPV 9.0 9.0 - 12.0 fL [facility] [employer] ATORY Not Available Not Available 11/07/2024 11:23:03 09/12/19 25 09/12/2024 CBC W Sharon swanson al panel , metho d unspe cifie d - Blood nucleated erythrocytes [#/volume] in blood by automated count 0 10^3/ uL low: 010^3/ uLhigh : 010^3/ uL # NRBC 0.00 0.00 - 0.00 10^3/ uL [facility] [employer] AT[facility] Not Available Not Available 11/07/2024 11:23:03 09/12/19 25 09/12/2024 CBC W Sharon swanson al panel , metho d unspe cifie d - Blood nucleated erythrocytes /100 leukocytes [ratio] in blood by automated count 0 text: 0.0 - 0.0 /100 WBC % NRBC 0.00 0.0 - 0.0 /100 WBC [facility] Not Available Not Available 11/07/2024 11:23:03 09/12/19 25 09/12/2024 CBC W Sharon swanson al panel , metho d unspe cifie d - Blood neutrophils/ 100 leukocytes in blood by automated count 65.5 % SEG 65.5 % [facility] [employer] AT[facility] Not Available Not Available 11/07/2024 11:23:03 09/12/19 25 09/12/2024 CBC W Sharon swanson al panel , metho d unspe cifie d - Blood lymphocytes/ 100 leukocytes in blood by automated count 16.1 % LYMPH OCYTE 16.1 % [facility] Not Available Not Available 11/07/2024 11:23:03 09/12/19 25 09/12/2024 CBC W Sharon swanson al panel , metho d unspe cifie d - Blood monocytes/10 0 leukocytes in blood by automated count 17.6 % MONOC YTE 17.6 % [facility] Not Available Not Available 11/07/2024 11:23:03 09/12/19 25 09/12/2024 CBC W Sharon swanson al panel , metho d unspe cifie d - Blood eosinophils/ 100 leukocytes in blood by manual count 0.4 % EOSIN OPHIL 0.4 % [facility] Not Available Not Available 11/07/2024 11:23:03 09/12/19 25 09/12/2024 CBC W Sharon swanson al panel , metho d unspe cifie d - Blood basophils/10 0 leukocytes in blood by automated count 0.2 % BASOP HIL 0.2 % [facility] Not Available Not Available 11/07/2024 11:23:03 09/12/19 25 09/12/2024 CBC W Sharon swanson al panel , metho d unspe cifie d - Blood immature granulocytes [#/volume] in blood by automated count 0.2 % IMMAT URE GRANU LOCYT E 0.2 % [facility] Not Available Not Available 11/07/2024 11:23:03 09/12/19 25 09/12/2024 CBC W Sharon swanson al panel , metho d unspe cifie d - Blood neutrophils [#/volume] in blood by automated count 3.58 10^3/ uL low: 1.610^ 3/uLhi gh: 7.710^ 3/uL ABSOL VENETIE IRA NEUTR 3.58 1.60 - 7.70 10^3/ uL [facility] Not Available Not Available 11/07/2024 11:23:03 09/12/19 25 09/12/2024 CBC W Sharon swanson al panel , metho d unspe cifie d - Blood lymphocytes [#/volume] in blood by automated count 0.88 10^3/ uL low: 110^3/ uLhigh : 4.910^ 3/uL low ABSOL VENETIE IRA LYMPH 0.88 (L) 1.00 - 4.90 10^3/ uL [facility] Not Available Not Available 11/07/2024 11:23:03 09/12/19 25 09/12/2024 CBC W Sharon swanson al panel , metho d unspe cifie d - Blood monocytes [#/volume] in blood by automated count 0.96 10^3/ uL low: 010^3/ uLhigh : 1.110^ 3/uL ABSOL VENETIE IRA MONO 0.96 0.00 - 1.10 10^3/ uL [facility] Not Available Not Available 11/07/2024 11:23:03 09/12/19 25 09/12/2024 CBC W Diffe sky al panel , metho d unspe cifie d - Blood eosinophils [#/volume] in blood by automated count 0.02 10^3/ uL low: 010^3/ uLhigh : 0.510^ 3/uL ABSOL VENETIE IRA EOS 0.02 0.00 - 0.50 10^3/ uL [facility] [employer] AT[facility] Not Available Not Available 11/07/2024 11:23:03 09/12/19 25 09/12/2024 CBC W Diffe renti al panel , metho d unspe cifie d - Blood basophils [#/volume] in blood by automated count 0.01 10^3/ uL low: 010^3/ uLhigh : 0.210^ 3/uL ABSOL VENETIE IRA BASO 0.01 0.00 - 0.20 10^3/ uL [facility] Not Available Not Available 11/07/2024 11:23:03 09/12/19 25 09/12/2024 CBC W Diffe renti al panel , metho d unspe cifie d - Blood immature granulocytes [#/volume] in blood by automated count 0.01 10^3/ uL low: 010^3/ uLhigh : 0.0910 ^3/uL ABSOL VENETIE IRA IMMAT URE GRANU LOCYT E 0.01 0.00 - 0.09 10^3/ uL [facility] [employer] [facility] Not Available Not Available 11/07/2024 11:23:03 09/12/19 25 09/12/2024 CBC W Diffe renti al panel , metho d unspe cifie d - Blood interpretati on and review of laboratory results Abnorm al Not Available Not Available 11:23:03 09/12/19 25 09/12/2024 Gluco se [Mass /volu me] in Capil mirna blood by Gluco meter glucose [mass/volume ] in capillary blood by glucometer 134 mg/dL low: 60mg/d Lhigh: 99mg/d L high GLUCO SE, POC 134 (H) 60 - 99 mg/dL [facility] [employer] AT[facility] Not Available Not Available 11/07/2024 11:23:03 09/12/19 25 09/12/2024 Gluco se [Mass /volu me] in Capil mirna blood by Gluco meter interpretati on and review of laboratory results Abnorm al Not Available Not Available 11:23:03 09/12/19 25 09/12/2024 GLUCO SE, POC glucose, POC 134 mg/dL 60-99 high Not Available [facility] [address] [place], [address], 09/12/2024 12:04:56 09/12/19 25 09/12/2024 Gluco se [Mass /volu me] in Capil mirna blood by Gluco meter glucose [mass/volume ] in capillary blood by glucometer 97 mg/dL low: 60mg/d Lhigh: 99mg/d L GLUCO SE, POC 97 60 - 99 mg/dL [facility] [employer] [facility] Not Available Not Available 11/07/2024 11:23:02 09/12/19 25 09/12/2024 GLUCO SE, POC glucose, POC 97 mg/dL 60-99 Not Available [facility] [address] [place], [address], 09/12/2024 08:05:51 09/13/19 25 09/13/2024 Gluco se [Mass /volu me] in Capil mirna blood by Gluco meter glucose [mass/volume ] in capillary blood by glucometer 142 mg/dL low: 60mg/d Lhigh: 99mg/d L high GLUCO SE, POC 142 (H) 60 - 99 mg/dL [facility] [employer] Not Available Not Available 11/07/2024 11:23:03 09/13/19 25 09/13/2024 Gluco se [Mass /volu me] in Capil mirna blood by Gluco meter interpretati on and review of laboratory results Abnorm al Not Available Not Available 11:23:03 09/13/19 25 09/13/2024 GLUCO SE, POC glucose, POC 142 mg/dL 60-99 high Not Available [facility] [address] [place], [address], 09/13/2024 12:13:38 09/13/19 25 09/13/2024 Gluco se [Mass /volu me] in Capil mirna blood by Gluco meter glucose [mass/volume ] in capillary blood by glucometer 113 mg/dL low: 60mg/d Lhigh: 99mg/d L high GLUCO SE, POC 113 (H) 60 - 99 mg/dL [facility] [employer] ATORY Not Available Not Available 11/07/2024 11:23:03 09/13/19 25 09/13/2024 Gluco se [Mass /volu me] in Capil mirna blood by Gluco meter interpretati on and review of laboratory results Abnorm al Not Available Not Available 11:23:03 09/13/19 25 09/13/2024 GLUCO SE, POC glucose, POC 113 mg/dL 60-99 high Not Available [facility] [address] [place], [address], 09/13/2024 08:15:51 11/05/19 25 11/04/2024 Urina lysis compl ete panel - Urine color of urine YELLOW text: colorl ess-ye llow COLOR YELLO W COLOR LESS- YELLO W [facility] [employer] ATORY Not Available Not Available 11/07/2024 11:24:01 11/05/19 25 11/04/2024 Urina lysis compl ete panel - Urine appearance of urine CLEAR APPEA JOSE CLEAR [facility] [employer] ATORY Not Available Not Available 11/07/2024 11:24:01 11/05/19 25 11/04/2024 Urina lysis compl ete panel - Urine specific gravity of urine by test strip 1.02 text: 1.003 - 1.035 arbitr barbra unit SP. GRAVI TY 1.020 1.003 - 1.035 arbit rary unit [facility] [employer] ATORY Not Available Not Available 11/07/2024 11:24:01 11/05/19 25 11/04/2024 Urina lysis compl ete panel - Urine pH of urine by test strip 8.5 pH PH 8.5 pH [facility] [employer] ATORY Not Available Not Available 11/07/2024 11:24:01 11/05/19 25 11/04/2024 Urina lysis compl ete panel - Urine protein [mass/volume ] in urine by test strip TRACE text: negati ve mg/dL abnormal PROTE IN TRACE (A) NEGAT THIAGO mg/dL [facility] Not Available Not Available 11/07/2024 11:24:01 11/05/19 25 11/04/2024 Urina lysis compl ete panel - Urine glucose [mass/volume ] in urine by test strip NEGATI VE text: negati ve mg/dL GLUCO SE NEGAT THIAGO NEGAT THIAGO mg/dL [facility] Not Available Not Available 11/07/2024 11:24:01 11/05/19 25 11/04/2024 Urina lysis compl ete panel - Urine ketones [mass/volume ] in urine by test strip 15 mg/dL text: negati ve abnormal KETON E 15 (A) NEGAT THIAGO mg/dL [facility] Not Available Not Available 11/07/2024 11:24:01 11/05/19 25 11/04/2024 Urina lysis compl ete panel - Urine bilirubin.to nolvia [presence] in urine by test strip SMALL text: negati ve abnormal BILIR UBIN SMALL (A) NEGAT THIAGO [facility] Not Available Not Available 11/07/2024 11:24:01 11/05/19 25 11/04/2024 Urina lysis compl ete panel - Urine hemoglobin [presence] in urine by test strip NEGATI VE text: negati ve BLOOD NEGAT THIAGO NEGAT THIAGO [facility] Not Available Not Available 11/07/2024 11:24:01 11/05/19 25 11/04/2024 Urina lysis compl ete panel - Urine nitrite [presence] in urine by test strip NEGATI VE text: negati ve NITRI TE NEGAT THIAGO NEGAT THIAGO [facility] Not Available Not Available 11/07/2024 11:24:01 11/05/19 25 11/04/2024 Urina lysis compl ete panel - Urine urobilinogen [units/volum e] in urine by test strip 4 mg/dL abnormal UROBI LINOG EN 4.0 (A) mg/dL [facility] Not Available Not Available 11/07/2024 11:24:01 11/05/19 25 11/04/2024 Urina lysis compl ete panel - Urine leukocyte esterase [presence] in urine by test strip NEGATI VE text: negati ve LEUKO CYTE ARNIE ASE NEGAT THIAGO NEGAT THIAGO [facility] Not Available Not Available 11/07/2024 11:24:01 11/05/19 25 11/04/2024 Urina lysis compl ete panel - Urine erythrocytes [#/area] in urine sediment by microscopy high power field text: 0-2,3- 5 /hpf RBC-M ANUAL EXAM 2-4 0-2,3 -5 /HPF [facility] Not Available Not Available 11/07/2024 11:24:01 11/05/19 25 11/04/2024 Urina lysis compl ete panel - Urine WBC-manual exam text: 0-2,3- 5 /hpf WBC-M ANUAL EXAM 3-5 0-2,3 -5 /HPF [facility] [employer] AT[facility] Not Available Not Available 11/07/2024 11:24:01 11/05/19 25 11/04/2024 Urina lysis compl ete panel - Urine squamous epi-manual exam FEW text: none-m oderat e /lpf SQUAM OUS EPI-M ANUAL EXAM FEW NONE- MODER ATE /LPF [facility] [employer] [facility] AT[facility] Not Available Not Available 11/07/2024 11:24:01 11/05/19 25 11/04/2024 Urina lysis compl ete panel - Urine crystals.eleuterio rphous [presence] in urine sediment by light microscopy PRESEN T text: none seen abnormal AMORP HOUS CRYST ALS PRESE NT (A) NONE SEEN [facility] [employer] [facility] Not Available Not Available 11/07/2024 11:24:01 11/05/19 25 11/04/2024 Urina lysis compl ete panel - Urine mucus [presence] in urine sediment by light microscopy PRESEN T text: none seen abnormal MUCUS PRESE NT (A) NONE SEEN [facility] [employer] Not Available Not Available 11/07/2024 11:24:01 11/05/19 25 11/04/2024 Urina lysis compl ete panel - Urine bacteria FEW text: none-f ew BACTE KO FEW NONE- FEW [facility] [employer] AT[facility] Not Available Not Available 11/07/2024 11:24:01 11/05/19 25 11/04/2024 Urina lysis compl ete panel - Urine interpretati on and review of laboratory results Abnorm al Not Available Not Available 11:24:01 11/05/19 25 11/04/2024 CBC W Diffe renti al panel , metho d unspe cifie d - Blood leukocytes [#/volume] in blood by automated count 8.12 10^3/ uL low: 410^3/ uLhigh : 1110^3 /uL WBC 8.12 4.00 - 11.00 10^3/ uL [facility] [employer] [facility] Not Available Not Available 11/07/2024 11:24:01 11/05/19 25 11/04/2024 CBC W Sharon swanson al panel , metho d unspe cifie d - Blood erythrocytes [#/volume] in blood by automated count 5.17 10^6/ uL low: 4.110^ 6/uLhi gh: 5.710^ 6/uL RBC 5.17 4.10 - 5.70 10^6/ uL [facility] [employer] AT[facility] Not Available Not Available 11/07/2024 11:24:01 11/05/19 25 11/04/2024 CBC W Diffe luis armandoti al panel , metho d unspe cifie d - Blood hemoglobin [mass/volume ] in blood 12.6 g/dL low: 12g/dL high: 18g/dL HGB 12.6 12.0 - 18.0 g/dL [facility] [employer] AT[facility] Not Available Not Available 11/07/2024 11:24:01 11/05/19 25 11/04/2024 CBC W Diffe sky al panel , metho d unspe cifie d - Blood hematocrit [volume fraction] of blood by automated count 40.3 % low: 37%hig h: 51% HCT 40.3 37.0 - 51.0 % [facility] Not Available Not Available 11/07/2024 11:24:01 11/05/19 25 11/04/2024 CBC W Diffe renti al panel , metho d unspe cifie d - Blood MCV [entitic volume] by automated count 77.9 fL low: 80fLhi gh: 100fL low MCV 77.9 (L) 80.0 - 100.0 fL [facility] Not Available Not Available 11/07/2024 11:24:01 11/05/19 25 11/04/2024 CBC W Diffe renti al panel , metho d unspe cifie d - Blood MCH [entitic mass] by automated count 24.4 pg low: 27pghi gh: 33pg low MCH 24.4 (L) 27.0 - 33.0 pg [facility] Not Available Not Available 11/07/2024 11:24:01 11/05/19 25 11/04/2024 CBC W Diffe luis armandoti al panel , metho d unspe cifie d - Blood MCHC [mass/volume ] by automated count 31.3 g/dL low: 32g/dL high: 36g/dL low MCHC 31.3 (L) 32.0 - 36.0 g/dL [facility] Not Available Not Available 11/07/2024 11:24:01 11/05/19 25 11/04/2024 CBC W Diffe renti al panel , metho d unspe cifie d - Blood erythrocyte distribution width [ratio] by automated count 18.7 % low: 12%hig h: 15% high RDW 18.7 (H) 12.0 - 15.0 % [facility] Not Available Not Available 11/07/2024 11:24:01 11/05/19 25 11/04/2024 CBC W Diffe renti al panel , metho d unspe cifie d - Blood erythrocyte distribution width [entitic volume] by automated count 51.7 fL low: 36.7fL high: 46.1fL high RDW-S D 51.7 (H) 36.7 - 46.1 fL [facility] Not Available Not Available 11/07/2024 11:24:01 11/05/19 25 11/04/2024 CBC W Sharon swanson al panel , metho d unspe cifie d - Blood platelets [#/volume] in blood by automated count 350 10^3/ uL low: 54329^ 3/uLhi gh: 17976^ 3/uL PLATE LET 350 140 - 400 10^3/ uL [facility] Not Available Not Available 11/07/2024 11:24:01 11/05/19 25 11/04/2024 CBC W Uriahe sky al panel , metho d unspe cifie d - Blood platelet mean volume [entitic volume] in blood by automated count 9.2 fL low: 9fLhig h: 12fL MPV 9.2 9.0 - 12.0 fL [facility] Not Available Not Available 11/07/2024 11:24:01 11/05/19 25 11/04/2024 CBC W Sharon swanson al panel , metho d unspe cifie d - Blood nucleated erythrocytes [#/volume] in blood by automated count 0 10^3/ uL low: 010^3/ uLhigh : 010^3/ uL # NRBC 0.00 0.00 - 0.00 10^3/ uL [facility] [facility] Not Available Not Available 11/07/2024 11:24:01 11/05/19 25 11/04/2024 CBC W Sharon swanson al panel , metho d unspe cifie d - Blood nucleated erythrocytes /100 leukocytes [ratio] in blood by automated count 0 text: 0.0 - 0.0 /100 WBC % NRBC 0.00 0.0 - 0.0 /100 WBC [facility] [facility] [employer] AT[facility] Not Available Not Available 11/07/2024 11:24:01 11/05/19 25 11/04/2024 CBC W Sharon swanson al panel , metho d unspe cifie d - Blood neutrophils/ 100 leukocytes in blood by automated count 74.2 % SEG 74.2 % [facility] [employer] [facility] Not Available Not Available 11/07/2024 11:24:01 11/05/19 25 11/04/2024 CBC W Diffe renti al panel , metho d unspe cifie d - Blood lymphocytes/ 100 leukocytes in blood by automated count 17.1 % LYMPH OCYTE 17.1 % [facility] Not Available Not Available 11/07/2024 11:24:01 11/05/19 25 11/04/2024 CBC W Diffe renti al panel , metho d unspe cifie d - Blood monocytes/10 0 leukocytes in blood by automated count 7.5 % MONOC YTE 7.5 % [facility] Not Available Not Available 11/07/2024 11:24:01 11/05/19 25 11/04/2024 CBC W Diffe renti al panel , metho d unspe cifie d - Blood eosinophils/ 100 leukocytes in blood by manual count 0.6 % EOSIN OPHIL 0.6 % [facility] Not Available Not Available 11/07/2024 11:24:01 11/05/19 25 11/04/2024 CBC W Diffe renti al panel , metho d unspe cifie d - Blood basophils/10 0 leukocytes in blood by automated count 0.2 % BASOP HIL 0.2 % [facility] Not Available Not Available 11/07/2024 11:24:01 11/05/19 25 11/04/2024 CBC W Diffe renti al panel , metho d unspe cifie d - Blood immature granulocytes [#/volume] in blood by automated count 0.4 % IMMAT URE GRANU LOCYT E 0.4 % [facility] Not Available Not Available 11/07/2024 11:24:01 11/05/19 25 11/04/2024 CBC W Diffe renti al panel , metho d unspe cifie d - Blood neutrophils [#/volume] in blood by automated count 6.02 10^3/ uL low: 1.610^ 3/uLhi gh: 7.710^ 3/uL ABSOL VENETIE IRA NEUTR 6.02 1.60 - 7.70 10^3/ uL [facility] Not Available Not Available 11/07/2024 11:24:01 11/05/19 25 11/04/2024 CBC W Diffe renti al panel , metho d unspe cifie d - Blood lymphocytes [#/volume] in blood by automated count 1.39 10^3/ uL low: 110^3/ uLhigh : 4.910^ 3/uL ABSOL VENETIE IRA LYMPH 1.39 1.00 - 4.90 10^3/ uL [facility] [employer] [facility] Not Available Not Available 11/07/2024 11:24:01 11/05/19 25 11/04/2024 CBC W Diffe renti al panel , metho d unspe cifie d - Blood monocytes [#/volume] in blood by automated count 0.61 10^3/ uL low: 010^3/ uLhigh : 1.110^ 3/uL ABSOL VENETIE IRA MONO 0.61 0.00 - 1.10 10^3/ uL [facility] Not Available Not Available 11/07/2024 11:24:01 11/05/19 25 11/04/2024 CBC W Diffe renti al panel , metho d unspe cifie d - Blood eosinophils [#/volume] in blood by automated count 0.05 10^3/ uL low: 010^3/ uLhigh : 0.510^ 3/uL ABSOL VENETIE IRA EOS 0.05 0.00 - 0.50 10^3/ uL [facility] Not Available Not Available 11/07/2024 11:24:01 11/05/19 25 11/04/2024 CBC W Diffe renti al panel , metho d unspe cifie d - Blood basophils [#/volume] in blood by automated count 0.02 10^3/ uL low: 010^3/ uLhigh : 0.210^ 3/uL ABSOL VENETIE IRA BASO 0.02 0.00 - 0.20 10^3/ uL [facility] Not Available Not Available 11/07/2024 11:24:01 11/05/19 25 11/04/2024 CBC W Diffe renti al panel , metho d unspe cifie d - Blood immature granulocytes [#/volume] in blood by automated count 0.03 10^3/ uL low: 010^3/ uLhigh : 0.0910 ^3/uL ABSOL VENETIE IRA IMMAT URE GRANU LOCYT E 0.03 0.00 - 0.09 10^3/ uL [facility] [employer] AT[facility] Not Available Not Available 11/07/2024 11:24:01 11/05/19 25 11/04/2024 CBC W Diffe renti al panel , metho d unspe cifie d - Blood interpretati on and review of laboratory results Abnorm al Not Available Not Available 11:24:01 11/05/19 25 11/04/2024 Compr ehens thiago metab olic 1999 panel - Serum or Plasm a calcium [mass/volume ] in serum or plasma 9.4 mg/dL low: 8.9mg/ dLhigh : 10.6mg /dL CALCI UM 9.4 8.9 - 10.6 mg/dL [facility] [employer] [facility] Not Available Not Available 11/07/2024 11:24:01 11/05/19 25 11/04/2024 Compr ehens thiago metab olic 1999 panel - Serum or Plasm a glucose [mass/volume ] in serum or plasma 137 mg/dL low: 74mg/d Lhigh: 100mg/ dL high GLUCO SE 137 (H) 74 - 100 mg/dL [facility] [employer] [facility] Not Available Not Available 11/07/2024 11:24:01 11/05/19 25 11/04/2024 Compr ehens thiago metab olic 2000 panel - Serum or Plasm a urea nitrogen [mass/volume ] in serum or plasma 9 mg/dL low: 8mg/dL high: 26mg/d L BUN 9 8 - 26 mg/dL [facility] [employer] AT[facility] Not Available Not Available 11/07/2024 11:24:01 11/05/19 25 11/04/2024 Compr ehens thiago metab olic 2000 panel - Serum or Plasm a creatinine [mass/volume ] in serum or plasma 0.86 mg/dL low: 0.7mg/ dLhigh : 1.3mg/ dL CREAT ININE 0.86 0.70 - 1.30 mg/dL [facility] Not Available Not Available 11/07/2024 11:24:01 11/05/19 25 11/04/2024 Compr ehens thiago metab olic 2000 panel - Serum or Plasm a protein [mass/volume ] in serum or plasma 7.8 g/dL low: 6g/dLh igh: 8g/dL TOTAL PROTE IN 7.8 6.0 - 8.0 g/dL [facility] Not Available Not Available 11/07/2024 11:24:01 11/05/19 25 11/04/2024 Compr ehens thiago metab olic 2000 panel - Serum or Plasm a albumin [mass/volume ] in serum or plasma by bromocresol purple (bcp) dye binding method 3.5 g/dL low: 3.4g/d Lhigh: 4.8g/d L ALBUM IN 3.5 3.4 - 4.8 g/dL [facility] Not Available Not Available 11/07/2024 11:24:01 11/05/19 25 11/04/2024 Compr ehens thiago metab olic 2000 panel - Serum or Plasm a bilirubin.to nolvia [mass/volume ] in serum or plasma 0.8 mg/dL low: 0.2mg/ dLhigh : 1.2mg/ dL BILIR UBIN, TOTAL 0.8 0.2 - 1.2 mg/dL [facility] Not Available Not Available 11/07/2024 11:24:01 11/05/19 25 11/04/2024 Compr ehens thiago metab olic 2000 panel - Serum or Plasm a aspartate aminotransfe rase [enzymatic activity/vol ume] in serum or plasma by with P-5'-P 51 U/L low: 9U/Lhi gh: 43U/L high AST 51 (H) 9 - 43 U/L [facility] Not Available Not Available 11/07/2024 11:24:01 11/05/19 25 11/04/2024 Compr ehens thiago metab olic 2000 panel - Serum or Plasm a alanine aminotransfe rase [enzymatic activity/vol ume] in serum or plasma by with P-5'-P 24 U/L low: 0U/Lhi gh: 45U/L ALT 24 0 - 45 U/L [facility] Not Available Not Available 11/07/2024 11:24:01 11/05/19 25 11/04/2024 Compr ehens thiago metab olic 1999 panel - Serum or Plasm a alkaline phosphatase [enzymatic activity/vol ume] in serum or plasma 111 U/L low: 40U/Lh igh: 150U/L ALKAL INE PHOSP HATAS E 111 40 - 150 U/L [facility] AT[facility] Not Available Not Available 11/07/2024 11:24:01 11/05/19 25 11/04/2024 Compr ehens thiago metab olic 1999 panel - Serum or Plasm a sodium [moles/volum e] in serum or plasma 138 mmol/ L low: 136mmo l/Lhig h: 145mmo l/L SODIU M 138 136 - 145 mmol/ L [facility] Not Available Not Available 11/07/2024 11:24:01 11/05/19 25 11/04/2024 Compr ehens thiago metab olic 1999 panel - Serum or Plasm a potassium [moles/volum e] in serum or plasma 4.1 mmol/ L low: 3.5mmo l/Lhig h: 5.1mmo l/L POTAS SIUM 4.1 3.5 - 5.1 mmol/ L [facility] AT[facility] Not Available Not Available 11/07/2024 11:24:01 11/05/19 25 11/04/2024 Compr ehens thiago metab olic 1999 panel - Serum or Plasm a chloride [moles/volum e] in serum or plasma 98 mmol/ L low: 98mmol /Lhigh : 107mmo l/L CHLOR ROXANNA 98 98 - 107 mmol/ L [facility] AT[facility] Not Available Not Available 11/07/2024 11:24:01 11/05/19 25 11/04/2024 Compr ehens thiago metab olic 1999 panel - Serum or Plasm a carbon dioxide, total [moles/volum e] in serum or plasma 31 mmol/ L low: 22mmol /Lhigh : 29mmol /L high CO2 31.0 (H) 22.0 - 29.0 mmol/ L [facility] [employer] AT[facility] Not Available Not Available 11/07/2024 11:24:01 11/05/19 25 11/04/2024 Compr ehens thiago metab olic 1999 panel - Serum or Plasm a glomerular filtration rate/1.73 sq M.predicted [volume rate/area] in serum, plasma or blood by creatinine-b ased formula (CKD-epi 2020) 96 text: arbitr barbra unit GFR: CKD-E PI 2020 CREAT 96 arbit rary unit [facility] [employer] ATORY Not Available Not Available 11/07/2024 11:24:01 11/05/19 25 11/04/2024 Compr ehens thiago metab olic 2000 panel - Serum or Plasm a interpretati on and review of laboratory results Abnorm al Not Available Not Available 11:24:01 11/05/19 25 11/04/2024 Lipas e [Enzy matic activ ity/v olume ] in Serum or Plasm a lipase [enzymatic activity/vol ume] in serum or plasma 12 U/L low: 8U/Lhi gh: 78U/L LIPAS E 12 8 - 78 U/L [facility] [employer] AT[facility] Not Available Not Available 11/07/2024 11:24:01 11/05/19 25 11/04/2024 Lacta te [Mole s/vol ume] in Serum or Plasm a lactate [moles/volum e] in serum or plasma 0.72 mmol/ L low: 0.5mmo l/Lhig h: 2.2mmo l/L LACTI C ACID, PLASM A 0.72 0.50 - 2.20 mmol/ L [facility] [employer] AT[facility] Not Available Not Available 11/07/2024 11:24:01 11/05/19 25 11/04/2024 Karthikeyan ol [Mass /volu me] in Serum or Plasm a ethanol [mass/volume ] in serum or plasma NONE DETECT ED text: none detect ed g/dL ALCOH OL, SERUM NONE DETEC XANDER NONE DETEC XANDER g/dL [facility] Not Available Not Available 11/07/2024 11:24:01 12/08/19 25 12/07/2024 Urina lysis compl ete panel - Urine color of urine YELLOW text: colorl ess-ye llow COLOR YELLO W COLOR LESS- YELLO W [facility] AT[facility] Not Available Not Available 12/16/2024 11:23:36 12/08/19 25 12/07/2024 Urina lysis compl ete panel - Urine appearance of urine CLEAR APPEA JOSE CLEAR [facility] AT[facility] Not Available Not Available 12/16/2024 11:23:36 12/08/19 25 12/07/2024 Urina lysis compl ete panel - Urine specific gravity of urine by test strip 1.015 text: 1.003 - 1.035 arbitr barbra unit SP. GRAVI TY 1.015 1.003 - 1.035 arbit rary unit [facility] Not Available Not Available 12/16/2024 11:23:36 12/08/19 25 12/07/2024 Urina lysis compl ete panel - Urine pH of urine by test strip 8 pH PH 8.0 pH [facility] Not Available Not Available 12/16/2024 11:23:36 12/08/19 25 12/07/2024 Urina lysis compl ete panel - Urine protein [mass/volume ] in urine by test strip 30 mg/dL text: negati ve abnormal PROTE IN 30 (A) NEGAT THIAGO mg/dL [facility] AT[facility] Not Available Not Available 12/16/2024 11:23:36 12/08/19 25 12/07/2024 Urina lysis compl ete panel - Urine glucose [mass/volume ] in urine by test strip NEGATI VE text: negati ve mg/dL GLUCO SE NEGAT THIAGO NEGAT THIAGO mg/dL [facility] AT[facility] Not Available Not Available 12/16/2024 11:23:36 12/08/19 25 12/07/2024 Urina lysis compl ete panel - Urine ketones [mass/volume ] in urine by test strip text: negati ve mg/dL KETON E >=80 NEGAT THIAGO mg/dL [facility] Not Available Not Available 12/16/2024 11:23:36 12/08/19 25 12/07/2024 Urina lysis compl ete panel - Urine bilirubin.to nolvia [presence] in urine by test strip MODERA TE text: negati ve abnormal BILIR UBIN MODER ATE (A) NEGAT THIAGO [facility] Not Available Not Available 12/16/2024 11:23:36 12/08/19 25 12/07/2024 Urina lysis compl ete panel - Urine hemoglobin [presence] in urine by test strip NEGATI VE text: negati ve BLOOD NEGAT THIAGO NEGAT THIAGO [facility] [employer] Not Available Not Available 12/16/2024 11:23:36 12/08/19 25 12/07/2024 Urina lysis compl ete panel - Urine nitrite [presence] in urine by test strip NEGATI VE text: negati ve NITRI TE NEGAT THIAGO NEGAT THIAGO [facility] Not Available Not Available 12/16/2024 11:23:36 12/08/19 25 12/07/2024 Urina lysis compl ete panel - Urine urobilinogen [units/volum e] in urine by test strip 1 mg/dL UROBI LINOG EN 1.0 mg/dL [facility] Not Available Not Available 12/16/2024 11:23:36 12/08/19 25 12/07/2024 Urina lysis compl ete panel - Urine leukocyte esterase [presence] in urine by test strip NEGATI VE text: negati ve LEUKO CYTE ARNIE ASE NEGAT THIAGO NEGAT THIAGO [facility] Not Available Not Available 12/16/2024 11:23:36 12/08/19 25 12/07/2024 Urina lysis compl ete panel - Urine erythrocytes [#/area] in urine sediment by microscopy high power field text: 0-2,3- 5 /hpf RBC-M ANUAL EXAM 2-4 0-2,3 -5 /HPF [facility] [employer] Not Available Not Available 12/16/2024 11:23:36 12/08/19 25 12/07/2024 Urina lysis compl ete panel - Urine WBC-manual exam text: 0-2,3- 5 /hpf WBC-M ANUAL EXAM 3-5 0-2,3 -5 /HPF [facility] Not Available Not Available 12/16/2024 11:23:36 12/08/19 25 12/07/2024 Urina lysis compl ete panel - Urine squamous epi-manual exam FEW text: none-m oderat e /lpf SQUAM OUS EPI-M ANUAL EXAM FEW NONE- MODER ATE /LPF [facility] Not Available Not Available 12/16/2024 11:23:36 12/08/19 25 12/07/2024 Urina lysis compl ete panel - Urine bacteria FEW text: none-f ew BACTE KO FEW NONE- FEW [facility] Not Available Not Available 12/16/2024 11:23:36 12/08/19 25 12/07/2024 Urina lysis compl ete panel - Urine interpretati on and review of laboratory results Abnorm al Not Available Not Available 11:23:36 12/08/19 25 12/07/2024 CBC W Diffe renti al panel , metho d unspe cifie d - Blood leukocytes [#/volume] in blood by automated count 12.62 10*3/ uL low: 410*3/ uLhigh : 1110*3 /uL high WBC 12.62 (H) 4.00 - 11.00 10*3/ uL [facility] Not Available Not Available 12/16/2024 11:23:36 12/08/19 25 12/07/2024 CBC W Diffe renti al panel , metho d unspe cifie d - Blood erythrocytes [#/volume] in blood by automated count 4.97 10*6/ uL low: 4.110* 6/uLhi gh: 5.710* 6/uL RBC 4.97 4.10 - 5.70 10*6/ uL [facility] Not Available Not Available 12/16/2024 11:23:36 12/08/19 25 12/07/2024 CBC W Diffe renti al panel , metho d unspe cifie d - Blood hemoglobin [mass/volume ] in blood 12.9 g/dL low: 12g/dL high: 18g/dL HGB 12.9 12.0 - 18.0 g/dL [facility] [employer] AT[facility] Not Available Not Available 12/16/2024 11:23:36 12/08/19 25 12/07/2024 CBC W Diffe luis armandoti al panel , metho d unspe cifie d - Blood hematocrit [volume fraction] of blood by automated count 39.5 % low: 37%hig h: 51% HCT 39.5 37.0 - 51.0 % [facility] [employer] [facility] Not Available Not Available 12/16/2024 11:23:36 12/08/19 25 12/07/2024 CBC W Sharon swanson al panel , metho d unspe cifie d - Blood MCV [entitic mean volume] in red blood cells by automated count 79.5 fL low: 80fLhi gh: 100fL low MCV 79.5 (L) 80.0 - 100.0 fL [facility] [employer] [facility] Not Available Not Available 12/16/2024 11:23:36 12/08/19 25 12/07/2024 CBC W Diffe luis armandoti al panel , metho d unspe cifie d - Blood MCH [entitic mass] by automated count 26 pg low: 27pghi gh: 33pg low MCH 26.0 (L) 27.0 - 33.0 pg [facility] [employer] [facility] Not Available Not Available 12/16/2024 11:23:36 12/08/19 25 12/07/2024 CBC W Diffe luis armandoti al panel , metho d unspe cifie d - Blood MCHC [entitic mass/volume] in red blood cells by automated count 32.7 g/dL low: 32g/dL high: 36g/dL MCHC 32.7 32.0 - 36.0 g/dL [facility] Not Available Not Available 12/16/2024 11:23:36 12/08/19 25 12/07/2024 CBC W Diffe sky al panel , metho d unspe cifie d - Blood erythrocyte [distwidth] in red blood cells by automated count 20.2 % low: 12%hig h: 15% high RDW 20.2 (H) 12.0 - 15.0 % [facility] Not Available Not Available 12/16/2024 11:23:36 12/08/19 25 12/07/2024 CBC W Diffhossein swanson al panel , metho d unspe cifie d - Blood RDW-SD 57.4 fL low: 36.7fL high: 46.1fL high RDW-S D 57.4 (H) 36.7 - 46.1 fL [facility] Not Available Not Available 12/16/2024 11:23:36 12/08/19 25 12/07/2024 CBC W Sharon swanson al panel , metho d unspe cifie d - Blood platelets [#/volume] in blood by automated count 343 10*3/ uL low: 69493* 3/uLhi gh: 06498* 3/uL PLATE LET 343 140 - 400 10*3/ uL [facility] Not Available Not Available 12/16/2024 11:23:36 12/08/19 25 12/07/2024 CBC W Diffe sky al panel , metho d unspe cifie d - Blood platelet [entitic mean volume] in blood by automated count 9.3 fL low: 9fLhig h: 12fL MPV 9.3 9.0 - 12.0 fL [facility] Not Available Not Available 12/16/2024 11:23:36 12/08/19 25 12/07/2024 CBC W Diffe sky al panel , metho d unspe cifie d - Blood nucleated erythrocytes [#/volume] in blood by automated count 0 10*3/ uL low: 010*3/ uLhigh : 010*3/ uL # NRBC 0.00 0.00 - 0.00 10*3/ uL [facility] Not Available Not Available 12/16/2024 11:23:36 12/08/19 25 12/07/2024 CBC W Diffe renti al panel , metho d unspe cifie d - Blood nucleated erythrocytes /leukocytes [ratio] in blood by automated count 0 text: 0.0 - 0.0 /100 WBC % NRBC 0.00 0.0 - 0.0 /100 WBC [facility] Not Available Not Available 12/16/2024 11:23:36 12/08/19 25 12/07/2024 CBC W Diffe renti al panel , metho d unspe cifie d - Blood platelets [#/volume] in blood by estimate AGREE PLATE LET EST AGREE [facility] Not Available Not Available 12/16/2024 11:23:36 12/08/19 25 12/07/2024 CBC W Diffe renti al panel , metho d unspe cifie d - Blood microcytes [presence] in blood by light microscopy text: % MICRO <25 % [facility] Not Available Not Available 12/16/2024 11:23:36 12/08/19 25 12/07/2024 CBC W Diffe renti al panel , metho d unspe cifie d - Blood macrocytes [presence] in blood by light microscopy text: % MACRO <25 % [facility] Not Available Not Available 12/16/2024 11:23:36 12/08/19 25 12/07/2024 CBC W Diffe renti al panel , metho d unspe cifie d - Blood hypochromia [presence] in blood by light microscopy text: % HYPO <25 % [facility] [employer] [facility] Not Available Not Available 12/16/2024 11:23:36 12/08/19 25 12/07/2024 CBC W Diffe renti al panel , metho d unspe cifie d - Blood ovalocytes [presence] in blood by light microscopy text: % OVALO CYTE <6 % [facility] [employer] [facility] Not Available Not Available 12/16/2024 11:23:36 12/08/19 25 12/07/2024 CBC W Diffe renti al panel , metho d unspe cifie d - Blood dacrocytes [presence] in blood by light microscopy text: % TEAR DROP 1-2 % [facility] Not Available Not Available 12/16/2024 11:23:36 12/08/19 25 12/07/2024 CBC W Diffe renti al panel , metho d unspe cifie d - Blood stomatocytes [presence] in blood by light microscopy text: % STOMA TOCYT E <5 % [facility] Not Available Not Available 12/16/2024 11:23:36 12/08/19 25 12/07/2024 CBC W Diffe renti al panel , metho d unspe cifie d - Blood neutrophils/ leukocytes in blood by automated count 82.7 % SEG 82.7 % [facility] Not Available Not Available 12/16/2024 11:23:36 12/08/19 25 12/07/2024 CBC W Diffe renti al panel , metho d unspe cifie d - Blood lymphocytes/ leukocytes in blood by automated count 7 % LYMPH OCYTE 7.0 % [facility] Not Available Not Available 12/16/2024 11:23:36 12/08/19 25 12/07/2024 CBC W Diffe renti al panel , metho d unspe cifie d - Blood monocytes/le ukocytes in blood by automated count 9.5 % MONOC YTE 9.5 % [facility] Not Available Not Available 12/16/2024 11:23:36 12/08/19 25 12/07/2024 CBC W Diffe renti al panel , metho d unspe cifie d - Blood eosinophils/ leukocytes in blood by manual count 0 % EOSIN OPHIL 0.0 % [facility] Not Available Not Available 12/16/2024 11:23:36 12/08/19 25 12/07/2024 CBC W Diffe renti al panel , metho d unspe cifie d - Blood basophils/le ukocytes in blood by automated count 0.2 % BASOP HIL 0.2 % [facility] Not Available Not Available 12/16/2024 11:23:36 12/08/19 25 12/07/2024 CBC W Diffe renti al panel , metho d unspe cifie d - Blood immature granulocytes [#/volume] in blood by automated count 0.6 % IMMAT URE GRANU LOCYT E 0.6 % [facility] Not Available Not Available 12/16/2024 11:23:36 12/08/19 25 12/07/2024 CBC W Diffe renti al panel , metho d unspe cifie d - Blood neutrophils [#/volume] in blood by automated count 10.44 10*3/ uL low: 1.610* 3/uLhi gh: 7.710* 3/uL high ABSOL VENETIE IRA NEUTR 10.44 (H) 1.60 - 7.70 10*3/ uL [facility] Not Available Not Available 12/16/2024 11:23:36 12/08/19 25 12/07/2024 CBC W Diffe renti al panel , metho d unspe cifie d - Blood lymphocytes [#/volume] in blood by automated count 0.88 10*3/ uL low: 110*3/ uLhigh : 4.910* 3/uL low ABSOL VENETIE IRA LYMPH 0.88 (L) 1.00 - 4.90 10*3/ uL [facility] Not Available Not Available 12/16/2024 11:23:36 12/08/19 25 12/07/2024 CBC W Diffe renti al panel , metho d unspe cifie d - Blood monocytes [#/volume] in blood by automated count 1.2 10*3/ uL low: 010*3/ uLhigh : 1.110* 3/uL high ABSOL VENETIE IRA MONO 1.20 (H) 0.00 - 1.10 10*3/ uL [facility] Not Available Not Available 12/16/2024 11:23:36 12/08/19 25 12/07/2024 CBC W Diffe renti al panel , metho d unspe cifie d - Blood eosinophils [#/volume] in blood by automated count 0 10*3/ uL low: 010*3/ uLhigh : 0.510* 3/uL ABSOL VENETIE IRA EOS 0.00 0.00 - 0.50 10*3/ uL [facility] [employer] [facility] Not Available Not Available 12/16/2024 11:23:36 12/08/19 25 12/07/2024 CBC W Diffe renti al panel , metho d unspe cifie d - Blood basophils [#/volume] in blood by automated count 0.02 10*3/ uL low: 010*3/ uLhigh : 0.210* 3/uL ABSOL VENETIE IRA BASO 0.02 0.00 - 0.20 10*3/ uL [facility] [employer] [facility] Not Available Not Available 12/16/2024 11:23:36 12/08/19 25 12/07/2024 CBC W Diffe renti al panel , metho d unspe cifie d - Blood immature granulocytes [#/volume] in blood by automated count 0.08 10*3/ uL low: 010*3/ uLhigh : 0.0910 *3/uL ABSOL VENETIE IRA IMMAT URE GRANU LOCYT E 0.08 0.00 - 0.09 10*3/ uL [facility] [employer] [facility] Not Available Not Available 12/16/2024 11:23:36 12/08/19 25 12/07/2024 CBC W Diffe renti al panel , metho d unspe cifie d - Blood interpretati on and review of laboratory results Abnorm al Not Available Not Available 11:23:36 12/08/19 25 12/07/2024 Compr ehens thiago metab olic 1999 panel - Serum or Plasm a calcium [mass/volume ] in serum or plasma 9.2 mg/dL low: 8.9mg/ dLhigh : 10.6mg /dL CALCI UM 9.2 8.9 - 10.6 mg/dL [facility] [employer] [facility] Not Available Not Available 12/16/2024 11:23:36 12/08/19 25 12/07/2024 Compr ehens thiago metab olic 2000 panel - Serum or Plasm a glucose [mass/volume ] in serum or plasma 179 mg/dL low: 74mg/d Lhigh: 100mg/ dL high GLUCO SE 179 (H) 74 - 100 mg/dL [facility] [employer] [facility] Not Available Not Available 12/16/2024 11:23:36 12/08/19 25 12/07/2024 Compr ehens thiago metab olic 1999 panel - Serum or Plasm a urea nitrogen [mass/volume ] in serum or plasma 20 mg/dL low: 8mg/dL high: 26mg/d L BUN 20 8 - 26 mg/dL [facility] [employer] AT[employer] Not Available Not Available 12/16/2024 11:23:36 12/08/19 25 12/07/2024 Compr [employer] thiago metab olic 2000 panel - Serum or Plasm a creatinine [mass/volume ] in serum or plasma 0.68 mg/dL low: 0.7mg/ dLhigh : 1.3mg/ dL low CREAT ININE 0.68 (L) 0.70 - 1.30 mg/dL [facility] [employer] ATORY Not Available Not Available 12/16/2024 11:23:36 12/08/19 25 12/07/2024 Compr [employer] thiago metab olic 2000 panel - Serum or Plasm a protein [mass/volume ] in serum or plasma 8.1 g/dL low: 6g/dLh igh: 8g/dL high TOTAL PROTE IN 8.1 (H) 6.0 - 8.0 g/dL [facility] [employer] Not Available Not Available 12/16/2024 11:23:36 12/08/19 25 12/07/2024 Compr Sportisticens thiago [employer] olic 2000 panel - Serum or Plasm a albumin [mass/volume ] in serum or plasma by bromocresol purple (bcp) dye binding method 3.7 g/dL low: 3.4g/d Lhigh: 4.8g/d L ALBUM IN 3.7 3.4 - 4.8 g/dL [facility] [employer] AT[employer] Not Available Not Available 12/16/2024 11:23:36 12/08/19 25 12/07/2024 Compr [employer] thiago metab olic 2000 panel - Serum or Plasm a bilirubin.to nolvia [mass/volume ] in serum or plasma 1.2 mg/dL low: 0.2mg/ dLhigh : 1.2mg/ dL BILIR UBIN, TOTAL 1.2 0.2 - 1.2 mg/dL [facility] [employer] AT[employer] Not Available Not Available 12/16/2024 11:23:36 12/08/19 25 12/07/2024 Compr ens thiago metab olic 1999 panel - Serum or Plasm a aspartate aminotransfe rase [enzymatic activity/vol ume] in serum or plasma by with P-5'-P 46 U/L low: 9U/Lhi gh: 43U/L high AST 46 (H) 9 - 43 U/L [facility] [employer] Not Available Not Available 12/16/2024 11:23:36 12/08/19 25 12/07/2024 Compr ehens thiago metab olic 1999 panel - Serum or Plasm a alanine aminotransfe rase [enzymatic activity/vol ume] in serum or plasma by with P-5'-P 28 U/L low: 0U/Lhi gh: 45U/L ALT 28 0 - 45 U/L [facility] [employer] Not Available Not Available 12/16/2024 11:23:36 12/08/19 25 12/07/2024 Compr ens thiago metab olic 1999 panel - Serum or Plasm a alkaline phosphatase [enzymatic activity/vol ume] in serum or plasma 153 U/L low: 40U/Lh igh: 150U/L high ALKAL INE PHOSP HATAS E 153 (H) 40 - 150 U/L [facility] [employer] Not Available Not Available 12/16/2024 11:23:36 12/08/19 25 12/07/2024 Compr ehens thiago metab olic 1999 panel - Serum or Plasm a sodium [moles/volum e] in serum or plasma 139 mmol/ L low: 136mmo l/Lhig h: 145mmo l/L SODIU M 139 136 - 145 mmol/ L [facility] [employer] Not Available Not Available 12/16/2024 11:23:36 12/08/19 25 12/07/2024 Compr ehens thiago metab olic 1999 panel - Serum or Plasm a potassium [moles/volum e] in serum or plasma 3.7 mmol/ L low: 3.5mmo l/Lhig h: 5.1mmo l/L POTAS SIUM 3.7 3.5 - 5.1 mmol/ L [facility] Not Available Not Available 12/16/2024 11:23:36 12/08/19 25 12/07/2024 Compr ehens thiago metab olic 1999 panel - Serum or Plasm a chloride [moles/volum e] in serum or plasma 91 mmol/ L low: 98mmol /Lhigh : 107mmo l/L low CHLOR ROXANNA 91 (L) 98 - 107 mmol/ L [facility] [employer] AT[employer] Not Available Not Available 12/16/2024 11:23:36 12/08/19 25 12/07/2024 Compr ehens thiago metab olic 1999 panel - Serum or Plasm a carbon dioxide, total [moles/volum e] in serum or plasma 32 mmol/ L low: 22mmol /Lhigh : 29mmol /L high CO2 32.0 (H) 22.0 - 29.0 mmol/ L [facility] [employer] AT[employer] Not Available Not Available 12/16/2024 11:23:36 12/08/19 25 12/07/2024 Compr ehens thiago metab olic 1999 panel - Serum or Plasm a glomerular filtration rate [volume rate/area] in serum, plasma or blood by creatinine-b ased formula (CKD-epi 2020)/1.73 sq M 103 text: arbitr barbra unit GFR: CKD-E PI 2020 CREAT 103 arbit rary unit [facility] Not Available Not Available 12/16/2024 11:23:36 12/08/19 25 12/07/2024 Compr ehens thiago metab olic 2000 panel - Serum or Plasm a interpretati on and review of laboratory results Abnorm al Not Available Not Available 11:23:36 12/08/19 25 12/07/2024 Lipas e [Enzy matic activ ity/v olume ] in Serum or Plasm a lipase [enzymatic activity/vol ume] in serum or plasma 14 U/L low: 8U/Lhi gh: 78U/L LIPAS E 14 8 - 78 U/L [facility] [employer] [facility] Not Available Not Available 12/16/2024 11:23:35 04/04/20 22 03/30/2022 LDCT, chest , for lung khris hopper No observ ation record ed. [facility] [address] [place], [address], 04/15/2022 13:15:32 05/02/20 22 06/02/2022 PFT, compl ete No observ ation record ed. [facility] [address] [place], [address], 05/13/2022 11:16:54 06/20/20 22 06/17/2022 PET-C T, limit ed No observ ation record ed. [facility] Scheduling [address] [place], [address], 06/22/2022 10:41:50 10/18/19 23 10/18/2022 CT, chest , w/o contr ast No observ ation record ed. [facility] Scheduling [address] [place], [address], 10/24/2022 10:53:41 09/12/19 25 XRjesica y + gus r + bladd er Access ion Exam Comple xander Date/T freddy [id number] XR KUB 2024 19:09 Rebekah sherman: CHRIS GAINES CIA, JR ------ ------ ------ ------ ------ ------ ------ ------ ------ ------ ------ ------ ---- EXAM: XR KUB DATE: 09/12/19 6:57 PM INDICA TION: Nausea , vomiti ng COMPAR DANIELITO: CT abdome n pelvis 09/10/19 TECHNI QUE: 2 separa te supine AP radiog raphs of the abdome n FINDIN GS: Note that the lung bases and upper abdome n are outsid e the field- of-vie w. Abdome n and bowel: Normal bowel gas patter n. No dilate d loops of bowel identi fied. Coloni c stool burden is overal l mild. Multip le surgic al clips and radiop aque suture s again noted within the left upper and left lower quadra nts of the abdome n. Bones and soft tissue s: No acute abnorm ality. Two right to left transs acral transi liac screws again noted. Mild bilate ral hip joint osteoa rthros is. Modera te bilate ral facet joint hypert rophy at L5-S1. IMPRES HUDSON: Mild stool burden withou t eviden ce of bowel obstru ction. ------ ------ ------ ------ ------ ------ ------ ------ ------ ------ ------ ------ ---- Electr onical ly Signed and Authen ticate d by Angel puckett MD 2024 19:38 Releas e to patien t->Imm ediate Reason for exam?- >N/V What is the readin g priori ty?->R outine Initia te radiol ogy protoc ols if patien t meets criter ia?->Y es Sympto m/Dura tion/L ocatio n/Acut e Injury /Histo ry?->n /v, abd pain Does this exam need a readin g from an outsid e group like [employer] or [employer] [facility]?->N o Does this exam need elevat ed to a STAT Readin g?->Saúl michelle [facility] [address] [place], [address], 09/13/2024 09:52:21 Result Notes Documentation Provider Name and Address Organization Details Recorded Time Xr, Kidney + Ureter + Bladder : Accession Exam Completed Date/Time [id number] XR KUB 09/12/2024 19:09 Requesting: CHRIS ARROYO JR EXAM: XR KUB DATE: 09/12/2024 6:57 PM INDICATION: Nausea, vomiting COMPARISON: CT abdomen pelvis 09/10/2024 TECHNIQUE: 2 separate supine AP radiographs of the abdomen FINDINGS: Note that the lung bases and upper abdomen are outside the [id number]-yeyl. Abdomen and bowel: Normal bowel gas pattern. No dilated loops of bowel identified. Colonic stool burden is overall mild. Multiple surgical clips and radiopaque sutures again noted within the left upper and left lower quadrants of the abdomen. Bones and soft tissues: No acute abnormality. Two right to left transsacral transiliac screws again noted. Mild bilateral hip joint osteoarthrosis. Moderate bilateral facet joint hypertrophy at L5-S1. IMPRESSION: Mild stool burden without evidence of bowel obstruction. Electronically Signed and Authenticated by Mauricio Correa MD 09/12/2024 19:38 Release to patient->Immediate Reason for exam?->N/V What is the reading priority?->Routine Initiate radiology protocols if patient meets criteria?->Yes Symptom/Duration/Location/ Acute Injury/History?->n/v, abd pain Does this exam need a reading from an outside group like [employer] or [employer]?->No Does this exam need elevated to a STAT Reading?->Yes Geovany Sarmiento LPN [place], [place] [facility] 09/13/2024 09:52:21 Problems Name Problem SNOMED Code Status Onset Date Resolution Date Notes Provider Name and Address Organization Details Recorded Time [place] m 4201660 Active 2021 Araceli Riojas CLINICAL LEADER [place], [place] [facility] 2 11:00:00 Atrial fibrillat ion 04956842 Active 2021 Araceli Riojas CLINICAL LEADER [place] [facility] 2 11:00:12 Hypertens thiago disorder 92131323 Active 2021 Araceli Riojas CLINICAL LEADER [place] [facility] 2 11:00:34 Type 2 diabetes mellitus 86861579 Active 2021 Araceli Riojas CLINICAL LEADER [place] [facility] 2 11:00:53 Gastroeso phageal reflux disease 511352110 Active 2021 SILVANA GALVIN NP Attn: Flakito oconnor,[address] [place], [address], [place] - [facility] 2 11:22:32 Restless legs 50536903 Active 2021 SILVANA GALVIN NP Attn: Flakito oconnor,[address] [place], [address], [place] [facility] 2 11:25:20 Insomnia 023584014 Active 2021 SILVANA GALVIN NP Attn: Flakito oconnor,[address] [place], [address], [place] [facility] 2 11:25:26 Chronic pain 14548653 Active 2021 SILVANA GALVIN NP Attn: Flakito oconnor,[address] [place], [address], [place] [facility] 2 11:25:32 Arthritis 4357266 Active 2021 SILVANA GALVIN NP Attn: Flakito oconnor,[address] [place], [address], [place] [facility] 2 11:26:02 Benign prostatic hyperplas ia 253519855 Active 2021 SILVANA GALVIN NP Attn: Flakito anastasia,[address] [place], [place], [address] [place] [address] 2, [place] [facility] 2 11:26:26 Vitamin D deficienc y 01003276 Active 2021 SILVANA GALVIN NP Attn: Flakito anastasia,[address] [place], [place], [address] [place] [address] 2, [place] [facility] 2 11:30:31 Sleep apnea 60427889 Active 2021 SILVANA GALVIN NP Attn: Flakito anastasia,[address] [place], [place], [address] [place] [address] 2, [place] [facility] 2 11:33:51 Folic acid deficienc y 906810059 Active 2021 SILVANA GALVIN NP Attn: Flakito anastasia,[address] [place], [place], [address] [place] [address] 2, [place] [facility] 2 14:38:06 Mixed anxiety and depressiv e disorder 346457101 Active 2021 SILVANA GALVIN NP Attn: Flakito anastasia,[address] [place], [place], [address] [place] [address] 2, [place] [facility] 2 14:38:21 Smoker 89303183 Active 2021 SILVANA GALVIN NP Attn: Flakito anastasia,[address] [place], [place], [address] [place] [address] 2, [place] [facility] 2 15:01:31 Low back pain 470542741 Active 2021 SILVANA GALVIN NP Attn: Flakito anastasia,[address] [place], [place], [address] [place] [address] 2, [place] [facility] 2 14:14:04 Pain of left shoulder joint 101569768574 95175 Active 2021 SILVANA GALVIN NP Attn: Flakito anastasia,[address] [facility] [place], [address], [place] - [facility] 2 14:21:11 Polyp of colon 04138599 Active 2021 Repeat colonosco py 2026 SILVANA GALVIN NP Attn: Accountoneida g,[address] [facility], [place], [address], [facility] - [facility] 2 18:02:07 Steatotic liver disease 693077209 Active 2021 SILVANA GALVIN NP Attn: Accountin g,[address] [facility], [place], [address], [facility] - [facility] 2 01:01:55 Nodule of lung 865651111 Active 2021 right upper lobe retractil e nodule - repeat PET-CT September 2022 SILVANA GALVIN NP Attn: Accountin g,[address] [facility], [place], [address], [facility] - [facility] 2 20:48:54 Periphera l edema 047563484 Active 2021 SILVANA GALVIN NP Attn: Accountin g,[address] 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, [place], [address], [facility] - [facility] 3 15:51:46 Problem Notes None recorded. Procedures Surgical History Date Name Laterality Status Provider Name and Address Organization Details Recorded Time 03/30/20 colonoscopy completed Araceli Riojas LPN [facility] 04/11/2022 12:29:51 Bariatric Surgery completed SILVANA GALVIN NP Attn: Accounting,[address] [facility], [place], [address], [facility] - [facility] 03/24/2022 14:18:56 Sinus Surgery completed SILVANA GALVIN NP Attn: Accounting,[address] [facility], [place], [address], [facility] 03/24/2022 14:24:10 Arthroscopic Surgery completed Jessy Blanco RN [facility] 03/21/2022 11:04:05 Imaging Results None recorded. Procedure Notes None recorded. Medical Equipment None Reported. Allergies No known drug allergies Medications Name Sig Start Date Stop Date Status Note LastModified by Organization Details LastModified Time atorvastat in 40 mg tablet Take 1 tablet every day by oral route at bedtime for 90 days. active Not Available Not Available No t Available metformin 500 mg tablet TAKE TWO TABLETS BY MOUTH TWICE DAILY with meals 03/10 completed Not Available Not Available Not Available ropinirole 1 mg tablet 10/27 completed Not Available Not Available Not Available tizanidine 4 mg tablet Take 1 tablet every day by oral route as needed. active Not Available Not Available No t Available hydrocodon e 5 mg-acetami nophen 325 mg tablet 03/10 completed Not Available Not Available Not Available ropinirole 3 mg tablet Take 1 tablet every day by oral route at bedtime for 30 days. active Not Available Not Available No t Available tramadol 50 mg tablet Take 1 tablet every day by oral route as needed. active Not Available Not Available No t Available quetiapine 100 mg tablet TAKE 1 TABLET BY MOUTH ONCE DAILY 10/18 completed Not Available Not Available Not Available Vitamins B Complex tablet TAKE 1 TABLET BY MOUTH EVERY DAY active Not Available Not Available No t Available famotidine 20 mg tablet Take 1 tablet twice a day by oral route as directed for 30 days. active Not Available Not Available No t Available chlordiaze poxide 25 mg capsule 10/27 completed Not Available Not Available Not Available tamsulosin 0.4 mg capsule TAKE TWO CAPSULES EVERY MORNING (m) active Not Available Not Available No t Available ropinirole 2 mg tablet Take 1 tablet every day by oral route at bedtime for 30 days. active Not Available Not Available No t Available pantoprazo le 40 mg tablet,del ayed release Take 1 tablet every day by oral route in the morning for 30 days. active Not Available Not Available No t Available mirtazapin e 30 mg tablet Take 1 tablet every day by oral route at bedtime for 30 days. 07/22 completed Taking 1/2 tablet (15mg) once daily Not Available Not Available Not Available buspirone 10 mg tablet Take 1 tablet twice a day by oral route. active Not Available Not Available No t Available gabapentin 300 mg capsule take 3 capsules BY MOUTH TWICE DAILY active Not Available Not Available No t Available diclofenac sodium 75 mg tablet,del ayed release TAKE ONE TABLET BY MOUTH TWICE DAILY NEEDED FOR PAIN 03/10 completed Not Available Not Available Not Available mirtazapin e 15 mg tablet Take 1 tablet every day by oral route at bedtime for 30 days. 04/11 completed Not Available Not Available Not Available metoprolol succinate ER 25 mg tablet,ext ended release 24 hr Take 1 tablet every day by oral route as directed for 30 days. active Not Available Not Available No t Available diazepam 5 mg tablet 03/10 completed Not Available Not Available Not Available amoxicilli n 875 mg-potassi um clavulanat e 125 mg tablet active Not Available Not Available Not Available duloxetine 30 mg capsule,de layed release Take 1 capsule every day by oral route. active Not Available Not Available No t Available aspirin 81mg once daily active Not Available Not Available No t Available quetiapine 50 mg tablet Take 2 tablets every day by oral route at bedtime. active Not Available Not Available No t Available hydrochlor othiazide 12.5 mg tablet TAKE TWO TABLETS BY MOUTH EVERY DAY 03/10 completed Not Available Not Available Not Available FeroSul 325 mg (65 mg iron) tablet TAKE 1/2 TABLET BY MOUTH TWICE DAILY with meals 03/10 completed Not Available Not Available Not Available quetiapine ER 50 mg tablet,ext ended release 24 hr Take 2 tablets every day by oral route at bedtime. active Not Available Not Available No t Available quetiapine ER 150 mg tablet,ext ended release 24 hr Take 1 tablet every day by oral route as directed for 30 days. active Not Available Not Available No t Available B Complex 1 (with folic acid) 0.4 mg tablet TAKE ONE TABLET BY MOUTH EVERY DAY 2022 active Not Available Not Available Not Anastacioai miracle Sutab 1.479-0.18 8-0.225 gram tablet USE DIRECTED 04/11 completed Not Available Not Available Not Available Vitals Date Recorded Body height Body temperature Oxygen saturation Oxygen saturation in Arterial blood by Pulse oximetry Heart rate Body mass index (BMI) Body weight Systolic And Diastolic Provider Name and Address Organization Details Last Updated DateTime 3 180.34 cm 97.4 [degF] 98 % 98 % 84 /min 27.1 kg/m2 63436.9 2 g 120/76 mm[Hg] Araceli Riojas [place] - [facility] 3 14:41:12 Date Recorded Body height Body mass index (BMI) Body weight Body temperature Oxygen saturation Oxygen saturation in Arterial blood by Pulse oximetry Heart rate Systolic And Diastolic Provider Name and Address Organization Details Last Updated DateTime 3 180.34 cm 27.5 kg/m2 17241.7 g 97.8 [degF] 97 % 97 % 88 /min 140/78 mm[Hg] Araceli Riojas [place] - [facility] 3 14:16:06 Date Recorded Body weight Body height Body mass index (BMI) Body temperature Oxygen saturation Oxygen saturation in Arterial blood by Pulse oximetry Heart rate Systolic And Diastolic Provider Name and Address Organization Details Last Updated DateTime 2 93873.4 g 180.34 cm 25.5 kg/m2 96.6 [degF] 97 % 97 % 66 /min 122/74 mm[Hg] Araceli Riojas [place] - [facility] 2 10:56:25 Date Recorded Body height Body mass index (BMI) Body weight Body temperature Heart rate Oxygen saturation Oxygen saturation in Arterial blood by Pulse oximetry Systolic And Diastolic Provider Name and Address Organization Details Last Updated DateTime 2 180.34 cm 25.5 kg/m2 55359.4 g 97.3 [degF] 80 /min 94 % 94 % 130/76 mm[Hg] Araceli Riojas [place] [facility] 2 12:27:33 Date Recorded Body height Provider Name an d Address Organization Details Last Updated DateTime 07/12/2022 180.34 cm Aracelirichar RiojasSHARAD [place] - [facility] 2021 12:16:21 Date Recorded Body height Body mass index (BMI) Body weight Oxygen saturation Oxygen saturation in Arterial blood by Pulse oximetry Heart rate Respiratory rate Body temperature Systolic And Diastolic Provider Name and Address Organization Details Last Updated DateTime 2 180.34 cm 28.3 kg/m2 44586.2 5 g 98 % 98 % 60 /min 20 /min 97.6 [degF] 118/72 mm[Hg] Geovany Sarmiento LPN [place] - [facility] 09:27:03 Social History Question Answer Notes LastModified by Organizat ion Details LastModified Time Tobacco Smoking Status Current Every Day Smoker Geovany Sarmiento LPN null, [place] [facility] 07/22/2022 09:29:41 What Is Your Level Of Caffeine Consumption? Occasional Information not available 03/10/2022 What Was The Date Of Your Most Recent Tobacco Screening? 10/27/2022 Information not available 10/27/2022 How Many Children Do You Have? 1 Information not available 03/10/2022 What Is Your Relationship Status? Information not available 03/10/2022 How Much Tobacco Do You Smoke? 1 PPD Information not available 07/22/2022 Has Tobacco Cessation Counseling Been Provided? Yes Information not available 07/22/2022 On What Date Was Tobacco Cessation Counseling Provided? 09/22/2022 Information not available 09/24/2022 Sex: Male Functional Status Question Answer Note LastModified by Organizat ion Details LastModified Time Do you use any illicit or recreational drugs? No occassionally marijuana Information not available 03/10/2022 What is your level of alcohol consumption? Heavy whiskey and beer, drinks 2 5ths a day, gets depressed. pt states not been drinking any, last drink 10 days ago, got another DUI, going to rehab. 07/2022 Information not available 07/22/2022 Are you currently employed? retired on disability Information not available 03/10/2022 Mental Status None recorded. Family History Nothing Reported. Medical History No medical history recorded. Immunizations Vaccine Type Date Status Note Provider Nam e and Address Organization Details Recorded Time COVID-19, mRNA, LNP-S, PF, 100 mcg/0.5mL dose or 50 mcg/0.25mL dose 1 completed SILVANA GALVIN NP Attn: Accounting[address] [place], [place], [address] [place] [address], [place] - [facility] 07/22/2022 09:57:00 COVID-19, mRNA, LNP-S, PF, 100 mcg/0.5mL dose or 50 mcg/0.25mL dose 1 completed SILVANA GALVIN NP Attn: Accounting[address] [place], [place], [address] [place] [address], [place] [facility] 07/22/2022 09:57:00 COVID-19, mRNA, LNP-S, PF, 100 mcg/0.5mL dose or 50 mcg/0.25mL dose 1 completed SILVANA GALVIN NP Attn: Accounting[address] [place], [place], [address] [place] [address], [place] [facility] 07/22/2022 09:57:00 Influenza, recombinant, quadrivalent, PF 0 completed SILVANA GALVIN NP Attn: Accounting[address] [place], [place], [address] [place] [address], [place] [facility] 07/22/2022 09:57:00 Hep A, adult 9 completed SILVANA GALVIN NP Attn: Accounting[address] [place], [place], [address] [place] [address], [place] [facility] 07/22/2022 09:57:00 Influenza, split virus, quadrivalent, PF 9 completed SILVANA GALIVN NP Attn: Accounting[address] [place], [place], [address] [place] [address], [place] [facility] 07/22/2022 09:57:00 COVID-19, mRNA, LNP-S, bivalent, PF, 50 mcg/0.5 mL or 25mcg/0.25 mL dose 3 completed Not Available [facility] 10/27/2022 13:57:30 Influenza, split virus, quadrivalent, preservative 2 completed SILVANA GALVIN NP Attn: Accounting[address] [place], [address] [place] [address] 07/22/2022 17:38:10 Past Encounters Encounter ID Performer Location Encounter Start Date Encounter Closed Date Diagnosis/Indication Diagnosis SNOMED-CT Code Diagnosis ICD10 Code Diagnosis Note [id number] Chris Smith MD [facility] [place] [facility] [address] [place] [address] 03/10/2022 10:37:56 03/10/2022 12:10:32 Adult health examination 303609294 Z00.00 Discussed vaccinatio ns - pt declinesLa bs ordered today - will call with resultsMod erate daily activityPt desires colonoscop y screening at [place] Fatigue 05854421 R53.83 Labs ordered - will call with results Alcoholism 7168680 F10.2 0 Discussed cessation and rehab - pt declines Type 2 elenita betes mellitus 43514549 E11.9 Pt does not check BS at homeNot currently taking any medication sPreviousl y on metformin twice dailyWill start with labs and f/u in 2 weeksLow carb and low sugar dietModera te daily activity Vitamin D deficiency 347 08835 E55.9 Vit D level checked - pt reports hx of low vit d Hypertensive disorder 38 610485 I10 Pt does not check BP at homeGoal <130/<80Lo w salt dietModera te daily activitySm oking cessationT akes metoprolol when he remembers Screening for malignant neoplasm of prostate 496443876 Z12.5 PSA ordered today Benign pro static hyperplasia 319251420 N40.0 Takes medication when he remembers Restless legs 14210524 G 25.81 Takes medication when he remembersO ral hydration with fluidsDecr ease alcohol consumptio n Insomnia 295294503 G47.0 0 Discussed healthy sleeping habitsCont inue medication as prescribed Limit caffeine and sugary beveragesL imit screen timeIncrea se daily physical activitySl eep in dark room Atrial fibrillation 4943 6004 I48.91 Reports hx ofNo recent flaresTake s medication when he remembersD enies anticoagul ant Gastroesop hageal reflux disease 296677163 K21.9 Continue medication as prescribed Small frequent mealsRemai n upright for 30-60min per dayAvoid known triggersAv oid large greasy mealsAvoid late night eating Chronic pain 07798897 G8 9.29 Continue seeing pain clinicStat es gabapentin does not work for himHas narcotics at home that he rarely takes per his report Mixed anxi ety and depressive disorder 689826420 F41.8 Stable without medication sRefuses counseling No SI or HI Sleep apnea 74600313 G47 .30 Does not wear CPAP Smoker 85847967 F17.200 Denies cessation Screening for malignant neoplasm of colon 210324082 Z12.11 [id number] Chris Smith MD [facility] [address] [place] [address] [id number] 2 04/11/2022 11:54:44 04/11/2022 13:30:03 Insomnia 994986986 G47.00 May increase remeron to 30mg at bedtime - not to avoid with alcoholDis cussed healthy sleeping habitsCont inue medication as prescribed Limit caffeine and sugary beveragesL imit screen timeIncrea se daily physical activitySl eep in dark room Alcoholism 3099363 F10.2 0 Discussed cessation and rehab - pt declines Folic acid deficiency 19 8954554 E53.8 Folate WNL Hypertensive disorder 38 763165 I10 Pt does not check BP at homeGoal <130/<80Lo w salt dietModera te daily activitySm oking cessationC ontinue metoprolol Type 2 elenita betes mellitus 75840985 E11.9 Last A1C was 6.1May continue with diet controlled Does not check BS at homeAdvise d low carb low sugar dietModera te daily activityRT C in 3 mo and PRN Vitamin D deficiency 347 19862 E55.9 Vit D WNL Nodule of lung 863493526 R91.1 Noted on lung screening for hx of smokingWil l refer to pulmo for further eval [id number] Chris Smith MD [facility] ([facility]ult [facility]) [address] [place] [address] [phone] 2 07/22/2022 09:17:37 07/22/2022 10:19:14 Hypertensive disorder 28175562 I10 Pt does not check BP at homeGoal <130/<80Lo w salt dietModera te daily activitySm oking cessationC ontinue metoprolol Type 2 elenita betes mellitus 97725466 E11.9 A1C ordered today - will call with resultsHas been diet controlled Does not check BS at homeAdvise d low carb low sugar dietModera te daily activityDi abetic foot exam todayAdvis ed dilated eye examWill consider pneumonia vaccineAdv ised statin Mixed anxi ety and depressive disorder 203979317 F41.8 Discussed daily medication and possible s/e - pt v/u and would like to proceedNo SI or HIAdvised counseling RTC in 1 mo for f/u and PRNTo ED with acute distress Administra tion of influenza vaccine 18024469 Z23 Alcoholism 1071885 F10.2 0 Discussed cessation and rehabPt reports last drink 10 days ago - smells like alcohol [id number] DUIUpcomin g court date Atrial fibrillation 4943 6004 I48.91 Reports hx ofNo recent flaresTake s metoprolol Avoid alcoholTak es ASA when he remembers Benign pro static hyperplasia 461438957 N40.0 Stable with meds Steatotic liver disease 270916157 K76.0 Alcohol cessation encouraged Sleep apnea 02861200 G47 .30 Does not wear CPAP Restless legs 94654340 G 25.81 Stable with medsOral hydration with fluidsDecr ease alcohol consumptio n Peripheral edema 5488888 00 R60.9 Compressio n stockingsE levate legs when sitting for >15 minLimit salt intakeMoni tor for CP or SOBLabs ordered - will call with results Smoker 98836063 F17.200 Denies cessation at this time Nodule of lung 941918744 R91.1 Repeat PET in September Insomnia 631854982 G47.0 0 Discussed weaning off of remeronSta rting on seroquel for depression - discussed taking at bedtime to help with sleepDiscu ssed healthy sleeping habitsLimi t caffeine and sugary beveragesL imit screen timeIncrea se daily physical activitySl eep in dark room Gastroesop hageal reflux disease 885439920 K21.9 Continue medication as prescribed Small frequent mealsRemai n upright for 30-60min per dayAvoid known triggersAv oid large greasy mealsAvoid late night eating Arthritis 2420839 M19.90 Supportive therapy encouraged Daily activityWe ight lossTopica l creamsTopi andreina heat or iceWarm soaksOTC pain relievers PRNContinu e seeing pain clinic Overweight 621187501 E66 .3 [id number] Chris Smith MD [facility] ([facility]ult Med) [address] [place] [address] [phone] 2 09/22/2022 14:11:18 09/22/2022 17:37:17 Anemia 554550992 D64.9 CBC ordered today - will call with results Mixed anxi ety and depressive disorder 032030407 F41.8 Increase medication to 150mg once dailyNo SI or HIAdvised counseling RTC in 1 mo for f/u and PRNTo ED with acute distress Nodule of lung 598032457 R91.1 Due for repeat imaging Alcoholism 7425861 F10.2 [address] in rehab Overweight 919505567 E66 .3 Smoker 90117492 F17.200 Discussed use of wellbutrin , patch or gum with ptPt will consider options [id number] Chris Smith MD [facility] ([facility]) [address] [place] [address] [phone] 2 10/27/2022 13:56:51 10/27/2022 16:28:51 Gastroesophageal reflux disease without esophagitis 330238774 K21.9 Stop pepcidStar t on PPI therapy once daily in the AMEducated on GERD and avoiding known triggersRe main upright for 30-60min after mealsSmall frequent meals encouraged Avoid large greasy mealsAvoid late night eatingNeed to have EGD done - pt unable to commit to appt if referral placed due to upcoming detention or rehabRTC in 2 weeks for f/u Type 2 elenita betes mellitus 08414057 E11.9 A1C recently increased from 6 to 6.5Discuss ed the need for low carb low sugar dietHas been diet controlled Does not check BS at homeAdvise d low carb low sugar dietModera te daily activityDi scussed with pt possible medication induced increase of A1C Mixed anxi ety and depressive disorder 062621789 F41.8 Stable with current doseDiscus sed with pt switching medication s to avoid increase of A1CPt declines at this timeStates he will monitor his BSDepressi on is stable with current medication No SI or HIAdvised counseling To ED with acute distress Hypertensive disorder 38 243258 I10 Pt does not check BP at homeGoal <130/<80Lo w salt dietModera te daily activitySm oking cessationC ontinue metoprolol BP ^ in office today, pt anxiously waiting call from second officer Obesity 207843423 E66.9 Health Concerns Section Related Observation LastModified by Organization Detai ls LastModified Time None Recorded Concern Status LastModified by Organization Details LastModified Time None Recorded Advance Directives Directive None Recorded Payers Insurance Date Sequence Insurance Name Policy Number Policy Feng Covered Member ID Feng Member ID Guarantor Name 08/08/2024 [place] [facility] Miguel Ángel Delgado [id number] Miguel Ángel Delgado 10/01/2024 2 [place] WHEN MEDICARE OR MEDICARE REPLACEMENT PRIMARY) Miguel Ángel Delgado [id number] Miguel Ángel Delgado 10/01/2024 1 [place] Miguel Ángel Delgado [id number] Miguel Ángel Delgado Notes Date Note Type Note Provider Name and Address Organization Details Recorded Time 03/10/2022 text/html Pt to clinic to establish care. He reports that he does not take his medications as prescribed. He takes them apparently when he remembers. He admit to daily alcohol consumption of approximately two 5ths of vodka. He does not check his blood sugars or blood pressures at home. Diet is poor. SILVANA GALVIN NP Attn: [address]ing[address] [place], [address], [facility] 03/10/2022 15:03:32 04/11/2022 text/html Pt to clinic to discuss test results. Pt has concerns with poor sleeping despite taking remeron - he would like to know if increasing medication is an option. He continues with poor diet. Daily alcohol consumption - 1-2/5s of vodka daily on average. Continues smoking daily. SILVANA GALVIN NP Attn: Accounting[address] [facility], [place], [address], [facility] 04/15/2022 01:05:36 07/22/2022 text/html Pt to clinic for f/u of chronic conditions. States that he recently got his 3rd DUI. He is on a waiting list for [facility] in [place] for alcohol rehab, has pending DUI evaluation and court September 15 Arthritis - takes gabapentin as prescribed, does not feel that it helps, sees pain clinic, next appt is in August, has been getting epidural injections A-fib - not currently taking ASA, episodes correlate with alcohol intake, takes metoprolol as prescribed BPH - stable with medication GERD - takes pepcid twice daily, avoids known triggers, stable Insomnia - not sleeping well, takes mirtazapine but has only been taking 15mg, states that he was having vivid dream with increased dosage HTN - does not check BP at home, takes metoprolol as prescribed Anxiety/Depression - not well controlled, states that he feels depressed, is still not over his divorce that was several years ago, feels that his drinking is triggered by uncontrolled depression, no SI or HI, is willing to discuss medications, no current counseling Restless legs - stable with medication Sleep apnea - does not wear CPAP T2DM - not currently taking medication, does not check BS, does not monitor day Vit D - takes Vit D when he remembers Smoker - 1+PPD SILVANA GALVIN NP Attn: Accounting[address] [facility] [facility], [place], [address], [facility] 07/22/2022 17:49:33 09/22/2022 text/html Pt to clinic for 1 mo f/u. Pt is waiting for spot in rehab at [facility]. He has cut back on alcohol intake but still struggles with increased alcohol consumption. His anxiety and depression has improved some with is medication, but he feels that it could be better controlled. He has quite a bit of mind racing that interferes with his sleeping. He also feels that his increased alcohol intake stems from his anxiety. He is checking into getting help at home. SILVANA GALVIN NP Attn: Accounting[address] [facility], [place], [address], [place] [facility] 09/24/2022 21:23:38 10/27/2022 text/html Pt to clinic to discuss his GERD, T2DM and Depression. Pt has several DUIs and has been in and out of rehab. He states that he ends up walking out. He does state that he will either be going to rehab or to detention in the next week or two if not sooner. GERD - takes pepcid twice daily, hx of ulcer, was scheduled for EGD last fall but did not attend, he recently attempted to reschedule this and was told he needed a new referral, he avoids spicy and danish foods as much as possible, he has daily abdominal burning and pain, he does not feel that the medication is working Depression - states his depression and insomnia is better since taking seroquel, pt has been on seroquel in the past, states he is getting ready to go to detention or to rehab and would like to remain on this medication, he is aware of the weight gain and increase of A1C that is related to A1C T2DM - diet controlled, does not check his BS SILVANA GALVIN NP Attn: Accounting[address], [place], [address], [facility] 10/27/2022 23:48:54
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
--- OUTSIDE RECORDS SUMMARY | 2025-03-20 19:14 | XMS_ITS | Clinical Summary ---
Author Organization [facility] Address [address] [place] [address] Care Team Providers Care Densitometer Reader Name Role Phone Óscar Montano MD Primary Care Provider Source Comments [facility],non-owned Affiliates and Associated Physician Practices is amultiple site organization consisting of ambulatory clinics and hospital sitesin [place], [place], [place] and [place]. This disclosure is being madepursuant to the Care Everywhere program and may not contain all information available regarding this patient. Last updated 18.[employer] [facility] Allergies No known active allergies Medications * This document contains information received from the source organization and may not represent a complete record from that organization. * Be aware that medications may not be up to date on this document. Alwaysverify current medications with the patient. hydroCHLOROthia zide (HYDRODIURIL) 12.5 MG Take 25 mg by mouth once daily Active tamsulosin (FLOMAX) 0.4 MG capsule Take 0.4 mg by mouth once daily At the same time every day after a meal. Active omeprazole (PRILOSEC) 20 MG capsule Take 20 mg by mouth daily before breakfast Active rOPINIRole (REQUIP) 1 MG tablet Take 1 mg by mouth at bedtime Active mirtazapine (REMERON) 15 MG tablet Take 15 mg by mouth at bedtime Active mirtazapine (REMERON) 30 MG tablet Take 1 tablet by mouth at bedtime 0 Active metFORMIN (GLUCOPHAGE) 500 MG tablet Take 500 mg by mouth 2 times daily with morning and evening meal Active Active Problems Problem Noted Date Diagnosed Date Metabolic encephalopathy 03/11/2019 Closed fracture of sacrum with routine healing 0 12/22/2015 Strain of thoracic region 12/24/2013 Overview (12/24/2013): Onset 11/08/13 Lumbar strain 12/24/2013 Overview (12/24/2013): Onset 11/08/13 Family History Medical History Relation Name Comments Diabetes Brother Diabetes Father Heart Disease Father Diabetes Mother Heart Disease Mother Relation Name Status Comments Brother Father Mother Social History Tobacco Use Types Packs/Day Years Used Date Smoking Tobacco: Every Day Cigarettes Smokeless Tobacco: Former Tobacco Cessation:Ready to Q uit: Yes; Counseling Given: Yes Comments:patient said he is going to quit because he is going to correction Alcohol Use Standard Drinks/Week Comments Yes 0 (1 standard drink = 0.6 oz pur e alcohol) 2 fifths of vodka a day Sex and Gender Information Value Date Recorded Sex Assigned at Not on file Legal 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 Gender Identity Not on file Sexual Orientation Not on file Last Filed Vital Signs Vital Sign Reading Time Taken Comments Blood Pressure 154/88 04/05/2020 6:51 PM CDT Pulse 76 04/05/2020 6:51 PM CDT Temperature 37.1 C (98.7 F) 04/05/2020 6:51 PM CDT Respiratory Rate 18 04/05/2020 6:51 PM CDT Oxygen Saturation 97% 04/05/2020 6:51 PM CDT Inhaled Oxygen Concentration 21% 03/13/2019 1 :50 AM CDT Weight 94.3 kg (208 lb) 04/05/2020 6:51 PM CDT Height 180.3 cm (5' 11) 04/05/2020 6:51 PM CDT Body Mass Index 29.01 04/05/2020 6:51 PM CDT Plan of Treatment Health Maintenance Due Date Last Done Comments COLOGUARD (AGES 45-75) - COL ON CA SCREENING 1959 COLON MONITORING 1959 COLONOSCOPY - COLON CA SCREENING 1959 CT COLONOGRAPHY - COLON CA SCREENING 1959 Colorectal Cancer Screening 1959 FIT - COLON CA SCREENING 1959 FLEX SIG - COLON CA SCREENING 1959 LIPID TESTING 1959 HIV SCREENING 1974 HEPATITIS C SCREENING 08/23/1977 DTAP/TDAP/TD VACCINES (1 - Tdap) 1978 PNEUMOCOCCAL VACCINE 50+ (1 of 1 - PCV) 2009 ZOSTER VACCINE (1 of 2) 2009 COVID-19 VACCINE (1 - 2023-2 5 season) 2024 AAA SCREENING 2024 DEPRESSION SCREENING 09/04/2024 INFLUENZA VACCINE (#1) 2025 Respiratory Syncytial Virus (RSV) Vaccine Pt: or over 60 yrs (1 - 1-dose 75+ series) 2034 HEPATITIS B VACCINE Aged Out No longe r eligible based on patient's age to complete this topic HIB VACCINE Aged Out No longer eligi ble based on patient's age to complete this topic HPV VACCINE Aged Out No longer eligi ble based on patient's age to complete this topic MENINGOCOCCAL (Group B) VACC INE SHARED DECISION-MAKING Aged Out No longer eligibl e based on patient's age to complete this topic MENINGOCOCCAL GROUPS A/C/Y/W VACCINE Aged Out No longer eligible b ased on patient's age to complete this topic Insurance [place] - [place] [employer] PLAN [facility] MEDICAID - [place] [id number] PAYOR GENERIC [employer] [employer] MEDICAID - [place] * Guarantor: E-SCREEN,SOIL Account Type Relation to Patient Date of Phone Billing Address Company Employer ATTN [employer] [address] Advance Directives * Full Code (Latest Code Status on File) Date Activated Date Inactivated Comments 03/12/2019 1:50 AM 03/14/2019 4:14 PM Care Teams Densitometer Reader Relationship Specialty Start Date End Date Óscar Montano MD PCP - General Family Medicine 04/03/20
--- NOTE | 2025-03-20 19:18 | ECG_ITS ---
Test Date: 2025-03-20 19:38:55 Measurements Intervals [place] Rate: 74 P: 91 [place]: 171 QRS: 3 QRSD: 85 T: 73 QT: 369 QTc: 411 Interpretive Statements SINUS RHYTHM NORMAL ELECTROCARDIOGRAM No previous ECG available for comparison Electronically Signed On 03-21-2025 07:39:00 CDT by Francisco Lynch M.D.
[2025-03-20 20:30] LABS: Hematocrit 34.1 % (42.0-52.0); Hemoglobin 10.1 g/dL (14.0-18.0); Immature Granulocyte Percent A 0.4 % (0-0.5); Lymphocytes Absolute Auto 1.77 K/mm3 (0.9-3.2); Mean Corpuscular HGB Conc 29.6 g/dl (32-36); Mean Corpuscular Hemoglobin 24.8 pg (26-34); Mean Corpuscular Volume 83.6 fl (80-100); Nucleated Red Blood Cells Absolute Auto 0.000 K/mm3 (0.0-0.012); Nucleated Red Blood Cells Perc 0.0 % (0.0-0.2); Platelet Count Result 294 k/mm3 (150-375); Red Blood Count 4.08 M/mm3 (4.6-6.20); White Blood Count 8.0 K/mm3 (4.5-10.0)
[2025-03-20 20:41] LABS: INR 1.2; Prothrombin Time 15.2 Seconds (11.1-14.7)
[2025-03-20 20:42] LABS: Partial Thromboplastin Time 35.0 Seconds (22.3-36.8)
[2025-03-20 20:43] LABS: Alanine Aminotransferase 15 U/L (6-50); Albumin Level 3.8 g/dL (3.5-5.1); Alkaline Phosphatase 75 U/L (38-126); Anion Gap 7 mmol/L (4-12); Aspartate Amino Transferase 28 U/L (17-59); Bilirubin,Total 0.3 mg/dL (0.2-1.3); Blood Urea Nitrogen 17 mg/dL (9-20); Calcium 8.9 mg/dL (8.4-10.2); Carbon Dioxide 26 mmol/L (22-30); Chloride 104 mmol/L (98-107); Estimated Glomerular Filt Rate > 60; Glucose 225 mg/dL (65-110); Lipase 115 U/L (23-300); Potassium 4.4 mmol/L (3.4-5.0); Sodium 137 mmol/L (137-145); Total Protein 7.1 g/dL (6.3-8.2)
[2025-03-20 20:48] LABS: Band Neutrophils Percent 0 % (0-6)
[2025-03-20 20:49] LABS: Ovalocytes 1+; Schistocytes None Seen
[2025-03-20 20:53] LABS: Troponin I < 0.012 ng/mL (0.000-0.034)
[2025-03-20 23:30] VITALS: BP 120/69; PULSE 64; RESP 16; O2SAT 100
--- NOTE | 2025-03-20 23:41 | ED_ITS ---
HPI - Extremity Problem General Chief complaint: Extremity Problem,Nontraumatic Stated complaint: L shoulder pain Time Seen by Provider: 03/20/25 23:18 History of Present Illness HPI Narrative: 64-year-old male with a past medical history including chronic orthopedic related injuries and pain with multiple surgical procedures previously. He presents from [facility] where he is a resident for alcohol abuse. Patient presents with complaints of shoulder pain after using his shoulders extensively at the gym today. Patient states that he has not gone to the gym in quite some time and may have over did it. Denies any chest pain, nausea, vomiting, abdominal pain, back pain. Has a chronic rotator cuff injury in his left upper extremity at the shoulder and a chronic injury to his right upper extremity from a fall 1 year ago. He has a chronic deformity with AC separation on the right side which he is aware of. Previously gone to chiropractors and orthopedic doctors with physical therapy that has done well for his pain and symptoms but currently he is at rehab and having worsening pain today as he does not have any prescription medications. He is requesting Naprosyn and a muscle relaxer. He has been using Robaxin without any relief. Patient does not like opiate related medications. Patient is wearing a Holter monitor at this time but denies any chest pain, shortness a breath, nausea, vomiting. Otherwise feels well from a health perspective and major complaint is shoulder pain from the last several hours after going to the gym. Related Data Allergies Allergy/AdvReac Type Severity Reaction Status Date / Time No Known Allergies Allergy Unverified 10/05/22 15:17 Review of Systems 2 Review of Systems: As reviewed above in HPI Exam 2 Narrative: GENERAL: [Well-appearing, well-nourished, and in no acute distress.] HEAD: [Normocephalic, atraumatic.] EYES: [PERRLA and EOMI.] ENT: Nares clear, no rhinorrhea or epistaxis. Mucous membranes moist. NECK: Supple. CHEST: [Clear to auscultation. No respiratory distress.] HEART: [Regular rate and rhythm]. No murmur heard. Normal peripheral pulses ABDOMEN: [Soft, nondistended], [nontender], [No rigidity or guarding] EXTREMITIES: Chronic appearing AC separation on the right upper extremity, diffuse crepitus with palpation of both shoulders and scapular bones, passive and active range of motion is intact bilaterally, underground production foreperson strength 5/5 bilaterally, able to oppose each digit, flex and extend at the shoulder, abduct and adduct the shoulder bilaterally, no overlying skin deformities otherwise. No midline spinal tenderness. SKIN: Warm, dry, no rash. NEURO: [No focal deficits]. Alert and oriented [x3.] PSYCH: [Normal mood and affect.] Course Vital Signs Vital signs: Vital Signs Temperature 36.7 C 03/20/25 19:13 Pulse Rate 71 03/20/25 19:13 Respiratory Rate 16 03/20/25 19:13 Blood Pressure 132/74 03/20/25 19:13 Pulse Oximetry 100 03/20/25 19:13 Oxygen Delivery Room Air 03/20/25 19:13 Temperature 36.7 C 03/20/25 19:13 Pulse Rate 64 03/20/25 23:30 Respiratory Rate 16 03/20/25 23:30 Blood Pressure 120/69 03/20/25 23:30 Pulse Oximetry 100 03/20/25 23:30 Oxygen Delivery Room Air 03/20/25 23:30 MDM - Extremity (Nontraumatic) MDM Narrative Medical decision making narrative: 64-year-old male with a past medical history including chronic orthopedic related injuries and pain with multiple surgical procedures previously. He presents from [facility] where he is a resident for alcohol abuse. Patient presents with complaints of shoulder pain after using his shoulders extensively at the gym today. Patient states that he has not gone to the gym in quite some time and may have over did it. Denies any chest pain, nausea, vomiting, abdominal pain, back pain. Has a chronic rotator cuff injury in his left upper extremity at the shoulder and a chronic injury to his right upper extremity from a fall 1 year ago. He has a chronic deformity with AC separation on the right side which he is aware of. Previously gone to chiropractors and orthopedic doctors with physical therapy that has done well for his pain and symptoms but currently he is at rehab and having worsening pain today as he does not have any prescription medications. He is requesting Naprosyn and a muscle relaxer. He has been using Robaxin without any relief. Patient does not like opiate related medications. Patient is wearing a Holter monitor at this time but denies any chest pain, shortness a breath, nausea, vomiting. Otherwise feels well from a health perspective and major complaint is shoulder pain from the last several hours after going to the gym. Chronic appearing AC separation on the right upper extremity, diffuse crepitus with palpation of both shoulders and scapular bones, passive and active range of motion is intact bilaterally, underground production foreperson strength 5/5 bilaterally, able to oppose each digit, flex and extend at the shoulder, abduct and adduct the shoulder bilaterally, no overlying skin deformities otherwise. No midline spinal tenderness. Patient has normal vital signs and overall well-appearing. Given his chronic orthopedic history and the fact that he is wearing a Holter monitor at this time triage laboratory studies were ordered including a troponin, EKG, chest x-ray, shoulder x-ray, CBC, CMP. Patient was given Naprosyn and tizanidine for symptom control and re-evaluated. Workup shows no leukocytosis, anemia of 10.0 but no signs of bleeding. History of anemia previously on labs. Normal platelet count. Electrolytes unremarkable. Normal creatinine, normal LFTs and normal lipase. Negative troponin. X-ray show chronic appearing scapular fracture and AC separation which patient is aware of. Shoulder x-ray shows no acute osseous findings in the left shoulder where most of his pain is located. Per patient felt improved after treatment regimen and can safely go back to his rehab facility with prescriptions for anti-inflammatories such as Naprosyn and tizanidine as needed. He was given referral for orthopedics and safely discharged after questions were answered. Lab Data 03/20/25 20:22 03/20/25 20:22 Labs: Lab Results 03/20/25 Range/Units 20:22 WBC 8.0 (4.5-10.0) K/mm3 RBC 4.08 L (4.6-6.20) M/mm3 Hgb 10.1 L (14.0-18.0) g/dL Hct 34.1 L (42.0-52.0) % MCV 83.6 (80-100) fl MCH 24.8 L (26-34) pg MCHC 29.6 L (32-36) g/dl RDW 22.2 H (11.5-14.5) % Plt Count 294 (150-375) k/mm3 MPV 9.7 (7.4-10.4) fl Immature Gran % (Auto) 0.4 (0-0.5) % Neut % (Auto) 61.9 (45.5-73.1) % Lymph % (Auto) 22.1 (18.3-44.2) % Walker % (Auto) 12.5 H (2.6-8.5) % Eos % (Auto) 2.6 (0-4.4) % Baso % (Auto) 0.5 (0.2-1.2) % Lymph # (Auto) 1.77 (0.9-3.2) K/mm3 Walker # (Auto) 1.0 H (0.1-0.6) K/mm3 Eos # (Auto) 0.2 (0-0.3) K/mm3 Baso # (Auto) 0.0 (0.0-0.1) K/mm3 Abs Immat Gran (auto) 0.03 (0.00-0.031) K/mm3 Absolute Neuts (auto) 5.0 (1.3-6.7) K/mm3 Absolute Nucleated RBC 0.000 (0.0-0.012) K/mm3 Band Neutrophils % 0 (0-6) % Nucleated RBC % 0.0 (0.0-0.2) % Platelet Estimate Adequate (Adequate) Ovalocytes 1+ Schistocytes None seen PT 15.2 H (11.1-14.7) Seconds INR 1.2 APTT 35.0 (22.3-36.8) Seconds Sodium 137 (137-145) mmol/L Potassium 4.4 (3.4-5.0) mmol/L Chloride 104 (98-107) mmol/L Carbon Dioxide 26 (22-30) mmol/L Anion Gap 7 (4-12) mmol/L BUN 17 (9-20) mg/dL Creatinine 0.81 (0.7-1.3) mg/dL Estim Creat Clear Calc Not Reportable Estimated GFR > 60 (59 - ) Glucose 225 H (65-110) mg/dL Calcium 8.9 (8.4-10.2) mg/dL Total Bilirubin 0.3 (0.2-1.3) mg/dL AST 28 (17-59) U/L ALT 15 (6-50) U/L Alkaline Phosphatase 75 (38-126) U/L Troponin I < 0.012 (0.000-0.034) ng/mL Total Protein 7.1 (6.3-8.2) g/dL Albumin 3.8 (3.5-5.1) g/dL Lipase 115 (23-300) U/L Discharge Plan Discharge Clinical Impression: Chronic pain in shoulder, Chronic fracture, Scapular fracture, AC separation Patient Disposition: Home Condition: Stable Instructions: Antibiotic Form, Scapular Fracture (ED), Musculoskeletal Pain (ED), Shoulder Pain (ED) Additional Instructions: X-ray show a chronic scapular fracture on the right side as well as AC joint separation on the right side which is seen on your examination. Your laboratory studies are all reassuring, no signs of any heart issues at this time. Will prescribe you naproxen 500 mg twice daily as well as tizanidine to be taken for muscle relaxation. For the next 48 hours use ice up to 20 minutes at a time to the area that is in pain and then you can start adding and heat and heat pads to the ice regimen after 2 days. Follow-up with orthopedic doctor and they will likely prescribe physical therapy for you. Return with any emergent concerns at any time. Patient Language: Mongolian Prescriptions: New naproxen 500 mg tablet 500 mg PO BID PRN (Reason: pain) 30 Days Qty: 60 0RF tizanidine 2 mg capsule 2 mg PO Q8H PRN (Reason: muscle spasticity) Qty: 30 0RF Follow-up/Referrals: Odilon Teresa MD [Physician] - 2 Weeks (Chronic shoulder pain, chronic AC separation and chronic scapular fracture) William Tobar MD [Primary Care Provider] - Time of Disposition: 23:41
[2025-03-20] MEDS: NAPROXEN 500 MG TABLET PO (23:55)
[2025-03-20] MEDS: TIZANIDINE HCL 2 MG TABLET PO (23:55)
--- OUTSIDE RECORDS SUMMARY | 2025-03-21 00:08 | XMS_ITS | Clinical Summary ---
Author Organization 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 Gender Identity Not on file Sexual Orientation Not on file Last Filed Vital Signs Vital Sign Reading Time Taken Comments Blood Pressure 148/69 11/05/2020 1:30 AM KENNEL KEEPER Pulse 69 11/05/2020 1:30 AM KENNEL KEEPER Temperature 36.8 C (98.2 F) 11/04/2020 9:39 PM KENNEL KEEPER Respiratory Rate 14 11/05/2020 1:30 AM KENNEL KEEPER Oxygen Saturation 99% 11/05/2020 1:30 AM KENNEL KEEPER Inhaled Oxygen Concentration - - Weight 99.8 kg (220 lb) 11/04/2020 9:39 PM KENNEL KEEPER Height 180.3 cm (5' 11) 11/04/2020 9:39 PM KENNEL KEEPER Body Mass Index 30.68 11/04/2020 9:39 PM KENNEL KEEPER Plan of Treatment Health Maintenance Due Date [...] this topic Medical Devices Implanted Type Area Radio Repairer Device Identifier Shelf Expiration Date Model / Serial / Lot Scr Bn 6.5mm 150mm 16mm Ss P/T Lg Bn Cnn - [id number] Implanted:Qty: 1 on 10/04/2015 by Alice Birmingham MD at [facility] IMPLANT Right: Sacrum [employer] 208.452 / / NONE Wshr 13mm 6.6mm Lcp Orth Ss 4.5-7.3mm - [id number] Implanted:Qty: 2 on 10/04/2015 by Alice Birmingham MD at [facility] IMPLANT Right: Sacrum [employer] 219.990 / / NONW Screw 32 X 155mm Implanted:Qty: 1 on 10/04/2015 by Alice Birmingham MD at [facility] Sacrum [employer] 209-955S / / [id number] Insurance MEDICARE [place]ID [place] Advance Directives * Full Code (Latest Code Status on File) Date Activated Date Inactivated Comments 10/04/2015 9:13 AM 10/10/2015 5:40 PM Full Code: FULL ARREST: Attempt Resuscitation/CPR and use intubation and mechanical ventilation as indicated. PRE-ARREST: Use all measures to stabilize patient. Care Teams Laundry Presser Relationship Specialty Start Date End Date Harley Mitchell MD [address] [place] [address] PCP - General Internal Medicine 10/04/15
--- OUTSIDE RECORDS SUMMARY | 2025-03-21 00:08 | XMS_ITS | Clinical Summary ---
Author Organization [facility] [employer] Address [address] [place] [address] Care Team Providers Care Purchasing Clerk Name Role Phone Óscar Montano MD Primary Care Provider [phone] Source Comments [facility],non-owned Affiliates and Associated Physician Practices is amultiple site organization consisting of ambulatory clinics and hospital sitesin [place], [place], [place] and [place]. This disclosure is being madepursuant to the Care Everywhere program and may not contain all information available regarding this patient. 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 Gender Identity Not on file Sexual Orientation [...] complete this topic Insurance [place] Access Scientific PLAN [facility] [place]ICAID - [place] [id number] [employer]IC [place] [facility] [employer] MEDICAID - [place] * Guarantor: E-SCREEN,SOIL Account Type Relation to Patient Date of Phone Billing Address Company Employer ATTN [employer] [address] Advance Directives * Full Code (Latest Code Status on File) Date Activated Date Inactivated Comments 03/12/2019 1:50 AM 03/14/2019 4:14 PM Care Teams Purchasing Clerk Relationship Specialty Start Date End Date Óscar Montano MD PCP - General Family Medicine 04/03/20
[2025-03-21 00:11] VITALS: BP 136/63; PULSE 65; RESP 15; O2SAT 100
--- NOTE | 2025-03-21 00:38 | PC.NURSE ---
Spoke with Tiffany at [facility] and gave report. States that one of her staff members will be over to pick him up shortly.
== END 2025-03-21 00:11 | disposition home or self-care (01) ==
LOC: ANHED 03-21 00:04
PROVIDERS: Emergency Provider Student in an Organized Health Care Education/Training Program; PCP Emergency Medicine
DX: M25.512 Pain in left shoulder (principal); G89.21 Chronic pain due to trauma; S42.101S Fracture of unspecified part of scapula, right shoulder, sequela; S46.012S Strain of muscle(s) and tendon(s) of the rotator cuff of left shoulder, sequela; F10.10 Alcohol abuse, uncomplicated; Y90.9 Presence of alcohol in blood, level not specified; W19.XXXS Unspecified fall, sequela
CPT/HCPCS: 36415; 71046; 73030; 80053; 83690; 84484; 85025; 85610; 85730; 93005; 99284; A9270